=== PATIENT | female | born 1955 | race Caucasian/White ===

== ENCOUNTER 2017-08-14 15:01 | Inpatient (IN) | payer BC ==
[2017-08-14] MEDS ORDERED: ASPIRIN 81 MG PO STA (15:52)
--- NOTE | 2017-08-14 15:56 | ED ---
General Adult HPI - General Chief complaint: Recheck/Abnormal Lab/Rx Stated complaint: Hypertension Time Seen by Provider: 08/14/17 15:37 Source: patient Mode of arrival: ambulatory Limitations: no limitations - History of Present Illness Initial comments: Patient is a 62-year-old female presenting for abdominal chest discomfort. She states that she was in her yard earlier today and she felt like her heart was "flipping" and she was having "strong muscle contractions". She also admits to "chest discomfort" but no overt chest pain. She states that she has a history of hypertension, thyroid disease and has been taking her blood pressure and measured 166/90, 145/92 and also denies any nausea/vomiting/diarrhea or shortness of breath. Pt also denies any prolonged periods of immobility, CA, DVT /PE, estrogen use, or recent surgery. - Related Data Home Medications Medication Instructions Recorded Confirmed Gabapentin [Neurontin] 100 mg PO BID 08/14/17 08/14/17 Levothyroxine Sodium [Levoxyl] 75 mcg PO DAILY 08/14/17 08/14/17 Lisinopril-Hctz 20-25 mg 1 tab PO DAILY 08/14/17 08/14/17 [Zestoretic 20-25] amLODIPine [Norvasc] 5 mg PO DAILY 08/14/17 08/14/17 Previous Rx's Medication Instructions Recorded Hydrocodone/Acetaminophen [[place] 1 each PO Q6HR PRN #15 tab 08/02/13 5-325] Allergies Allergy/AdvReac Type Severity Reaction Status Date / Time Penicillins Allergy Itching Verified 08/14/17 15:14 Review of Systems ROS Statement: Those systems with pertinent positive or pertinent negative responses have been documented in the HPI. Constitutional: Negative for chills, fatigue and fever. HENT: Negative for congestion. Respiratory: Negative for chest tightness, shortness of breath and wheezing. Negative for cough Cardiovascular: Positive for chest pain and palpitations. Gastrointestinal: Negative for abdominal pain. Negative for abdominal distention , diarrhea, nausea and vomiting. Genitourinary: Negative for dysuria. Musculoskeletal: Negative for back pain, neck pain and neck stiffness. Skin: Negative for color change. Neurological: Negative for dizziness, speech difficulty, weakness and light- headedness. Psychiatric/Behavioral: Negative for agitation and confusion. The patient is not nervous/anxious. ROS Other: All systems not noted in ROS Statement are negative. Past Medical History Past Medical History: Hyperlipidemia, Hypertension History of Any Multi-Drug Resistant Organisms: None Reported Past Surgical History: No Surgical Hx Reported Past Psychological History: No Psychological Hx Reported Smoking Status: Never smoker Past Alcohol Use History: None Reported Past Drug Use History: None Reported General Exam - General Exam Comments Initial Comments: Constitutional: Pt is oriented to person, place, and time. Pt appears well- developed and well-nourished. No distress. HENT: Head: Normocephalic and atraumatic. Eyes: EOM are normal. Neck: Normal range of motion. Neck supple. Cardiovascular: Irregular rhythm, normal rate, S1 normal, S2 normal and normal heart sounds. Exam reveals no gallop and no friction rub. No murmur heard. Pulmonary/Chest: Effort normal and breath sounds normal. No tachypnea and no bradypnea. No respiratory distress. No wheezes or rales noted. Abdominal: Soft. Bowel sounds are normal. Pt exhibits no shifting dullness, no distension, no pulsatile liver, no fluid wave, no abdominal bruit and no ascites. There is no tenderness. There is no rigidity, no rebound, no guarding, no tenderness at McBurney's point and negative Bear's sign. Musculoskeletal: Normal range of motion. Neurological: Pt is alert and oriented to person, place, and time. No cranial nerve deficit. Skin: Skin is warm and dry. No rash noted. Pt is not diaphoretic. No erythema. No pallor. Psychiatric: Pt has a normal mood and affect. Pt behavior is normal. Thought content normal. Limitations: no limitations Course Vital Signs 08/14/17 08/14/17 15:12 16:25 Temperature 98.1 F Pulse Rate 60 78 Respiratory 20 20 Rate Blood Pressure 140/92 158/102 O2 Sat by Pulse 100 99 Oximetry EKG Findings - EKG Comments: EKG Findings:: EKG shows atrial fibrillation with significant artifact in leads 2 and 3. However there are no significant ST depressions or elevations. Rate is 78 bpm, QRS 98, QTC 446. Medical Decision Making - Medical Decision Making Laboratory studies showed that there is no leukocytosis and coagulations were within normal limits. Electrolytes are relatively normal and troponin was negative. BNP was also pending at the time of disposition. EKG did show atrial fibrillation which appears to be new onset and therefore the patient was started on low intensity heparin.Explained all labs and diagnostic test results and that we will admit patient to hospital. Pt is agreeable to plan and case has been discussed with Dr. Tierney and they agree to accept the pt. additionally , medications to cardiac for the patient were not given as it is unclear whether this is a 48 hour timeframe. - Lab Data Result diagrams: 08/14/17 16:20 08/14/17 16:20 Lab Results 08/14/17 08/14/17 08/14/17 Range/Units 16:20 16:20 16:20 WBC 6.7 (3.8-10.6) k/uL RBC 4.81 (3.80-5.40) m/uL Hgb 14.8 (11.4-16.0) gm/dL Hct 41.8 (34.0-46.0) % MCV 86.9 (80.0-100.0) fL MCH 30.8 (25.0-35.0) pg MCHC 35.5 (31.0-37.0) g/dL RDW 12.7 (11.5-15.5) % Plt Count 193 (150-450) k/uL Neutrophils % 60 % Lymphocytes % 32 % Monocytes % 5 % Eosinophils % 1 % Basophils % 1 % Neutrophils # 4.0 (1.3-7.7) k/uL Lymphocytes # 2.1 (1.0-4.8) k/uL Monocytes # 0.4 (0-1.0) k/uL Eosinophils # 0.1 (0-0.7) k/uL Basophils # 0.1 (0-0.2) k/uL PT 10.5 (9.0-12.0) sec INR 1.1 (<1.2) APTT 24.1 (22.0-30.0) sec Sodium 139 (137-145) mmol/L Potassium 3.3 L (3.5-5.1) mmol/L Chloride 98 (98-107) mmol/L Carbon Dioxide 26 (22-30) mmol/L Anion Gap 15 mmol/L BUN 16 (7-17) mg/dL Creatinine 0.58 (0.52-1.04) mg/dL Est GFR (CKD-EPI)AfAm >90 (>60 ml/min/1.73 sqM) Est GFR (CKD-EPI)NonAf >90 (>60 ml/min/1.73 sqM) Glucose 93 (74-99) mg/dL Calcium 9.6 (8.4-10.2) mg/dL Magnesium 1.8 (1.6-2.3) mg/dL Total Bilirubin 1.6 H (0.2-1.3) mg/dL AST 19 (14-36) U/L ALT 29 (9-52) U/L Alkaline Phosphatase 61 (38-126) U/L Troponin I (0.000-0.034) ng/mL Total Protein 7.2 (6.3-8.2) g/dL Albumin 4.2 (3.5-5.0) g/dL 08/14/17 Range/Units 16:20 WBC (3.8-10.6) k/uL RBC (3.80-5.40) m/uL Hgb (11.4-16.0) gm/dL Hct (34.0-46.0) % MCV (80.0-100.0) fL MCH (25.0-35.0) pg MCHC (31.0-37.0) g/dL RDW (11.5-15.5) % Plt Count (150-450) k/uL Neutrophils % % Lymphocytes % % Monocytes % % Eosinophils % % Basophils % % Neutrophils # (1.3-7.7) k/uL Lymphocytes # (1.0-4.8) k/uL Monocytes # (0-1.0) k/uL Eosinophils # (0-0.7) k/uL Basophils # (0-0.2) k/uL PT (9.0-12.0) sec INR (<1.2) APTT (22.0-30.0) sec Sodium (137-145) mmol/L Potassium (3.5-5.1) mmol/L Chloride (98-107) mmol/L Carbon Dioxide (22-30) mmol/L Anion Gap mmol/L BUN (7-17) mg/dL Creatinine (0.52-1.04) mg/dL Est GFR (CKD-EPI)AfAm (>60 ml/min/1.73 sqM) Est GFR (CKD-EPI)NonAf (>60 ml/min/1.73 sqM) Glucose (74-99) mg/dL Calcium (8.4-10.2) mg/dL Magnesium (1.6-2.3) mg/dL Total Bilirubin (0.2-1.3) mg/dL AST (14-36) U/L ALT (9-52) U/L Alkaline Phosphatase (38-126) U/L Troponin I <0.012 (0.000-0.034) ng/mL Total Protein (6.3-8.2) g/dL Albumin (3.5-5.0) g/dL Disposition Clinical Impression: Atrial fibrillation Disposition: ADMITTED IP TO THIS HOSP Condition: Good Referrals: Carol Curtis MD [Primary Care Provider] - 1-2 days Time of Disposition: 17:38 Decision to Admit Reason: Admit from EC Decision Date: 08/14/17 Decision Time: 17:38
[2017-08-14 16:42] LABS: Basophils # (A) 0.1 k/uL (0-0.2); Basophils % (A) 1 %; Eosinophils # (A) 0.1 k/uL (0-0.7); Eosinophils % (A) 1 %; HCT 41.8 % (34.0-46.0); HGB 14.8 gm/dL (11.4-16.0); Lymphocytes # (A) 2.1 k/uL (1.0-4.8); Lymphocytes % (A) 32 %; MCH 30.8 pg (25.0-35.0); MCHC 35.5 g/dL (31.0-37.0); MCV 86.9 fL (80.0-100.0); Mean Platelet Volume 8.2; Monocytes # (A) 0.4 k/uL (0-1.0); Monocytes % (A) 5 %; Neutrophils % (A) 60 %; Platelet Count 193 k/uL (150-450); RBC 4.81 m/uL (3.80-5.40); RDW 12.7 % (11.5-15.5); WBC 6.7 k/uL (3.8-10.6)
[2017-08-14 16:50] LABS: INR 1.1 (<1.2); Partial Thromboplastin Time 24.1 sec (22.0-30.0); Prothrombin Time 10.5 sec (9.0-12.0)
--- NOTE | 2017-08-14 16:50 | XR ---
EXAMINATION TYPE: XR chest 2V DATE OF EXAM: 08/14/2017 COMPARISON: Prior chest x-ray 05/24/2011 HISTORY: Chest pain and hypertension TECHNIQUE: Frontal and lateral views of the chest are obtained. FINDINGS: Is no interval change. Patient is rotated. There are overlying cardiac leads. IMPRESSION: Cardiomegaly.
[2017-08-14 16:56] LABS: ALT 29 U/L (9-52); AST 19 U/L (14-36); Albumin 4.2 g/dL (3.5-5.0); Alkaline Phosphatase 61 U/L (38-126); Anion Gap 15 mmol/L; Blood Urea Nitrogen 16 mg/dL (7-17); Calcium 9.6 mg/dL (8.4-10.2); Carbon Dioxide 26 mmol/L (22-30); Chloride 98 mmol/L (98-107); Glucose 93 mg/dL (74-99); Magnesium 1.8 mg/dL (1.6-2.3); Potassium 3.3 mmol/L (3.5-5.1); Sodium 139 mmol/L (137-145); Total Bilirubin 1.6 mg/dL (0.2-1.3); Total Protein 7.2 g/dL (6.3-8.2)
[2017-08-14] MEDS ORDERED: HEPARIN SODIUM,PORCINE 5,000 UNIT/ML 1 ML VIAL IV ONE (17:28)
[2017-08-14] MEDS ORDERED: HEPARIN SODIUM,PORCINE 5,000 UNIT/ML 1 ML VIAL IV PRN (17:28)
[2017-08-14] MEDS ORDERED: HEPARIN SOD,PORK IN 0.45% NACL 25,000 UNIT in 0.45% NACL 1 500ML.BAG IV SCH (17:30)
[2017-08-14] MEDS ORDERED: NALOXONE 0.4 MG/ML 1 ML VIAL IV PRN (17:39)
[2017-08-14] MEDS: HEPARIN SODIUM,PORCINE/D5W PMX 25,000 UNIT in DEXTROSE/WATER 1 500ML.BAG IV SCH (18:54)
[2017-08-14] MEDS ORDERED: GABAPENTIN 300 MG CAP PO STA (20:37)
[2017-08-14] MEDS ORDERED: HYDROcodone/APAP 5-325MG 1 EACH TAB PO PRN (21:12)
[2017-08-14 21:41] VITALS: BMI 26.9
[2017-08-14] MEDS ORDERED: Potassium Replacement Protocol 1 EACH MISC MISCELLANE PRN (22:48)
[2017-08-14] MEDS: POTASSIUM CHLORIDE ER 20 MEQ TAB.ER PO SCH (23:12)
[2017-08-15] MEDS: POTASSIUM CHLORIDE ER 20 MEQ TAB.ER PO SCH ×3 (00:27→12:18)
--- NOTE | 2017-08-15 00:47 | P.HPIM ---
History of Present Illness H&P Date: 08/14/17 Chief Complaint: Chest discomfort Patient is a 62-year-old female with a known history of hypertension, hyperlipidemia and hypothyroidism came to ER with complaints of chest pressure and palpitations. She states that she was in her yard earlier today and she felt like her heart was "flipping" and she was having "strong muscle contractions". She has been taking her blood pressure and measured 166/90, 145/ 92 and also denies any nausea/vomiting/diarrhea or shortness of breath. Pt also denies any prolonged periods of immobility, CA, DVT/PE, estrogen use, or recent surgery. Patient says that her mother had cancer and she has been stressful recently. Patient denied any recent illnesses. No fever no chills. No recent travel. Patient says is still having chest pressure. BNP 1020 TSH 2.5 Troponin 2 negative Chest x-ray showed cardiomegaly. EKG showed atrial fibrillation with ventricular rate of 78 Review of Systems Constitutional: Patient denies any fever or chills . No generalized weakness or weight loss. Abdomen: Patient denied nausea vomiting and diarrhea and abdominal pain. Cardiovascular: Patient does have chest pressure. Denied any chest pain. No shortness of breath. No leg swelling. Respiratory: patient denied any cough is from production. No shortness of breath Neurologic: Patient denied any numbness or tingling headache. Musculoskeletal: Patient denies any complaints of joint swelling or deformity. Skin: Negative Psychiatric: Negative Endocrine: No heat or cold intolerance. No recent weight gain. Genitourinary: No dysuria or hematuria. All other 14 point ROS negative except the above Past Medical History Past Medical History: Hyperlipidemia, Hypertension History of Any Multi-Drug Resistant Organisms: None Reported Past Surgical History: No Surgical Hx Reported Smoking Status: Never smoker - Past Family History Mother Family Medical History: Cancer Additional Family Medical History / Comment(s): colon ca, uterine ca Father Family Medical History: No Reported History Medications and Allergies Home Medications Medication Instructions Recorded Confirmed Type Hydrocodone/Acetaminophen [[place] 1 each PO Q6HR PRN #15 tab 08/02/13 08/14/17 Rx 5-325] Gabapentin [Neurontin] 100 mg PO BID 08/14/17 08/14/17 History Levothyroxine Sodium [Levoxyl] 75 mcg PO DAILY 08/14/17 08/14/17 History Lisinopril-Hctz 20-25 mg 1 tab PO DAILY 08/14/17 08/14/17 History [Zestoretic 20-25] amLODIPine [Norvasc] 5 mg PO DAILY 08/14/17 08/14/17 History Allergies Allergy/AdvReac Type Severity Reaction Status Date / Time Penicillins Allergy Itching Verified 08/14/17 15:14 Physical Exam Vitals: Vital Signs Temp Pulse Pulse Resp BP BP Pulse Ox 08/14/17 21:36 97.4 F L 90 16 144/97 94 L 08/14/17 20:40 98 20 160/80 95 08/14/17 18:59 63 10 L 163/95 96 08/14/17 18:00 71 20 163/109 99 08/14/17 17:00 78 20 158/89 96 08/14/17 16:25 78 20 158/102 99 08/14/17 15:12 98.1 F 60 20 140/92 100 Intake and Output 08/14/17 08/14/17 08/14/17 06:59 14:59 22:59 Other: # Voids 1 Weight 82.5 kg PHYSICAL EXAMINATION: Patient is lying in the bed comfortably, no acute distress, awake alert and oriented.. HEENT: Normocephalic. Neck is supple. Pupils reactive. Nostrils clear. Oral cavity is moist. Ears reveal no drainage. Neck reveals no JVD, carotid bruits, or thyromegaly. CHEST EXAMINATION: Trachea is central. Symmetrical expansion. Lung goldman clear to auscultation and percussion. CARDIAC: Normal S1, S2 with no gallops. Irregularly irregular rhythm. No murmurs ABDOMEN: Soft. Bowel sounds normal. No organomegaly. No abdominal bruits. Extremities: reveal no edema. No clubbing or cyanosis Neurologically awake, alert, oriented x3 with well-coordinated movements. No focal deficits noted Skin: No rash or skin lesions. Psychiatric: Coperative. Nonsuicidal. Anxious. Musculoskeletal: No joint swelling or deformity. Normal range of motion. Results CBC & Chem 7: 08/14/17 16:20 08/14/17 16:20 Labs: Abnormal Lab Results - Last 24 Hours (Table) 08/14/17 Range/Units 16:20 Potassium 3.3 L (3.5-5.1) mmol/L Total Bilirubin 1.6 H (0.2-1.3) mg/dL Assessment and Plan Assessment: New onset atrial fibrillation. No RVR Hypertension Hyperlipidemia Hypothyroidism Mild hypokalemia 3.3 Plan: Patient was started on heparin drip. Replace percussion. Current with home medications. Cardiology consultation. Continue the telemetry monitoring and serial troponins and EKG. Continue with home blood pressure medications . Norvasc, hydrochlorothiazide/ lisinopril. Further recommendations based on the clinical course. Time with Patient: Greater than 30
[2017-08-15] MEDS: LEVOTHYROXINE 75 MCG TAB PO SCH (06:30)
[2017-08-15 08:29] LABS: Anion Gap 13 mmol/L; Blood Urea Nitrogen 13 mg/dL (7-17); Calcium 8.9 mg/dL (8.4-10.2); Carbon Dioxide 26 mmol/L (22-30); Chloride 98 mmol/L (98-107); Glucose 97 mg/dL (74-99); Potassium 3.1 mmol/L (3.5-5.1); Sodium 137 mmol/L (137-145)
[2017-08-15] MEDS ORDERED: GABAPENTIN 100 MG CAP PO SCH (09:00)
[2017-08-15] MEDS: LISINOPRIL-HCTZ 20-25 MG 1 EACH TAB PO SCH (09:05)
[2017-08-15] MEDS: amLODIPine 5 MG TAB PO SCH (09:16)
[2017-08-15] MEDS ORDERED: Potassium Replacement Protocol 1 EACH MISC MISCELLANE PRN (09:55)
[2017-08-15] MEDS: CARVEDILOL 3.125 MG TAB PO SCH ×2 (11:29→16:57)
--- NOTE | 2017-08-15 14:26 | P.CRDCN ---
History of Present Illness History of present illness: Mr. Cervantes a pleasant 62 year female past medical history significant for hypertension, hypothyroidism and previous CVA. She denies history of coronary artery disease, atrial fibrillation, dyslipidemia or diabetes mellitus. She states she has never seen a lead refiner for any reason. We have see her in consultation for new onset atrial fibrillation. She states over the previous few days she's been feeling increasingly weak fatigued and with some palpitations in her chest. She presents to the hospital and EKG revealed atrial fibrillation with controlled ventricular response. She has been started on a heparin infusion. Her heart rate has remained controlled on telemetry with no evidence of rapid ventricular response. She complains of generalized chest discomfort described as a tight sensation with mild shortness of breath. She states when she gets up and mildly encroaches of her heart rate goes up to approximately 160s. Laboratory data reviewed, hemoglobin 14.8, platelets 193, sodium 137, potassium 3.1, magnesium 1.8, creatinine 0.6, TSH 2.58, proBNP 1020, cardiac enzymes negative 1. Current cardiac medications include Norvasc 5 mg daily, Zestoretic 20/25 mg daily. She states she suffered a CVA when she was 40 years old but she does not recall many details from that moment that she had some right-sided weakness that has since resolved. She is unclear if this was a hemorrhagic or ischemic stroke. Review of Systems At the time of my exam: CONSTITUTIONAL: Denies fever. Denies chills. EYES: Denies blurred vision. Denies vision changes. Denies eye pain. EARS, NOSE, MOUTH & THROAT: Denies headache. Denies sore throat. Denies ear pain. CARDIOVASCULAR: Complains of nonspecific chest discomfort. Denies shortness of breath. Denies orthopnea. Denies PND. Complains of palpitations with exertion. RESPIRATORY: Denies cough. GASTROINTESTINAL: Denies abdominal pain. Denies diarrhea. Denies constipation. Denies nausea. Denies vomiting. MUSCULOSKELETAL: Denies myalgias. INTEGUMENTARY: Denies pruitis. Denies rash. NEUROLOGIC: Denies numbness. Denies tingling. Denies weakness. PSYCHIATRIC: Denies anxiety. Denies depression. ENDOCRINE: Denies fatigue. Denies weight change. Denies polydipsia. Denies polyurina. GENITOURINARY: Denies burning, hematuria or urgency with micturation. HEMATOLOGIC: Denies history of anemia. Denies bleeding. Past Medical History Past Medical History: Hyperlipidemia, Hypertension History of Any Multi-Drug Resistant Organisms: None Reported Past Surgical History: No Surgical Hx Reported Past Anesthesia/Blood Transfusion Reactions: No Reported Reaction Smoking Status: Never smoker - Past Family History Mother Family Medical History: Cancer Additional Family Medical History / Comment(s): colon ca, uterine ca Father Family Medical History: No Reported History Medications and Allergies Home Medications Medication Instructions Recorded Confirmed Type Gabapentin [Neurontin] 100 mg PO DAILY@1200 08/14/17 08/15/17 History Levothyroxine Sodium [Levoxyl] 75 mcg PO DAILY 08/14/17 08/15/17 History Lisinopril-Hctz 20-25 mg 1 tab PO DAILY 08/14/17 08/15/17 History [Zestoretic 20-25] amLODIPine [Norvasc] 5 mg PO DAILY 08/14/17 08/15/17 History Gabapentin [Neurontin] 300 mg PO BID 08/15/17 08/15/17 History Allergies Allergy/AdvReac Type Severity Reaction Status Date / Time Penicillins Allergy Itching Verified 08/15/17 12:03 Physical Exam Vitals: Vital Signs Temp Pulse Pulse Resp BP BP Pulse Ox 08/15/17 12:00 98.3 F 71 18 119/87 95 08/15/17 07:42 98.3 F 76 18 127/82 92 L 08/15/17 03:40 76 16 117/84 93 L 08/14/17 23:10 97.7 F 70 16 131/84 94 L 08/14/17 21:36 97.4 F L 90 16 144/97 94 L 08/14/17 21:00 97.4 F L 90 16 144/97 94 L 08/14/17 20:40 98 20 160/80 95 08/14/17 18:59 63 10 L 163/95 96 08/14/17 18:00 71 20 163/109 99 08/14/17 17:00 78 20 158/89 96 08/14/17 16:25 78 20 158/102 99 08/14/17 15:12 98.1 F 60 20 140/92 100 Intake and Output 08/14/17 08/15/17 08/15/17 22:59 06:59 14:59 Intake Total 125.376 960 Balance 125.376 960 Intake: Intake, IV Titration 125.376 Amount Heparin Sodium,Porcine/ 125.376 D5w Pmx 25,000 unit In Dextrose/Water 1 500ml. bag @ 12 UNITS/KG/HR 19. 59 mls/hr IV .Q24H ANMOL Rx #:[id number] Oral 960 Other: # Voids 1 1 1 Weight 82.5 kg 82.3 kg Blood pressure 119/87 heart rate 71 afebrile maintaining oxygen saturation on room air GENERAL: This is a 62-year-old female in no apparent distress at the time of my examination. HEENT: Head is atraumatic, normocephalic. Pupils are equal, round. Sclerae anicteric. Conjunctivae are clear. Mucous membranes of the mouth are moist. Neck is supple. There is no jugular venous distention. No carotid bruit is heard. LUNGS: Clear to auscultation no wheezes, rales or rhonchi. No chest wall tenderness is noted on palpation or with deep breathing. HEART: Irregular rate and rhythm without murmurs, rubs or gallops. S1 and S2 heard. ABDOMEN: Soft, nontender. Bowel sounds are heard. No organomegaly noted. EXTREMITIES: No evidence of peripheral edema and no calf tenderness noted. VASCULAR: Radial and dorsalis pedis pulses palpated, no evidence of clubbing. NEUROLOGIC: Patient is awake, alert and oriented x3. Results 08/14/17 16:20 08/15/17 06:52 Cardiac Enzymes 08/14/17 08/14/17 Range/Units 16:20 16:20 AST 19 (14-36) U/L Troponin I <0.012 (0.000-0.034) ng/mL Coagulation 08/14/17 08/15/17 08/15/17 Range/Units 16:20 00:38 06:52 PT 10.5 (9.0-12.0) sec APTT 24.1 36.9 H 62.8 H (22.0-30.0) sec 08/15/17 Range/Units 13:17 PT (9.0-12.0) sec APTT 46.3 H (22.0-30.0) sec CBC 08/14/17 Range/Units 16:20 WBC 6.7 (3.8-10.6) k/uL RBC 4.81 (3.80-5.40) m/uL Hgb 14.8 (11.4-16.0) gm/dL Hct 41.8 (34.0-46.0) % Plt Count 193 (150-450) k/uL Comprehensive Metabolic Panel 08/14/17 08/15/17 Range/Units 16:20 06:52 Sodium 139 137 (137-145) mmol/L Potassium 3.3 L 3.1 L (3.5-5.1) mmol/L Chloride 98 98 (98-107) mmol/L Carbon Dioxide 26 26 (22-30) mmol/L BUN 16 13 (7-17) mg/dL Creatinine 0.58 0.60 (0.52-1.04) mg/dL Glucose 93 97 (74-99) mg/dL Calcium 9.6 8.9 (8.4-10.2) mg/dL AST 19 (14-36) U/L ALT 29 (9-52) U/L Alkaline Phosphatase 61 (38-126) U/L Total Protein 7.2 (6.3-8.2) g/dL Albumin 4.2 (3.5-5.0) g/dL Current Medications Generic Name Dose Route Start Last Admin Trade Name Alinq PRN Reason Stop Dose Admin Hydrocodone Bitart/Acetaminophen 1 each 08/14/17 21:12 [place] 5-325 PO Q6HR PRN Pain Amlodipine Besylate 5 mg 08/15/17 09:00 08/15/17 09:16 Norvasc PO 5 mg DAILY ANMOL Administration Carvedilol 3.125 mg 08/15/17 10:45 08/15/17 11:29 Coreg PO 3.125 mg BID-W/MEALS ANMOL Administration Gabapentin 100 mg 08/15/17 09:00 08/15/17 09:16 Neurontin PO 100 mg BID ANMOL Administration Lisinopril/HCTZ 1 each 08/15/17 09:00 08/15/17 09:05 Zestoretic 20-25 PO 1 each DAILY ANMLO Administration Heparin Sodium (Porcine) 0 unit 08/14/17 17:28 08/15/17 01:18 Heparin IV 4,000 unit PER PROTOCOL PRN Administration Low PTT Protocol Heparin Sodium/Dextrose 25,000 500 mls @ 19.59 mls/hr 08/14/17 17:30 01:18 unit/ IV Solution IV 15 units/kg/hr .Q24H ANMOL 24.49 mls/hr Protocol Titration 12 UNITS/KG/HR Levothyroxine Sodium 75 mcg 08/15/17 06:30 08/15/17 06:30 Synthroid PO 75 mcg 0630 ANMOL Administration Miscellaneous Information 1 each 08/15/17 09:55 Potassium Per Protocol MISCELLANE DAILY PRN Per Protocol Protocol Naloxone HCl 0.2 mg 08/14/17 17:39 Narcan IV Q2M PRN Opioid Reversal Intake and Output 08/14/17 08/15/17 08/15/17 22:59 06:59 14:59 Intake Total 125.376 960 Balance 125.376 960 Intake: Intake, IV Titration 125.376 Amount Heparin Sodium,Porcine/ 125.376 D5w Pmx 25,000 unit In Dextrose/Water 1 500ml. bag @ 12 UNITS/KG/HR 19. 59 mls/hr IV .Q24H ANMOL Rx #:[id number] Oral 960 Other: # Voids 1 1 1 Weight 82.5 kg 82.3 kg 08/14/17 16:20 08/15/17 06:52 Assessment and Plan Assessment: ASSESSMENT 1. New-onset atrial fibrillation with controlled ventricular response 2. Hypertension 3. History of CVA, unknown if ischemic or hemorrhagic 4. Hypokalemia PLAN Obtain 2-D echocardiogram and Doppler study to assess cardiac structure and function. Replace potassium per protocol. Repeat potassium level in the morning. Continue with heparin infusion, left patient evaluated for insurance coverage of NOAC. CHADSVASC score 5. Add small dose of coreg 3.125 BID. If blood pressure does not tolerate this we can eliminate amlopdipine. Further recommendations to follow. Thank you kindly for this consultation. Nurse Practitioner note has been reviewed, I agree with a documented findings and plan of care. Patient was seen and examined.
[2017-08-15] MEDS: HEPARIN SODIUM,PORCINE/D5W PMX 25,000 UNIT in DEXTROSE/WATER 1 500ML.BAG IV SCH (14:27)
[2017-08-15] MEDS: GABAPENTIN 300 MG CAP PO SCH (20:20)
--- NOTE | 2017-08-16 00:28 | P.PN ---
Subjective Progress Note Date: 08/15/17 Principal diagnosis: New onset atrial fibrillation Patient is a 62-year-old female with a known history of hypertension, hyperlipidemia and hypothyroidism came to ER with complaints of chest pressure and palpitations. She states that she was in her yard earlier today and she felt like her heart was "flipping" and she was having "strong muscle contractions". She has been taking her blood pressure and measured 166/90, 145/ 92 and also denies any nausea/vomiting/diarrhea or shortness of breath. Pt also denies any prolonged periods of immobility, CA, DVT/PE, estrogen use, or recent surgery. Patient says that her mother had cancer and she has been stressful recently. Patient denied any recent illnesses. No fever no chills. No recent travel. Patient says is still having chest pressure. BNP 1020 TSH 2.5 Troponin 2 negative Chest x-ray showed cardiomegaly. EKG showed atrial fibrillation with ventricular rate of 78 08/15/2017 Patient continues to be in atrial fibrillation. Rate is controlled. Coreg has been added at low-dose. Cardiology has seen the patient and patient is being continued on heparin drip and final recommendation cardiology. 2-D echo cardiac was ordered. Potassium is being replaced today. Currently patient is still having symptoms of chest discomfort. No shortness of breath. No nausea vomiting or abdominal pain. Patient wants to start back on her Neurontin 300 mg twice a day and 100 mg at lunchtime. All other review of systems negative except the above. Current medications reviewed. Objective - Vital Signs Vital signs: Vital Signs Temp 98.3 F 08/15/17 12:00 Pulse 71 08/15/17 12:00 Resp 18 08/15/17 12:00 BP 119/87 08/15/17 12:00 Pulse Ox 95 08/15/17 12:00 Intake & Output 08/14/17 08/15/17 08/15/17 18:59 06:59 18:59 Intake Total 213.149 8094.044 Balance 935.471 3793.044 Weight 81.647 kg 82.3 kg Intake: Intake, IV Titration 125.376 322.044 Amount Heparin Sodium,Porcine/ 125.376 322.044 D5w Pmx 25,000 unit In Dextrose/Water 1 500ml. bag @ 12 UNITS/KG/HR 19. 59 mls/hr IV .Q24H [facility] Rx #:[id number] Oral 960 Other: # Voids 1 1 - Exam PHYSICAL EXAMINATION: Patient is lying in the bed comfortably, no acute distress, awake alert and oriented.. HEENT: Normocephalic. Neck is supple. Pupils reactive. Nostrils clear. Oral cavity is moist. Ears reveal no drainage. Neck reveals no JVD, carotid bruits, or thyromegaly. CHEST EXAMINATION: Trachea is central. Symmetrical expansion. Lung goldman clear to auscultation and percussion. CARDIAC: Normal S1, S2 with no gallops. No murmurs . Irregularly irregular rhythm ABDOMEN: Soft. Bowel sounds normal. No organomegaly. No abdominal bruits. Extremities: reveal no edema. No clubbing or cyanosis Neurologically awake, alert, oriented x3 with well-coordinated movements. No focal deficits noted Skin: No rash or skin lesions. Psychiatric: Coperative. Nonsuicidal Musculoskeletal: No joint swelling or deformity. Normal range of motion. - Labs CBC & Chem 7: 08/14/17 16:20 08/15/17 06:52 Labs: Abnormal Lab Results - Last 24 Hours (Table) 08/14/17 08/15/17 08/15/17 Range/Units 16:20 00:38 06:52 APTT 36.9 H (22.0-30.0) sec Potassium 3.3 L 3.1 L (3.5-5.1) mmol/L Total Bilirubin 1.6 H (0.2-1.3) mg/dL 08/15/17 08/15/17 Range/Units 06:52 13:17 APTT 62.8 H 46.3 H (22.0-30.0) sec Potassium (3.5-5.1) mmol/L Total Bilirubin (0.2-1.3) mg/dL Assessment and Plan Assessment: New onset atrial fibrillation. No RVR Hypertension Hyperlipidemia Hypothyroidism hypokalemia History of CVA/TIA Plan: Patient will be continued on on heparin drip. Replace potassium. Coreg was added as per cardiology. We will discontinue Norvasc if patient becomes hypotensive. Current with home medications. Cardiology is following. Continue the telemetry monitoring . Continue with home blood pressure medications . Norvasc, hydrochlorothiazide/ lisinopril. Further recommendations based on the clinical course. Time with Patient: Greater than 30
[2017-08-16] MEDS: LEVOTHYROXINE 75 MCG TAB PO SCH (06:21)
[2017-08-16] MEDS: CARVEDILOL 3.125 MG TAB PO SCH ×2 (06:22→16:28)
[2017-08-16] MEDS ORDERED: POTASSIUM CHLORIDE ER 20 MEQ TAB.ER PO SCH (08:00)
[2017-08-16] MEDS: amLODIPine 5 MG TAB PO SCH (08:26)
[2017-08-16] MEDS: LISINOPRIL-HCTZ 20-25 MG 1 EACH TAB PO SCH (08:26)
[2017-08-16] MEDS: GABAPENTIN 300 MG CAP PO SCH ×2 (08:26→21:20)
[2017-08-16] MEDS ORDERED: POTASSIUM CHLORIDE ER 20 MEQ TAB.ER PO STA (09:55)
[2017-08-16] MEDS: HEPARIN SODIUM,PORCINE/D5W PMX 25,000 UNIT in DEXTROSE/WATER 1 500ML.BAG IV SCH (11:12)
--- NOTE | 2017-08-16 12:04 | P.PN ---
Subjective Progress Note Date: 08/16/17 Mr. Cervantes a pleasant 62 year female past medical history significant for hypertension, hypothyroidism and previous CVA. She denies history of coronary artery disease, atrial fibrillation, dyslipidemia or diabetes mellitus. She states she has never seen a health evaluator for any reason. We have see her in consultation for new onset atrial fibrillation. She states over the previous few days she's been feeling increasingly weak fatigued and with some palpitations in her chest. She presents to the hospital and EKG revealed atrial fibrillation with controlled ventricular response. She has been started on a heparin infusion. Her heart rate has remained controlled on telemetry with no evidence of rapid ventricular response. She complains of generalized chest discomfort described as a tight sensation with mild shortness of breath. She states when she gets up and mildly encroaches of her heart rate goes up to approximately 160s. Laboratory data reviewed, hemoglobin 14.8, platelets 193, sodium 137, potassium 3.1, magnesium 1.8, creatinine 0.6, TSH 2.58, proBNP 1020, cardiac enzymes negative 1. Current cardiac medications include Norvasc 5 mg daily, Zestoretic 20/25 mg daily. She states she suffered a CVA when she was 40 years old but she does not recall many details from that moment that she had some right-sided weakness that has since resolved. She is unclear if this was a hemorrhagic or ischemic stroke. 08/16/2017 Patient was seen and examined this morning, continues to be in atrial fibrillation, her heart rate is in the 70s this morning. Blood pressure 120/ 80. Echocardiogram with Doppler study is still pending. We will check to see if the patient has coverage for Eliquis if so, we'll discontinue the heparin and initiate Eliquis 5 mg one tablet by mouth twice a day. Objective - Vital Signs Vital signs: Vital Signs Temp 97.5 F L 08/16/17 08:00 Pulse 62 08/16/17 11:36 Resp 14 08/16/17 11:03 BP 126/80 08/16/17 11:03 Pulse Ox 95 08/16/17 11:03 Intake & Output 08/15/17 08/16/17 08/16/17 18:59 06:59 18:59 Intake Total 1282.044 840 500 Balance 1282.044 840 500 Weight 82 kg Intake: IV 480 .9 240 Heparin Sodium,Porcine/ 240 D5w Pmx 25,000 unit In Dextrose/Water 1 500ml. bag @ 12 UNITS/KG/HR 19. 59 mls/hr IV .Q24H [facility] Rx #:[id number] Intake, IV Titration 322.044 500 Amount Heparin Sodium,Porcine/ 322.044 500 D5w Pmx 25,000 unit In Dextrose/Water 1 500ml. bag @ 12 UNITS/KG/HR 19. 59 mls/hr IV .Q24H [facility] Rx #:[id number] Oral 960 360 Other: Voiding Method Toilet Toilet # Voids 1 2 - Exam GENERAL: This is a 62-year-old female in no apparent distress at the time of my examination. HEENT: Head is atraumatic, normocephalic. Pupils are equal, round. Sclerae anicteric. Conjunctivae are clear. Mucous membranes of the mouth are moist. Neck is supple. There is no jugular venous distention. No carotid bruit is heard. LUNGS: Clear to auscultation no wheezes, rales or rhonchi. No chest wall tenderness is noted on palpation or with deep breathing. HEART: Irregular rate and rhythm without murmurs, rubs or gallops. S1 and S2 heard. ABDOMEN: Soft, nontender. Bowel sounds are heard. No organomegaly noted. EXTREMITIES: No evidence of peripheral edema and no calf tenderness noted. VASCULAR: Radial and dorsalis pedis pulses palpated, no evidence of clubbing. NEUROLOGIC: Patient is awake, alert and oriented x3. - Labs CBC & Chem 7: 08/14/17 16:20 08/16/17 06:24 Labs: Abnormal Lab Results - Last 24 Hours (Table) 08/15/17 08/16/17 Range/Units 13:17 06:24 APTT 46.3 H 49.4 H (22.0-30.0) sec Assessment and Plan Plan: Assessment and plan #1 chronic persistent atrial fibrillation #2 hypertension #3 history of CVA #4 hypokalemia Plan We will review the echocardiogram with Doppler study. Disease the patient has coverage, and if so we will initiate TeleQuest 5 mg one tablet by mouth twice a day for anticoagulation. The patient's IV heparin. Replace potassium. DNP note has been reviewed, I agree with a documented findings and plan of care. Patient was seen and examined.
[2017-08-16] MEDS ORDERED: APIXABAN 5 MG TAB PO ONE (15:35)
[2017-08-16] MEDS: SODIUM CHLORIDE 0.9% 1,000 ML IV SCH (16:27)
--- NOTE | 2017-08-16 18:38 | ECHOF ---
Referral Reason:new afib MEASUREMENTS -------- HEIGHT: 175.3 cm WEIGHT: 81.7 kg BP: 131/78 RVIDd: 4.0 cm (< 3.3) IVSd: 1.5 cm (0.6 - 1.1) LVIDd: 4.0 cm (3.9 - 5.3) LVPWd: 1.8 cm (0.6 - 1.1) IVSs: 1.9 cm LVIDs: 3.6 cm LVPWs: 1.9 cm LA Diam: 4.8 cm (2.7 - 3.8) LAESV Index (A-L): 42.64 ml/m Ao Diam: 3.9 cm (2.0 - 3.7) AV Cusp: 2.7 cm (1.5 - 2.6) LA Diam: 4.8 cm (2.7 - 3.8) MV EXCURSION: 23.037 mm (> 18.000) MV EF SLOPE: 56 mm/s (70 - 150) EPSS: 0.7 cm MV E Ross: 0.65 m/s MV DecT: 183 ms MV A Ross: 0.03 m/s MV E/A Ratio: 23.36 AR PHT: 814 ms RAP: 5.00 mmHg RVSP: 30.96 mmHg FINDINGS -------- Sinus rhythm. This was a technically good study. The left ventricular size is normal. Overall left ventricular systolic function is mildly impaired with, an EF between 45 - 50 %. The right ventricle is mild to moderately enlarged. The left atrium is moderately dilated. LA is severely dilated >40 ml/m2 The right atrial size is normal. There is mild aortic regurgitation. Mild mitral annular calcification present. There is trace mitral regurgitation. Mild tricuspid regurgitation present. There is no evidence of pulmonary hypertension. The right v entricular systolic pressure, as measured by Doppler, is 30.96mmHg. Trace/mild (physiologic) pulmonic regurgitation. The aortic root is mildy dilated. Ascending Aortic Root is dilated and measures 4.1cm. There is no pericardial effusion. CONCLUSIONS -------- 1. The left ventricular size is normal. 2. Overall left ventricular systolic function is mildly impaired with, an EF between 45 - 50 %. 3. The right ventricle is mild to moderately enlarged. 4. The left atrium is moderately dilated. 5. LA is severely dilated >40 ml/m2 6. The right atrial size is normal. 7. There is mild aortic regurgitation. 8. Mild mitral annular calcification present. 9. There is trace mitral regurgitation. 10. Mild tricuspid regurgitation present. 11. There is no evidence of pulmonary hypertension. 12. The right ventricular systolic pressure, as measured by Doppler, is 30.96mmHg. 13. Trace/mild (physiologic) pulmonic regurgitation. 14. The aortic root is mildy dilated. 15. Ascending Aortic Root is dilated and measures 4.1cm. 16. There is no pericardial effusion. [employer] SCREW[employer]KER: Oksana Lazcano RDCS
[2017-08-16] MEDS: APIXABAN 5 MG TAB PO SCH (21:19)
--- NOTE | 2017-08-17 02:28 | P.PN ---
Subjective Progress Note Date: 08/16/17 Principal diagnosis: New onset atrial fibrillation Patient is a 62-year-old female with a known history of hypertension, hyperlipidemia and hypothyroidism came to ER with complaints of chest pressure and palpitations. She states that she was in her yard earlier today and she felt like her heart was "flipping" and she was having "strong muscle contractions". She has been taking her blood pressure and measured 166/90, 145/ 92 and also denies any nausea/vomiting/diarrhea or shortness of breath. Pt also denies any prolonged periods of immobility, CA, DVT/PE, estrogen use, or recent surgery. Patient says that her mother had cancer and she has been stressful recently. Patient denied any recent illnesses. No fever no chills. No recent travel. Patient says is still having chest pressure. BNP 1020 TSH 2.5 Troponin 2 negative Chest x-ray showed cardiomegaly. EKG showed atrial fibrillation with ventricular rate of 78 08/15/2017 Patient continues to be in atrial fibrillation. Rate is controlled. Coreg has been added at low-dose. Cardiology has seen the patient and patient is being continued on heparin drip and final recommendation cardiology. 2-D echo cardiac was ordered. Potassium is being replaced today. Currently patient is still having symptoms of chest discomfort. No shortness of breath. No nausea vomiting or abdominal pain. Patient wants to start back on her Neurontin 300 mg twice a day and 100 mg at lunchtime. 08/16/2017 Patient was started on oral anticoagulation. No complaints of chest pain or shortness of breath. Dizziness is improving slowly. Heart rate is controlled. Cardiology is following. No nausea vomiting or abdominal pain. All other review of systems negative except the above. Current medications reviewed. Objective - Vital Signs Vital signs: Vital Signs Temp 97.5 F L 08/16/17 08:00 Pulse 92 08/16/17 15:52 Resp 16 08/16/17 15:52 BP 144/97 08/16/17 15:17 Pulse Ox 94 L 08/16/17 15:17 Intake & Output 08/15/17 08/16/17 08/16/17 18:59 06:59 18:59 Intake Total 1282.044 840 980 Balance 1282.044 840 980 Weight 82 kg Intake: IV 480 .9 240 Heparin Sodium,Porcine/ 240 D5w Pmx 25,000 unit In Dextrose/Water 1 500ml. bag @ 12 UNITS/KG/HR 19. 59 mls/hr IV .Q24H [facility] Rx #:[id number] Intake, IV Titration 322.044 500 Amount Heparin Sodium,Porcine/ 322.044 500 D5w Pmx 25,000 unit In Dextrose/Water 1 500ml. bag @ 12 UNITS/KG/HR 19. 59 mls/hr IV .Q24H [facility] Rx #:[id number] Oral 960 360 480 Other: Voiding Method Toilet Toilet # Voids 1 2 1 # Bowel Movements 0 - Exam PHYSICAL EXAMINATION: Patient is lying in the bed comfortably, no acute distress, awake alert and oriented.. HEENT: Normocephalic. Neck is supple. Pupils reactive. Nostrils clear. Oral cavity is moist. Ears reveal no drainage. Neck reveals no JVD, carotid bruits, or thyromegaly. CHEST EXAMINATION: Trachea is central. Symmetrical expansion. Lung goldman clear to auscultation and percussion. CARDIAC: Normal S1, S2 with no gallops. No murmurs . Irregularly irregular rhythm ABDOMEN: Soft. Bowel sounds normal. No organomegaly. No abdominal bruits. Extremities: reveal no edema. No clubbing or cyanosis Neurologically awake, alert, oriented x3 with well-coordinated movements. No focal deficits noted Skin: No rash or skin lesions. Psychiatric: Coperative. Nonsuicidal Musculoskeletal: No joint swelling or deformity. Normal range of motion. - Labs CBC & Chem 7: 08/14/17 16:20 08/16/17 15:44 Labs: Abnormal Lab Results - Last 24 Hours (Table) 08/16/17 Range/Units 06:24 APTT 49.4 H (22.0-30.0) sec Assessment and Plan Assessment: New onset atrial fibrillation. No RVR Hypertension Hyperlipidemia Hypothyroidism hypokalemia History of CVA/TIA Plan: Patient was on on heparin drip. Changed to oral anticoagulation with Eliquis. Replace potassium. Coreg was added as per cardiology. Continue with Norvasc. Cardiology is following. Continue the telemetry monitoring . Continue with home blood pressure medications . Norvasc, hydrochlorothiazide/ lisinopril. Further recommendations based on the clinical course. Time with Patient: Greater than 30
[2017-08-17] MEDS: LEVOTHYROXINE 75 MCG TAB PO SCH (07:08)
[2017-08-17] MEDS: CARVEDILOL 3.125 MG TAB PO SCH (07:08)
[2017-08-17] MEDS: APIXABAN 5 MG TAB PO SCH ×2 (08:30→21:23)
[2017-08-17] MEDS: LISINOPRIL-HCTZ 20-25 MG 1 EACH TAB PO SCH (08:30)
[2017-08-17] MEDS: amLODIPine 5 MG TAB PO SCH (08:30)
[2017-08-17] MEDS: GABAPENTIN 300 MG CAP PO SCH ×2 (08:31→21:23)
[2017-08-17] MEDS: SODIUM CHLORIDE 0.9% 1,000 ML IV SCH (10:44)
[2017-08-17] MEDS ORDERED: LACTATED RINGERS 1,000 ML IV SCH (11:29)
[2017-08-17] MEDS ORDERED: fentaNYL (PF) 50 MCG/ML 2 ML AMP ONE (12:00)
[2017-08-17] MEDS ORDERED: PROPOFOL 10 MG/ML 20 ML VIAL IV ONE (12:00)
[2017-08-17] MEDS ORDERED: LIDOCAINE 1% INJ 10MG/ML (20 ML MDV) ONE (12:00)
[2017-08-17] MEDS ORDERED: IV FLUID CONTINUATION 1,000 ML IV ONE (12:02)
[2017-08-17] MEDS ORDERED: SODIUM CHLORIDE 0.9% 1,000 ML IV SCH (12:15)
--- NOTE | 2017-08-17 12:23 | P.TEE ---
Indications for Procedure(s): Atrial fibrillation, rule out atrial thrombus before cardioversion Date of Procedure: 08/17/17 Preoperative Diagnosis: Atrial fibrillation Postoperative Diagnosis: Same Description of Procedure(s): INDICATION: The patient is admitted with new-onset atrial fibrillation from which patient is symptomatic. Patient advised to be cardioversion preceded by SHAHEEN CONSENT: Verbal consent was obtained from the patient PROCEDURE: Patient was brought to the lab in a fasting state. She was prepped and draped in the usual fashion. She was given IV anesthesia by department of anesthesia. A lubricated Omni probe was introduced into the oropharynx and was advanced into the esophagus. Multiple views were obtained. Color and pulse wave Doppler was done. Saline contrast bubble injection was also performed. FINDINGS: The aortic valve is tricuspid with mild regurgitation. The aorta appears to be mildly dilated. The mitral valve appears to be normal with mild prolapse. Tricuspid valve could not be well-visualized. The interatrial septum showed evidence of PFO. There is crossing of bubbles with injection of the swelling bubbles to the left atrium. There is a significant smoking left atrium. There is also smoked suspicious clot in the left atrial appendage. Left and function appear to be fair IMPRESSION: #1. Dilated left atrium . #2. Smok in the left atrium and also left atrial appendage #3. Suspicious clot in left atrial appendage. #4. Presence of PFO. #5. Mildly dilated aortic root #6. Mild aortic regurgitation. #7. Impaired LV systolic function PLAN: Cardioversion was canceled because of suspicion of clot in the left atrial appendage. Patient will be adequately anticoagulated for 4 weeks before cardioversion.
[2017-08-17] MEDS: METOPROLOL TARTRATE 25 MG TAB PO SCH ×2 (13:00→21:24)
--- NOTE | 2017-08-17 15:36 | P.PN ---
Subjective 62-year-old female with a known history of hypertension, hyperlipidemia and hypothyroidism came to ER with complaints of chest pressure and palpitations. She states that she was in her yard earlier today and she felt like her heart was "flipping" and she was having "strong muscle contractions". She has been taking her blood pressure and measured 166/90, 145/92 and also denies any nausea /vomiting/diarrhea or shortness of breath. Pt also denies any prolonged periods of immobility, CA, DVT/PE, estrogen use, or recent surgery. Patient says that her mother had cancer and she has been stressful recently. Patient denied any recent illnesses. No fever no chills. No recent travel. Patient says is still having chest pressure. BNP 1020 TSH 2.5 Troponin 2 negative Chest x-ray showed cardiomegaly. EKG showed atrial fibrillation with ventricular rate of 78 08/15/2017 Patient continues to be in atrial fibrillation. Rate is controlled. Coreg has been added at low-dose. Cardiology has seen the patient and patient is being continued on heparin drip and final recommendation cardiology. 2-D echo cardiac was ordered. Potassium is being replaced today. Currently patient is still having symptoms of chest discomfort. No shortness of breath. No nausea vomiting or abdominal pain. Patient wants to start back on her Neurontin 300 mg twice a day and 100 mg at lunchtime. 08/16/2017 Patient was started on oral anticoagulation. No complaints of chest pain or shortness of breath. Dizziness is improving slowly. Heart rate is controlled. Cardiology is following. No nausea vomiting or abdominal pain. 08/17/2017 Patient underwent SHAHEEN which is suspicious for clot in the atrial appendage because of which patient did not undergo cardioversion patient is presently on anticoagulation which will be continued and cardiology is recommending monitoring. Constitutional: Denied any fatigue denied any fever. Cardio vascular: denied any chest pain, palpitations Gastrointestinal denied any nausea vomiting Pulmonary: Denied any shortness of breath cough Neurologic denied any new focal deficits Objective - Vital Signs Vital signs: Vital Signs Temp 97.1 F L 08/17/17 15:23 Pulse 57 L 08/17/17 15:23 Resp 16 08/17/17 15:23 BP 134/79 08/17/17 15:23 Pulse Ox 93 L 08/17/17 15:23 Intake & Output 08/16/17 08/17/17 08/17/17 18:59 06:59 18:59 Intake Total 980 200 Balance 980 200 Weight 82.5 kg Intake: IV 200 Intake, IV Titration 500 Amount Heparin Sodium,Porcine/ 500 D5w Pmx 25,000 unit In Dextrose/Water 1 500ml. bag @ 12 UNITS/KG/HR 19. 59 mls/hr IV .Q24H [facility] Rx #:[id number] Oral 480 Other: Voiding Method Toilet Toilet # Voids 1 1 1 # Bowel Movements 0 2 - Exam PHYSICAL EXAMINATION: GENERAL: The patient is alert and oriented x3, not in any acute distress. Well developed, well nourished. HEENT: Pupils are round and equally reacting to light. EOMI. No scleral icterus. No conjunctival pallor. Normocephalic, atraumatic. No pharyngeal erythema. No thyromegaly. CARDIOVASCULAR: S1 and S2 present. No murmurs, rubs, or gallops. Irregularly irregular rhythm PULMONARY: Chest is clear to auscultation, no wheezing or crackles. ABDOMEN: Soft, nontender, nondistended, normoactive bowel sounds. No palpable organomegaly. MUSCULOSKELETAL: No joint swelling or deformity. EXTREMITIES: No cyanosis, clubbing, or pedal edema. NEUROLOGICAL: Gross neurological examination did not reveal any focal deficits. SKIN: No rashes. - Labs CBC & Chem 7: 08/14/17 16:20 08/16/17 15:44 Assessment and Plan Plan: New onset atrial fibrillation. No RVR, patient is status post SHAHEEN but did not gone to undergo cardioversion because of possible clot in the atrial appendage Hypertension Hyperlipidemia Hypothyroidism hypokalemia History of CVA/TIA Plan: Patient was on on heparin drip. Changed to oral anticoagulation with Eliquis. Continue metoprolol Continue with Norvasc. Cardiology is following. Continue the telemetry monitoring . Continue with home blood pressure medications . Norvasc, hydrochlorothiazide/ lisinopril. Further recommendations based on the clinical course.
[2017-08-18] MEDS: LEVOTHYROXINE 75 MCG TAB PO SCH (06:45)
[2017-08-18 08:31] VITALS: RESP 16; TEMP 97.7
[2017-08-18] MEDS: APIXABAN 5 MG TAB PO SCH (08:34)
[2017-08-18] MEDS: LISINOPRIL-HCTZ 20-25 MG 1 EACH TAB PO SCH (08:34)
[2017-08-18] MEDS: METOPROLOL TARTRATE 25 MG TAB PO SCH (08:34)
[2017-08-18] MEDS: GABAPENTIN 300 MG CAP PO SCH (08:34)
[2017-08-18] MEDS ORDERED: amLODIPine 2.5 MG TAB PO SCH (09:00)
[2017-08-18 11:18] VITALS: BP 135/85; PULSE 76
[2017-08-18] MEDS: SODIUM CHLORIDE 0.9% 1,000 ML IV SCH (11:33)
--- NOTE | 2017-08-18 14:40 | P.PN ---
Subjective Progress Note Date: 08/18/17 Mr. Cervantes a pleasant 62 year female past medical history significant for hypertension, hypothyroidism and previous CVA. She denies history of coronary artery disease, atrial fibrillation, dyslipidemia or diabetes mellitus. She states she has never seen a locksmith helper for any reason. We have see her in consultation for new onset atrial fibrillation. She states over the previous few days she's been feeling increasingly weak fatigued and with some palpitations in her chest. She presents to the hospital and EKG revealed atrial fibrillation with controlled ventricular response. She has been started on a heparin infusion. Her heart rate has remained controlled on telemetry with no evidence of rapid ventricular response. She complains of generalized chest discomfort described as a tight sensation with mild shortness of breath. She states when she gets up and mildly encroaches of her heart rate goes up to approximately 160s. Laboratory data reviewed, hemoglobin 14.8, platelets 193, sodium 137, potassium 3.1, magnesium 1.8, creatinine 0.6, TSH 2.58, proBNP 1020, cardiac enzymes negative 1. Current cardiac medications include Norvasc 5 mg daily, Zestoretic 20/25 mg daily. She states she suffered a CVA when she was 40 years old but she does not recall many details from that moment that she had some right-sided weakness that has since resolved. She is unclear if this was a hemorrhagic or ischemic stroke. 08/16/2017 Patient was seen and examined this morning, continues to be in atrial fibrillation, her heart rate is in the 70s this morning. Blood pressure 120/ 80. Echocardiogram with Doppler study is still pending. We will check to see if the patient has coverage for Eliquis if so, we'll discontinue the heparin and initiate Eliquis 5 mg one tablet by mouth twice a day. 08/18/2017 Patient did undergo a SHAHEEN yesterday, there was evidence of smoke and suspicion of thrombus and for this reason the cardioversion was not performed. She remains in atrial fibrillation, her rate is under good control. Patient was seen and examined this morning, she feels well, denies any palpitations, no shortness of breath. Blood pressure 127/70 with a heart rate in 80s, 94% on room air. Potassium today is 3.7. Objective - Vital Signs Vital signs: Vital Signs Temp 97.7 F 08/18/17 08:00 Pulse 76 08/18/17 11:28 Resp 16 08/18/17 11:15 BP 135/85 08/18/17 11:15 Pulse Ox 93 L 08/18/17 11:15 Intake & Output 08/17/17 08/18/17 08/18/17 18:59 06:59 18:59 Intake Total 300 Balance 300 Weight 82.1 kg Intake: IV 200 Oral 100 Other: Voiding Method Toilet # Voids 1 1 - Exam GENERAL: This is a 62-year-old female in no apparent distress at the time of my examination. HEENT: Head is atraumatic, normocephalic. Pupils are equal, round. Sclerae anicteric. Conjunctivae are clear. Mucous membranes of the mouth are moist. Neck is supple. There is no jugular venous distention. No carotid bruit is heard. LUNGS: Clear to auscultation no wheezes, rales or rhonchi. No chest wall tenderness is noted on palpation or with deep breathing. HEART: Irregular rate and rhythm without murmurs, rubs or gallops. S1 and S2 heard. ABDOMEN: Soft, nontender. Bowel sounds are heard. No organomegaly noted. EXTREMITIES: No evidence of peripheral edema and no calf tenderness noted. VASCULAR: Radial and dorsalis pedis pulses palpated, no evidence of clubbing. NEUROLOGIC: Patient is awake, alert and oriented x3. - Labs CBC & Chem 7: 08/14/17 16:20 08/16/17 15:44 Assessment and Plan Plan: Assessment and plan #1 chronic persistent atrial fibrillation #2 hypertension #3 history of CVA #4 hypokalemia Plan Echocardiogram with Doppler study was performed revealed an ejection fraction of 45-50%. Patient did undergo a SHAHEEN yesterday which raise suspicion of possible thrombus and for this reason did not have a cardioversion performed. We will continue her on Eliquis 5 mg one tablet by mouth twice a day, follow-up appointment will be made with Dr. Aguilar in the office. DNP note has been reviewed, I agree with a documented findings and plan of care. Patient was seen and examined.
--- NOTE | 2017-08-18 15:13 | P.DS ---
Providers Date of admission: 08/14/17 17:39 Attending physician: Hakan Tierney Consults: 08/14/17 17:59 Consult Physician Routine Consulting Provider: Ginny Aguilar Consult Reason/Comments: Atrial fibrillation Do you want consulting provider notified?: Yes Primary care physician: Carol [facility] Course: 62-year-old female with a known history of hypertension, hyperlipidemia and hypothyroidism came to ER with complaints of chest pressure and palpitations. She states that she was in her yard earlier today and she felt like her heart was "flipping" and she was having "strong muscle contractions". She has been taking her blood pressure and measured 166/90, 145/92 and also denies any nausea /vomiting/diarrhea or shortness of breath. Pt also denies any prolonged periods of immobility, CA, DVT/PE, estrogen use, or recent surgery. Patient says that her mother had cancer and she has been stressful recently. Patient denied any recent illnesses. No fever no chills. No recent travel. Patient says is still having chest pressure. BNP 1020 TSH 2.5 Troponin 2 negative Chest x-ray showed cardiomegaly. EKG showed atrial fibrillation with ventricular rate of 78 08/15/2017 Patient continues to be in atrial fibrillation. Rate is controlled. Coreg has been added at low-dose. Cardiology has seen the patient and patient is being continued on heparin drip and final recommendation cardiology. 2-D echo cardiac was ordered. Potassium is being replaced today. Currently patient is still having symptoms of chest discomfort. No shortness of breath. No nausea vomiting or abdominal pain. Patient wants to start back on her Neurontin 300 mg twice a day and 100 mg at lunchtime. 08/16/2017 Patient was started on oral anticoagulation. No complaints of chest pain or shortness of breath. Dizziness is improving slowly. Heart rate is controlled. Cardiology is following. No nausea vomiting or abdominal pain. 08/17/2017 Patient underwent SHAHEEN which is suspicious for clot in the atrial appendage because of which patient did not undergo cardioversion patient is presently on anticoagulation which will be continued and cardiology is recommending monitoring. 08/18/2017 patient remains in rate controlled and patient is on anticoagulation patient is clinically stable and will be discharged today. PHYSICAL EXAMINATION: GENERAL: The patient is alert and oriented x3, not in any acute distress. Well developed, well nourished. HEENT: Pupils are round and equally reacting to light. EOMI. No scleral icterus. No conjunctival pallor. Normocephalic, atraumatic. No pharyngeal erythema. No thyromegaly. CARDIOVASCULAR: S1 and S2 present. No murmurs, rubs, or gallops. Irregularly irregular rhythm PULMONARY: Chest is clear to auscultation, no wheezing or crackles. ABDOMEN: Soft, nontender, nondistended, normoactive bowel sounds. No palpable organomegaly. MUSCULOSKELETAL: No joint swelling or deformity. EXTREMITIES: No cyanosis, clubbing, or pedal edema. NEUROLOGICAL: Gross neurological examination did not reveal any focal deficits. SKIN: No rashes. Assessment and Plan Plan: New onset atrial fibrillation. No RVR, patient is status post SHAHEEN but did not gone to undergo cardioversion because of possible clot in the atrial appendage. Patient is on oral anticoagulation Hypertension Hyperlipidemia Hypothyroidism hypokalemia History of CVA/TIA Patient Condition at Discharge: Good Plan - Discharge Summary Discharge Rx Participant: Yes New Discharge Prescriptions: New Apixaban [Eliquis] 5 mg PO BID #60 tab Metoprolol Tartrate [Lopressor] 25 mg PO BID #60 tab Continue Lisinopril-Hctz 20-25 mg [Zestoretic 20-25] 1 tab PO DAILY Levothyroxine Sodium [Levoxyl] 75 mcg PO DAILY Gabapentin [Neurontin] 100 mg PO DAILY@1200 Gabapentin [Neurontin] 300 mg PO BID Discontinued amLODIPine [Norvasc] 5 mg PO DAILY Discharge Medication List Gabapentin [Neurontin] 100 mg PO DAILY@1200 08/14/17 [History] Levothyroxine Sodium [Levoxyl] 75 mcg PO DAILY 08/14/17 [History] Lisinopril-Hctz 20-25 mg [Zestoretic 20-25] 1 tab PO DAILY 08/14/17 [History] Gabapentin [Neurontin] 300 mg PO BID 08/15/17 [History] Apixaban [Eliquis] 5 mg PO BID #60 tab 08/18/17 [Rx] Metoprolol Tartrate [Lopressor] 25 mg PO BID #60 tab 08/18/17 [Rx] Follow up Appointment(s)/Referral(s): Carol Curtis MD [Primary Care Provider] - 08/24/17 12:15 pm (Wednesday) Ginny Aguilar MD [STAFF PHYSICIAN] - 09/07/17 2:15 pm Patient Instructions/Handouts: A-fib (Atrial Fibrillation) (DC), Transesophageal Echocardiogram (DC) Activity/Diet/Wound Care/Special Instructions: Please pickle maker free first month of Altagracia at [facility] prior to discharge. Discharge Disposition: HOME SELF-CARE
== END 2017-08-18 14:48 | disposition home or self-care (01) | DRG 303 ==
LOC: EC 15:01 → 6SEL 17:39
PROVIDERS: ADMIT Internal Medicine; ATTEND Internal Medicine
PROC: B246ZZ4 Ultrasonography of Right and Left Heart, Transesophageal (ICD-10-PCS; principal; 2017-08-17 09:00)
DX: I51.3 Intracardiac thrombosis, not elsewhere classified (principal); I48.2 Chronic atrial fibrillation; I11.9 Hypertensive heart disease without heart failure; E87.6 Hypokalemia; E03.9 Hypothyroidism, unspecified; E78.5 Hyperlipidemia, unspecified; Z79.890 Hormone replacement therapy; Z79.899 Other long term (current) drug therapy; Z86.73 Personal history of transient ischemic attack (TIA), and cerebral infarction without residual deficits; Z88.0 Allergy status to penicillin; Z80.49 Family history of malignant neoplasm of other genital organs; Z80.0 Family history of malignant neoplasm of digestive organs
CPT/HCPCS: 36415; 71046; 80048; 80053; 83735; 83880; 84132; 84443; 84484; 85025; 85610; 85730; 93005; 93306; 93312; 93320; 93325; 96365; 96366; 96376; 99284

== ENCOUNTER 2017-09-20 12:19 | Inpatient (IN) | payer BC ==
--- NOTE | 2017-09-20 12:50 | ED ---
General Adult HPI - General Chief complaint: Arrhythmia/Palpitations Stated complaint: A-Fib Time Seen by Provider: 09/20/17 12:35 Source: patient, RN notes reviewed Mode of arrival: wheelchair Limitations: no limitations - History of Present Illness Initial comments: Patient is a pleasant [age]-year-old female presenting to the emergency Department after previously being seen at the primary care physician's office. Patient was transferred secondary to irregular heartbeat. Patient has a known history of atrial fibrillation and is on anticoagulation. Patient has seen cardiology for this and plan to have ablation done. Patient does have some discomfort on the left side of her chest. This has been present for several weeks however is worse today. Patient has continued palpitations described as skipping which has been persistent for the past month or so. Patient does have paresthesias mostly on both sides of her face and maybe in her arms. This is reported as new for her. - Related Data Home Medications Medication Instructions Recorded Confirmed Gabapentin [Neurontin] 100 mg PO DAILY@1200 08/14/17 09/20/17 Levothyroxine Sodium [Levoxyl] 75 mcg PO DAILY 08/14/17 09/20/17 Lisinopril-Hctz 20-25 mg 1 tab PO DAILY 08/14/17 09/20/17 [Zestoretic 20-25] Gabapentin [Neurontin] 300 mg PO BID 08/15/17 09/20/17 amLODIPine [Norvasc] 5 mg PO DAILY 09/16/17 09/20/17 Previous Rx's Medication Instructions Recorded Apixaban [Eliquis] 5 mg PO BID #60 tab 08/18/17 Metoprolol Tartrate [Lopressor] 25 mg PO BID #60 tab 08/18/17 Allergies Allergy/AdvReac Type Severity Reaction Status Date / Time Penicillins Allergy Itching Verified 09/20/17 12:29 Review of Systems ROS Statement: Those systems with pertinent positive or pertinent negative responses have been documented in the HPI. ROS Other: All systems not noted in ROS Statement are negative. Constitutional: Denies: fever Eyes: Denies: eye pain ENT: Denies: ear pain Respiratory: Denies: cough Cardiovascular: Reports: chest pain, palpitations Endocrine: Denies: fatigue Gastrointestinal: Denies: abdominal pain Genitourinary: Denies: dysuria Musculoskeletal: Denies: back pain Skin: Denies: rash Neurological: Reports: paresthesias. Denies: headache, weakness Past Medical History Past Medical History: Atrial Fibrillation, Hypertension, Osteoarthritis (OA) Additional Past Medical History / Comment(s): See Dr Aguilar's H&P History of Any Multi-Drug Resistant Organisms: None Reported Past Surgical History: No Surgical Hx Reported Additional Past Surgical History / Comment(s): laser eye surgery; colonoscopy; SHAHEEN Past Anesthesia/Blood Transfusion Reactions: No Reported Reaction Past Psychological History: No Psychological Hx Reported Smoking Status: Never smoker - Past Family History Mother Family Medical History: Cancer Additional Family Medical History / Comment(s): colon ca, uterine ca Father Family Medical History: No Reported History General Exam Limitations: no limitations General appearance: alert, in no apparent distress Head exam: Present: atraumatic Eye exam: Present: normal appearance, PERRL ENT exam: Present: normal oropharynx Neck exam: Present: normal inspection Respiratory exam: Present: normal lung sounds bilaterally Cardiovascular Exam: Present: irregular rhythm Expanded Peripheral pulses: 2+: Radial (R), Radial (L), Dorsalis Pedis (R), Dorsalis Pedis (L) GI/Abdominal exam: Present: soft. Absent: tenderness Extremities exam: Present: normal inspection. Absent: pedal edema, calf tenderness Neurological exam: Present: alert, oriented X3, CN II-XII intact. Absent: motor sensory deficit Psychiatric exam: Present: normal affect, normal mood Skin exam: Present: normal color Course Vital Signs 09/20/17 09/20/17 09/20/17 12:27 12:48 14:36 Temperature 98.5 F Pulse Rate 79 72 88 Respiratory 16 18 18 Rate Blood Pressure 150/102 171/113 157/104 O2 Sat by Pulse 96 96 98 Oximetry EKG Findings - EKG Comments: EKG Findings:: A. fib with rate of 83. QRS 98. QT 394. QTC or 62. Left axis. Incomplete right bundle-branch block. No acute ST change. Medical Decision Making - Medical Decision Making Patient reevaluated and resting comfortably in bed. Patient updated on results and plan. Only mild discomfort at this time. Case was discussed in detail with Dr. Tierney, who will admit for Dr. Curtis. Cardiology will be placed on consult. - Lab Data Result diagrams: 09/20/17 13:00 09/20/17 13:00 Lab Results 09/20/17 09/20/17 09/20/17 Range/Units 13:00 13:00 13:00 WBC 6.7 (3.8-10.6) k/uL RBC 4.82 (3.80-5.40) m/uL Hgb 15.0 (11.4-16.0) gm/dL Hct 42.9 (34.0-46.0) % MCV 89.0 (80.0-100.0) fL MCH 31.1 (25.0-35.0) pg MCHC 34.9 (31.0-37.0) g/dL RDW 13.0 (11.5-15.5) % Plt Count 214 (150-450) k/uL Neutrophils % 63 % Lymphocytes % 29 % Monocytes % 5 % Eosinophils % 1 % Basophils % 1 % Neutrophils # 4.2 (1.3-7.7) k/uL Lymphocytes # 2.0 (1.0-4.8) k/uL Monocytes # 0.3 (0-1.0) k/uL Eosinophils # 0.1 (0-0.7) k/uL Basophils # 0.1 (0-0.2) k/uL PT (9.0-12.0) sec INR (<1.2) APTT (22.0-30.0) sec Sodium 138 (137-145) mmol/L Potassium 3.4 L (3.5-5.1) mmol/L Chloride 98 (98-107) mmol/L Carbon Dioxide 28 (22-30) mmol/L Anion Gap 12 mmol/L BUN 11 (7-17) mg/dL Creatinine 0.60 (0.52-1.04) mg/dL Est GFR (CKD-EPI)AfAm >90 (>60 ml/min/1.73 sqM) Est GFR (CKD-EPI)NonAf >90 (>60 ml/min/1.73 sqM) Glucose 93 (74-99) mg/dL Calcium 9.6 (8.4-10.2) mg/dL Magnesium 1.9 (1.6-2.3) mg/dL Total Bilirubin 1.3 (0.2-1.3) mg/dL AST 17 (14-36) U/L ALT 23 (9-52) U/L Alkaline Phosphatase 68 (38-126) U/L Total Creatine Kinase 48 (30-135) U/L CK-MB (CK-2) 0.8 (0.0-2.4) ng/mL CK-MB (CK-2) Rel Index 1.7 Troponin I <0.012 (0.000-0.034) ng/mL NT-Pro-B Natriuret Pep pg/mL Total Protein 7.6 (6.3-8.2) g/dL Albumin 4.5 (3.5-5.0) g/dL TSH 2.570 (0.465-4.680) mIU/L Free T4 1.77 (0.78-2.19) ng/dL Free T3 pg/mL 3.0 (2.8-5.3) pg/ml 09/20/17 09/20/17 Range/Units 13:00 13:00 WBC (3.8-10.6) k/uL RBC (3.80-5.40) m/uL Hgb (11.4-16.0) gm/dL Hct (34.0-46.0) % MCV (80.0-100.0) fL MCH (25.0-35.0) pg MCHC (31.0-37.0) g/dL RDW (11.5-15.5) % Plt Count (150-450) k/uL Neutrophils % % Lymphocytes % % Monocytes % % Eosinophils % % Basophils % % Neutrophils # (1.3-7.7) k/uL Lymphocytes # (1.0-4.8) k/uL Monocytes # (0-1.0) k/uL Eosinophils # (0-0.7) k/uL Basophils # (0-0.2) k/uL PT 10.4 (9.0-12.0) sec INR 1.1 (<1.2) APTT 25.6 (22.0-30.0) sec Sodium (137-145) mmol/L Potassium (3.5-5.1) mmol/L Chloride (98-107) mmol/L Carbon Dioxide (22-30) mmol/L Anion Gap mmol/L BUN (7-17) mg/dL Creatinine (0.52-1.04) mg/dL Est GFR (CKD-EPI)AfAm (>60 ml/min/1.73 sqM) Est GFR (CKD-EPI)NonAf (>60 ml/min/1.73 sqM) Glucose (74-99) mg/dL Calcium (8.4-10.2) mg/dL Magnesium (1.6-2.3) mg/dL Total Bilirubin (0.2-1.3) mg/dL AST (14-36) U/L ALT (9-52) U/L Alkaline Phosphatase (38-126) U/L Total Creatine Kinase (30-135) U/L CK-MB (CK-2) (0.0-2.4) ng/mL CK-MB (CK-2) Rel Index Troponin I (0.000-0.034) ng/mL NT-Pro-B Natriuret Pep 1260 pg/mL Total Protein (6.3-8.2) g/dL Albumin (3.5-5.0) g/dL TSH (0.465-4.680) mIU/L Free T4 (0.78-2.19) ng/dL Free T3 pg/mL (2.8-5.3) pg/ml - Radiology Data Radiology results: image reviewed (Chest x-ray shows borderline cardiomegaly. Chronic changes. No acute process.) Disposition Clinical Impression: Atrial fibrillation, Chest pain Disposition: ADMITTED IP TO THIS HOSP Is patient prescribed a controlled substance at d/c from ED?: No Referrals: Carol Curtis MD [Primary Care Provider] - 1-2 days Decision Time: 15:43
[2017-09-20 13:15] LABS: Basophils # (A) 0.1 k/uL (0-0.2); Basophils % (A) 1 %; Eosinophils # (A) 0.1 k/uL (0-0.7); Eosinophils % (A) 1 %; HCT 42.9 % (34.0-46.0); Lymphocytes % (A) 29 %; MCH 31.1 pg (25.0-35.0); MCHC 34.9 g/dL (31.0-37.0); Mean Platelet Volume 7.9; Monocytes # (A) 0.3 k/uL (0-1.0); Monocytes % (A) 5 %; Neutrophils # (A) 4.2 k/uL (1.3-7.7); Neutrophils % (A) 63 %; Platelet Count 214 k/uL (150-450); RBC 4.82 m/uL (3.80-5.40); WBC 6.7 k/uL (3.8-10.6)
[2017-09-20 13:22] LABS: INR 1.1 (<1.2); Partial Thromboplastin Time 25.6 sec (22.0-30.0); Prothrombin Time 10.4 sec (9.0-12.0)
[2017-09-20 13:31] LABS: ALT 23 U/L (9-52); AST 17 U/L (14-36); Albumin 4.5 g/dL (3.5-5.0); Alkaline Phosphatase 68 U/L (38-126); Anion Gap 12 mmol/L; Blood Urea Nitrogen 11 mg/dL (7-17); Calcium 9.6 mg/dL (8.4-10.2); Carbon Dioxide 28 mmol/L (22-30); Chloride 98 mmol/L (98-107); Glucose 93 mg/dL (74-99); Magnesium 1.9 mg/dL (1.6-2.3); Potassium 3.4 mmol/L (3.5-5.1); Sodium 138 mmol/L (137-145); Total Bilirubin 1.3 mg/dL (0.2-1.3); Total Protein 7.6 g/dL (6.3-8.2)
[2017-09-20 13:33] LABS: Creatine Kinase 48 U/L (30-135)
[2017-09-20 13:46] LABS: Creatine Kinase MB 0.8 ng/mL (0.0-2.4); Troponin I <0.012 ng/mL (0.000-0.034)
[2017-09-20 13:48] LABS: T4, Free (Free Thyroxine) 1.77 ng/dL (0.78-2.19)
--- NOTE | 2017-09-20 13:48 | XR ---
EXAMINATION TYPE: XR chest 2V DATE OF EXAM: 09/20/2017 COMPARISON: 08/14/2017 HISTORY: 62-year-old female dysrhythmia TECHNIQUE: Frontal and lateral views FINDINGS: Heart upper limits of normal in size. Elongation/ectasia of the thoracic aorta. Mild diffuse intersti tial prominence as a chronic appearance. Some stringy atelectasis at the lower left lung. No consolid ation or pleural effusion. IMPRESSION: Borderline cardiomegaly. Chronic changes without acute process seen.
[2017-09-20] MEDS ORDERED: METOPROLOL TARTRATE 25 MG TAB PO STA (15:42)
[2017-09-20] MEDS ORDERED: ASPIRIN 81 MG PO STA (15:44)
[2017-09-20] MEDS ORDERED: NITROGLYCERIN SL TABS 0.4 MG TAB SUBLINGUAL PRN (15:44)
[2017-09-20] MEDS: NITROGLYCERIN OINT 1 INCH/GM PACKET TOPICAL SCH (18:14)
[2017-09-20 20:42] LABS: Creatine Kinase 41 U/L (30-135)
[2017-09-20 20:55] LABS: Creatine Kinase MB 0.6 ng/mL (0.0-2.4); Troponin I <0.012 ng/mL (0.000-0.034)
[2017-09-20] MEDS: APIXABAN 5 MG TAB PO SCH (21:50)
[2017-09-20] MEDS: GABAPENTIN 300 MG CAP PO SCH (21:51)
[2017-09-20] MEDS: METOPROLOL TARTRATE 25 MG TAB PO SCH (21:51)
--- NOTE | 2017-09-21 00:57 | P.HPIM ---
History of Present Illness H&P Date: 09/20/17 Chief Complaint: Irregular heartbeat Patient is a 62-year-old female with a known history of atrial fibrillation on anticoagulation, hypertension and osteoarthritis came to the hospital due to irregular heartbeat. Patient is supposed to follow with cardiology for ablation /cardioversion this following Wednesday. Patient developed palpitations and dizziness yesterday and patient went to see her primary care physician Dr. alfaro. Recommended to come to ER. Patient does have some discomfort on the left side of her chest. This has been present for several weeks however is worse today. Patient has continued palpitations described as skipping which has been persistent for the past month or so. Patient does have paresthesias mostly on both sides of her face. EKG showed atrial fibrillation Chest x-ray borderline cardiomegaly Review of Systems Constitutional: Patient denies any fever or chills . No generalized weakness or weight loss. Abdomen: Patient denied nausea vomiting and diarrhea and abdominal pain. Cardiovascular: Patient denies any chest pain or short of breath . Patient does have palpitations. Respiratory: patient denied any cough is from production. No shortness of breath Neurologic: Patient denied any numbness or tingling headache. Musculoskeletal: Patient denies any complaints of joint swelling or deformity. Skin: Negative Psychiatric: Negative Endocrine: No heat or cold intolerance. No recent weight gain. Genitourinary: No dysuria or hematuria. All other 14 point ROS negative except the above Past Medical History Past Medical History: Atrial Fibrillation, Hypertension, Osteoarthritis (OA) Additional Past Medical History / Comment(s): See Dr Aguilar's H&P, passed fx lt arm-cated only, age 23 had a misscarriage(recieved blood at that time) History of Any Multi-Drug Resistant Organisms: None Reported Past Surgical History: No Surgical Hx Reported Additional Past Surgical History / Comment(s): laser eye surgery-cataracts; colonoscopy; SHAHEEN Past Anesthesia/Blood Transfusion Reactions: No Reported Reaction Additional Past Anesthesia/Blood Transfusion Reaction / Comment(s): pt stated at age 23 had a misscarriage- received blood transfusion0 no reaction. Smoking Status: Never smoker - Past Family History Mother Family Medical History: Cancer, Diabetes Mellitus Additional Family Medical History / Comment(s): colon ca, uterine ca Father Family Medical History: No Reported History Sister(s) Family Medical History: Diabetes Mellitus Medications and Allergies Home Medications Medication Instructions Recorded Confirmed Type Gabapentin [Neurontin] 100 mg PO DAILY@1200 08/14/17 09/20/17 History Levothyroxine Sodium [Levoxyl] 75 mcg PO DAILY 08/14/17 09/20/17 History Lisinopril-Hctz 20-25 mg 1 tab PO DAILY 08/14/17 09/20/17 History [Zestoretic 20-25] Gabapentin [Neurontin] 300 mg PO BID 08/15/17 09/20/17 History Apixaban [Eliquis] 5 mg PO BID #60 tab 08/18/17 09/20/17 Rx Metoprolol Tartrate [Lopressor] 25 mg PO BID #60 tab 08/18/17 09/20/17 Rx amLODIPine [Norvasc] 5 mg PO DAILY 09/16/17 09/20/17 History Allergies Allergy/AdvReac Type Severity Reaction Status Date / Time Penicillins Allergy Itching Verified 09/20/17 20:32 Physical Exam Vitals: Vital Signs Temp Pulse Pulse Resp BP BP Pulse Ox 09/20/17 23:21 97.9 F 75 16 112/61 94 L 09/20/17 20:10 88 09/20/17 20:08 98.2 F 73 16 158/103 96 09/20/17 19:40 97.8 F 72 18 152/96 96 09/20/17 18:00 78 20 158/98 99 09/20/17 17:24 75 18 09/20/17 16:47 88 20 169/109 99 09/20/17 16:00 822 H 20 156/89 99 09/20/17 14:36 88 18 157/104 98 09/20/17 12:48 72 18 171/113 96 09/20/17 12:27 98.5 F 79 16 150/102 96 Intake and Output 09/20/17 09/20/17 09/21/17 14:59 22:59 06:59 Other: Weight 83.461 kg PHYSICAL EXAMINATION: Patient is lying in the bed comfortably, no acute distress, awake alert and oriented.. HEENT: Normocephalic. Neck is supple. Pupils reactive. Nostrils clear. Oral cavity is moist. Ears reveal no drainage. Neck reveals no JVD, carotid bruits, or thyromegaly. CHEST EXAMINATION: Trachea is central. Symmetrical expansion. Lung goldman clear to auscultation and percussion. CARDIAC: Normal S1, S2 with no gallops. No murmurs . Irregularly irregular rhythm ABDOMEN: Soft. Bowel sounds normal. No organomegaly. No abdominal bruits. Extremities: reveal no edema. No clubbing or cyanosis Neurologically awake, alert, oriented x3 with well-coordinated movements. No focal deficits noted Skin: No rash or skin lesions. Psychiatric: Coperative. Nonsuicidal Musculoskeletal: No joint swelling or deformity. Normal range of motion. Results CBC & Chem 7: 09/20/17 13:00 09/20/17 13:00 Labs: Abnormal Lab Results - Last 24 Hours (Table) 09/20/17 Range/Units 13:00 Potassium 3.4 L (3.5-5.1) mmol/L Thrombosis Risk Factor Assmnt - Choose All That Apply Each Factor Represents 1 point: Obesity (BMI >25) Other Risk Factors: Yes Each Risk Factor Represents 2 Points: Age 61-74 years Thrombosis Risk Factor Assessment Total Risk Factor Score: 3 Thrombosis Risk Factor Assessment Level: Moderate Risk Assessment and Plan Assessment: Persistent atrial fibrillation. Symptomatic. Hypertension Osteoarthritis Plan: Patient be continued on telemetry monitoring. Troponin 2 negative. TSH within normal limits. Cardiology was consulted. Further recommendations based on the clinical course. Time with Patient: Greater than 30
[2017-09-21] MEDS: NITROGLYCERIN OINT 1 INCH/GM PACKET TOPICAL SCH ×4 (01:02→18:45)
[2017-09-21 01:54] LABS: Creatine Kinase 37 U/L (30-135)
[2017-09-21 02:05] LABS: Creatine Kinase MB 0.6 ng/mL (0.0-2.4); Troponin I <0.012 ng/mL (0.000-0.034)
[2017-09-21 02:52] LABS: Cholesterol 174 mg/dL (<200); HDL Cholesterol 32 mg/dL (40-60); Triglycerides 436 mg/dL (<150)
[2017-09-21] MEDS: LEVOTHYROXINE 75 MCG TAB PO SCH (06:05)
[2017-09-21] MEDS: ACETAMINOPHEN TAB 325 MG TAB PO PRN ×2 (06:30→20:24)
[2017-09-21] MEDS: LISINOPRIL-HCTZ 20-25 MG 1 EACH TAB PO SCH (09:57)
[2017-09-21] MEDS: METOPROLOL TARTRATE 25 MG TAB PO SCH ×2 (09:57→20:25)
[2017-09-21] MEDS: amLODIPine 5 MG TAB PO SCH (09:58)
[2017-09-21] MEDS: ASPIRIN 325 MG TAB PO SCH (09:58)
[2017-09-21] MEDS: APIXABAN 5 MG TAB PO SCH ×2 (09:58→20:24)
[2017-09-21] MEDS: GABAPENTIN 300 MG CAP PO SCH ×2 (09:58→20:24)
--- NOTE | 2017-09-21 10:21 | CONS ---
CONSULTATION This is a 62-year-old lady who sees Dr. Aguilar in the office. She apparently was found to have a questionable thrombus in the left atrium and mostly some smoke and suspected clot in the left atrial appendage and was advised 4 weeks of anticoagulation on August 14. She was scheduled for a cardioversion tomorrow, but she came in from her primary care physician's office with complaints of having some discomfort in the left side of the chest very atypical and some palpitations. She is in atrial fibrillation, rate is well controlled. She has hypertension, hyperlipidemia, and also had a recent stress test, the results of which are not available. She is resting comfortably without symptoms. Her troponins are normal, pain seems atypical. Blood pressure is under good control and she remains in atrial fibrillation with a decent rate control on Eliquis 5 mg b.i.d. She is asymptomatic at the time of my evaluation. PAST MEDICAL HISTORY: 1. Hypertension. 2. Atrial fibrillation, recently discovered as a new onset on August 13 and a transesophageal echo revealed a questionable clot in the left atrium and systolic function was decreased in the 45% range. She has been adequately anticoagulated. 3. History of recent stress test, results of which are not available to me. 4. Echocardiogram from 08/16 revealed ejection fraction in the 45%-50% range without significant pulmonary hypertension. MEDICATIONS: At home include Eliquis 5 mg b.i.d., metoprolol tartrate 25 mg b.i.d., gabapentin, levothyroxine, lisinopril-hydrochlorothiazide, gabapentin, and amlodipine. ALLERGIES: PENICILLIN. REVIEW OF SYSTEMS: Unremarkable other than above-mentioned facts. PHYSICAL EXAMINATION: Blood pressure is 140/70, pulse rate is 70 per minute, irregular. HEENT: Unremarkable. Fundus was not examined by me. Neck is supple. There is no JVD. I do not hear a carotid bruit. Heart exam reveals S1, S2 with irregular rhythm, short systolic murmur. Lungs are clear. Abdomen is soft, nontender. Lower extremities reveal normal pulses. No edema. Central nervous system is normal. EKG revealed atrial fib, controlled rate, nonspecific ST-T changes. Laboratory data reveal normal troponins, thyroid functions are normal. No other significant abnormalities detected. IMPRESSION: 1. Atrial fibrillation with a controlled rate, adequately anticoagulated. 2. Hypertension. 3. Mild left ventricular dysfunction. 4. History of planned cardioversion tomorrow. RECOMMENDATIONS: I will speak to Dr. Aguilar to see if he can perform cardioversion today. Will keep the patient n.p.o. She understands the rationale, risks, benefits, and options for this approach. Thank you very much for the consult. JASON / OCTAVIANON: [id number] /
[2017-09-21] MEDS ORDERED: SODIUM CHLORIDE 0.9% 500 ML IV ONE (11:55)
[2017-09-21] MEDS ORDERED: LIDOCAINE 1% INJ 10MG/ML (20 ML MDV) ONE (11:59)
[2017-09-21] MEDS ORDERED: PROPOFOL 10 MG/ML 20 ML VIAL IV ONE (11:59)
[2017-09-21] MEDS ORDERED: MIDAZOLAM 2 MG/2 ML VIAL ONE (11:59)
[2017-09-21] MEDS ORDERED: BENZOCAINE SPRAY 1 CAN MUCOUS MEM ONE (12:12)
--- NOTE | 2017-09-21 12:30 | P.PCN ---
Date of Procedure: 09/21/17 Preoperative Diagnosis: Atrial fibrillation Postoperative Diagnosis: Successful cardioversion to sinus rhythm Procedure(s) Performed: SHAHEEN followed by cardioversion Description of Procedure: This patient was brought to the lab in a fasting state. She was given IV sedation by department of anesthesia. SHAHEEN was performed bedside. This did not reveal any different clot in the left appendage. Cardioversion was performed with 200 J of synchronized shock with anterior- posterior paddles. Patient converted to sinus rhythm. No immediate complications. Final impression: #1. Successful cardioversion. Plan: Patient will be continued on current medical therapy including anticoagulation. She'll also be started on flecainide 50 mg by mouth twice a day. Patient will be discharged home later today or tomorrow morning. Follow- up in the office in one to 2 weeks.
--- NOTE | 2017-09-21 12:33 | P.TEE ---
Indications for Procedure(s): Rule out presence of intracavitary clot before cardioversion. Date of Procedure: 09/21/17 Preoperative Diagnosis: Atrial fibrillation. Previous SHAHEEN showed a possible clot in the left atrial appendage Postoperative Diagnosis: Smoking the left atrium. No evidence of clot in the left atrial appendage Procedure(s) Performed: SHAHEEN followed by cardioversion Description of Procedure(s): CONSENT: Informed consent was obtained from the patient verbally PROCEDURE: Patient was given IV sedation by department of anesthesia. A lubricated Omni probe was introduced into the oropharynx, which was sprayed with Cetacaine. A lubricated Omni probe was introduced in the oropharynx and was advanced into the esophagus. Patient tolerated the procedure well. FINDINGS: This is a limited test to check and rule out clot in the left atrial appendage. There is smoke in the left atrial appendage and also left atrial but no definite clot was noted. IMPRESSION: No clot in the left atrial appendage. We will proceed with cardioversion PLAN: Cardioversion
[2017-09-21] MEDS ORDERED: IV FLUID CONTINUATION 500 ML IV ONE (12:37)
[2017-09-21] MEDS: SODIUM CHLORIDE 0.9% 1,000 ML IV SCH (14:10)
[2017-09-21] MEDS: FLECAINIDE 50 MG TAB PO SCH ×2 (14:12→20:25)
[2017-09-21] MEDS: GABAPENTIN 100 MG CAP PO SCH (14:12)
--- NOTE | 2017-09-21 19:04 | P.PN ---
Subjective Patient is a 62-year-old female with a known history of atrial fibrillation on anticoagulation, hypertension and osteoarthritis came to the hospital due to irregular heartbeat. Patient is supposed to follow with cardiology for ablation /cardioversion this following Wednesday. Patient developed palpitations and dizziness yesterday and patient went to see her primary care physician Dr. alfaro. Recommended to come to ER. Patient does have some discomfort on the left side of her chest. This has been present for several weeks however is worse today. Patient has continued palpitations described as skipping which has been persistent for the past month or so. Patient does have paresthesias mostly on both sides of her face. EKG showed atrial fibrillation Chest x-ray borderline cardiomegaly 09/21/2017 Patient underwent cardioversion successfully, she was started on flecainide cardiology team, and need monitorings 1 more day while she is on this antiarrhythmic drug after cardioversion Objective - Vital Signs Vital signs: Vital Signs Temp 98.3 F 09/21/17 16:07 Pulse 68 09/21/17 16:07 Resp 16 09/21/17 16:07 BP 128/83 09/21/17 16:07 Pulse Ox 93 L 09/21/17 16:07 Intake & Output 09/21/17 09/21/17 09/22/17 06:59 18:59 06:59 Intake Total 225 Balance 225 Intake: IV 225 Other: Voiding Method Toilet - Labs CBC & Chem 7: 09/20/17 13:00 09/20/17 13:00 Labs: Abnormal Lab Results - Last 24 Hours (Table) 09/20/17 Range/Units 13:00 Triglycerides 436 H (<150) mg/dL HDL Cholesterol 32 L (40-60) mg/dL Assessment and Plan Plan: Persistent atrial fibrillation. Symptomatic. Hypertension Osteoarthritis Plan: Patient status post successful cardioversion needs monitoring while she is started on flecainide
[2017-09-22] MEDS: ACETAMINOPHEN TAB 325 MG TAB PO PRN (02:51)
[2017-09-22 11:34] VITALS: RESP 18
[2017-09-22] MEDS: amLODIPine 5 MG TAB PO SCH (11:47)
[2017-09-22] MEDS: LEVOTHYROXINE 75 MCG TAB PO SCH (11:47)
[2017-09-22] MEDS: ASPIRIN 325 MG TAB PO SCH (11:47)
[2017-09-22] MEDS: APIXABAN 5 MG TAB PO SCH (11:47)
[2017-09-22] MEDS: LISINOPRIL-HCTZ 20-25 MG 1 EACH TAB PO SCH (11:48)
[2017-09-22] MEDS: METOPROLOL TARTRATE 25 MG TAB PO SCH (11:48)
[2017-09-22] MEDS: FLECAINIDE 50 MG TAB PO SCH (11:48)
[2017-09-22] MEDS: GABAPENTIN 300 MG CAP PO SCH (11:48)
[2017-09-22] MEDS: NITROGLYCERIN OINT 1 INCH/GM PACKET TOPICAL SCH (11:56)
[2017-09-22] MEDS: SODIUM CHLORIDE 0.9% 1,000 ML IV SCH (13:15)
[2017-09-22] MEDS: GABAPENTIN 100 MG CAP PO SCH (13:20)
[2017-09-22 13:28] LABS: Magnesium 1.8 mg/dL (1.6-2.3); Potassium 3.3 mmol/L (3.5-5.1)
[2017-09-22 15:52] VITALS: BP 137/77; PULSE 64; TEMP 98.6
[2017-09-22] MEDS ORDERED: POTASSIUM CHLORIDE ER 20 MEQ TAB.ER PO STA (17:27)
[2017-09-22] MEDS ORDERED: MAGNESIUM SULFATE-D5W PMX 1 GM in DEXTROSE/WATER 1 100ML.BAG IVPB ONE (18:00)
--- NOTE | 2017-09-22 18:58 | P.DS ---
Providers Date of admission: 09/22/17 15:46 Attending physician: Hakan Tierney Consults: 09/20/17 15:44 Consult Physician Urgent Consulting Provider: Ginny Aguilar Consult Reason/Comments: a mahesh, cp Do you want consulting provider notified?: Yes Primary care physician: [facility] Hospital Course: Patient is a 62-year-old female with a known history of atrial fibrillation on anticoagulation, hypertension and osteoarthritis came to the hospital due to irregular heartbeat. Patient is supposed to follow with cardiology for ablation /cardioversion this following Wednesday. Patient developed palpitations and dizziness yesterday and patient went to see her primary care physician Dr. alfaro. Recommended to come to ER. Patient does have some discomfort on the left side of her chest. This has been present for several weeks however is worse today. Patient has continued palpitations described as skipping which has been persistent for the past month or so. Patient does have paresthesias mostly on both sides of her face. EKG showed atrial fibrillation. Chest x-ray borderline cardiomegaly. Patient under went Cardiologic evaluation, and eventually she had a SHAHEEN on 09/21/2017 with shows no evidence of clot in the left atrial appendage. This is followed on 09/21/2017 with successful cardioversion. After that she was started on flecainide 50 mg by mouth twice a day by the pipe bowls paint trimmer. She was monitored overnight with no events. Cardiology cleared her for discharge with recommendation for follow-up in the office in 2 weeks. appointment was made for the pt and she agrees with its timing . pt is instructed to f/u with her pcp in one week and she agrees to call and make appointment with her pt was started on KCL 10 mEq daily as pt was noticed to be low to low-normal ( 3.3-3.7) from 08/14/2017, bed side nurse comfirmed to me that flecainide, prescription was sent to the pt pharmacy and pt informed. pt refused to take prescription for aspirin stating she is not supposed to take aspirin while on Eliquis as this increases her risk of bleeding. pt was instructed to f/u with her pcp and cardiology and she agrees. pt is found stable and can be discharged home however she needs f/u as outpt discharge exam general : AAOx3, no distress CVS: S1S2, no murmur Lung: B/L CTA, no wheezing Abd: soft, NT, ND, Positive bowel sounds Ext: no edema time spent more than 35 min Plan - Discharge Summary Discharge Rx Participant: No New Discharge Prescriptions: New Flecainide [Tambocor] 50 mg PO Q12HR #60 tab No Action Lisinopril-Hctz 20-25 mg [Zestoretic 20-25] 1 tab PO DAILY Levothyroxine Sodium [Levoxyl] 75 mcg PO DAILY Gabapentin [Neurontin] 100 mg PO DAILY@1200 Gabapentin [Neurontin] 300 mg PO BID Apixaban [Eliquis] 5 mg PO BID #60 tab Metoprolol Tartrate [Lopressor] 25 mg PO BID #60 tab amLODIPine [Norvasc] 5 mg PO DAILY Discharge Medication List Gabapentin [Neurontin] 100 mg PO DAILY@1200 08/14/17 [History] Levothyroxine Sodium [Levoxyl] 75 mcg PO DAILY 08/14/17 [History] Lisinopril-Hctz 20-25 mg [Zestoretic 20-25] 1 tab PO DAILY 08/14/17 [History] Gabapentin [Neurontin] 300 mg PO BID 08/15/17 [History] Apixaban [Eliquis] 5 mg PO BID #60 tab 08/18/17 [Rx] Metoprolol Tartrate [Lopressor] 25 mg PO BID #60 tab 08/18/17 [Rx] amLODIPine [Norvasc] 5 mg PO DAILY 09/16/17 [History] Flecainide [Tambocor] 50 mg PO Q12HR #60 tab 09/21/17 [Rx] Potassium Chloride ER [K-Dur 10] 10 meq PO DAILY #15 tab 09/22/17 [Rx] Follow up Appointment(s)/Referral(s): Carol Alfaro MD [STAFF PHYSICIAN] - 1-2 days Ginny Aguilar MD [STAFF PHYSICIAN] - 09/28/17 8:45 am (Please disregard the letter you will receive in the mail about rescheduling your appointment.) Patient Instructions/Handouts: Cardioversion (DC)
== END 2017-09-22 19:35 | disposition home or self-care (01) | DRG 310 ==
LOC: EC 12:19 → 3OBS 15:44 → OBSVTOIN 09-22 15:46
PROVIDERS: ADMIT Internal Medicine; ATTEND Internal Medicine
PROC: B245ZZ4 Ultrasonography of Left Heart, Transesophageal (ICD-10-PCS; principal; 2017-09-21 14:00)
PROC: 5A2204Z Restoration of Cardiac Rhythm, Single (ICD-10-PCS; principal; 2017-09-21 14:00)
DX: I48.1 Persistent atrial fibrillation (principal); E78.5 Hyperlipidemia, unspecified; I10 Essential (primary) hypertension; M19.90 Unspecified osteoarthritis, unspecified site; E07.9 Disorder of thyroid, unspecified; I69.998 Other sequelae following unspecified cerebrovascular disease; Z79.01 Long term (current) use of anticoagulants; Z79.899 Other long term (current) drug therapy; Z80.0 Family history of malignant neoplasm of digestive organs; Z80.49 Family history of malignant neoplasm of other genital organs; Z83.3 Family history of diabetes mellitus; Z88.0 Allergy status to penicillin
CPT/HCPCS: 36415; 71046; 80053; 80061; 82550; 82553; 83735; 83880; 84132; 84439; 84443; 84481; 84484; 85025; 85610; 85730; 92960; 93005; 93312; 93320; 93325; 99285

== ENCOUNTER → 2017-09-20 | Outpatient (CLI) | payer BC ==
--- NOTE | 2017-09-21 09:41 | MM ---
Reason for exam: screening (asymptomatic). Last mammogram was performed 4 years ago. History: Patient is postmenopausal. Physical Findings: A clinical breast exam by your physician is recommended on an annual basis and results should be correlated with mammographic findings. MG Screening Mammo w CAD Bilateral CC and MLO view(s) were taken. Prior study comparison: September 06, 2013, bilateral MG screening mammo w CAD. May 08, 2011, bilateral digital screening mammo w/CAD. There are scattered fibroglandular densities. Focal asymmetry inner right CC stable since 2009. No significant changes when compared with prior studies. ASSESSMENT: Benign, BI-RAD 2 RECOMMENDATION: Routine screening mammogram of both breasts in 1 year.
== END | disposition home or self-care (01) ==
LOC: RADMAMWWP 09:34
PROVIDERS: ATTEND Internal Medicine
DX: Z12.31 Encounter for screening mammogram for malignant neoplasm of breast (principal)
CPT/HCPCS: 77067

== ENCOUNTER → 2018-02-08 | Outpatient (CLI) | payer BC ==
[2018-02-08 17:40] LABS: Basophils # (A) 0.1 k/uL (0-0.2); Basophils % (A) 1 %; Eosinophils # (A) 0.1 k/uL (0-0.7); Eosinophils % (A) 1 %; HCT 43.3 % (34.0-46.0); HGB 14.4 gm/dL (11.4-16.0); Lymphocytes # (A) 2.9 k/uL (1.0-4.8); Lymphocytes % (A) 38 %; MCH 30.6 pg (25.0-35.0); MCHC 33.3 g/dL (31.0-37.0); MCV 91.8 fL (80.0-100.0); Mean Platelet Volume 8.6; Monocytes # (A) 0.3 k/uL (0-1.0); Monocytes % (A) 4 %; Neutrophils # (A) 4.1 k/uL (1.3-7.7); Neutrophils % (A) 55 %; Platelet Count 206 k/uL (150-450); RBC 4.72 m/uL (3.80-5.40); RDW 12.3 % (11.5-15.5); WBC 7.5 k/uL (3.8-10.6)
[2018-02-08 17:46] LABS: Anion Gap 8 mmol/L; Blood Urea Nitrogen 17 mg/dL (7-17); Carbon Dioxide 30 mmol/L (22-30); Chloride 102 mmol/L (98-107); Glucose 95 mg/dL (74-99); Potassium 3.5 mmol/L (3.5-5.1); Sodium 140 mmol/L (137-145)
== END | disposition home or self-care (01) ==
LOC: LABPAT 16:43
PROVIDERS: ATTEND Internal Medicine Cardiovascular Disease
DX: Z01.812 Encounter for preprocedural laboratory examination (principal); I48.1 Persistent atrial fibrillation; E78.00 Pure hypercholesterolemia, unspecified
CPT/HCPCS: 80051; 82565; 82947; 83735; 84520; 85025

== ENCOUNTER 2018-02-10 06:22 | Observation (INO) | payer BC ==
[2018-02-10] MEDS ORDERED: SODIUM CHLORIDE 0.9% 1,000 ML IV STA (06:50)
--- NOTE | 2018-02-10 06:53 | ED ---
SOB HPI - General Source: patient, RN notes reviewed, old records reviewed Mode of arrival: wheelchair Limitations: no limitations - History of Present Illness MD Complaint: shortness of breath, anxiety -: hour(s), days(s) Radiation: other (No chest pain) Severity scale (1-10): 3 Quality: other (No pain, mild shortness of breath) Consistency: constant Improves With: rest Worsens With: exertion Known History Of: other (A. fib with RVR) Associated Symptoms: denies other symptoms <Manolo Mccoy - Last Filed: 02/10/18 07:08> <Wei Fernandez - Last Filed: 02/10/18 08:56> - General Chief Complaint: Shortness of Breath Stated Complaint: Shortness of Breath, Palpitations Time Seen by Provider: 02/10/18 06:48 - History of Present Illness Initial Comments: This is a 62-year-old female the ER for evaluation. Patient resents today for evaluation regards to shortness of breath palpitations and inability to catch her breath especially with exertion. No sick contacts no recent travel history no fevers no cough no congestion. No recent change in medications. Patient recently was placed with Holter monitor or event monitor and was found to be in A. fib 100% of the time. Patient is scheduled for seconds cardiac ablation in the coming months. (Manolo Mccoy) - Related Data Home Medications Medication Instructions Recorded Confirmed Gabapentin [Neurontin] 100 mg PO DAILY@1200 08/14/17 02/10/18 Levothyroxine Sodium [Levoxyl] 75 mcg PO DAILY 08/14/17 02/10/18 Lisinopril-Hctz 20-25 mg 1 tab PO DAILY 08/14/17 02/10/18 [Zestoretic 20-25] Gabapentin [Neurontin] 300 mg PO BID 08/15/17 02/10/18 amLODIPine [Norvasc] 10 mg PO DAILY 02/10/18 02/10/18 Previous Rx's Medication Instructions Recorded Apixaban [Eliquis] 5 mg PO BID #60 tab 08/18/17 Metoprolol Tartrate [Lopressor] 25 mg PO BID #60 tab 08/18/17 Flecainide [Tambocor] 50 mg PO Q12HR #60 tab 09/21/17 Allergies Allergy/AdvReac Type Severity Reaction Status Date / Time Penicillins Allergy Rash/Hives Verified 02/10/18 07:10 Review of Systems ROS Other: All systems not noted in ROS Statement are negative. <Manolo Mccoy - Last Filed: 02/10/18 07:08> ROS Other: All systems not noted in ROS Statement are negative. <Wei Fernandez - Last Filed: 02/10/18 08:56> ROS Statement: Those systems with pertinent positive or pertinent negative responses have been documented in the HPI. Past Medical History Past Medical History: Atrial Fibrillation, Hypertension, Osteoarthritis (OA) Additional Past Medical History / Comment(s): See Dr Aguilar's H&P, passed fx lt arm-cated only, age 23 had a misscarriage(recieved blood at that time) History of Any Multi-Drug Resistant Organisms: None Reported Past Surgical History: No Surgical Hx Reported Additional Past Surgical History / Comment(s): laser eye surgery-cataracts; colonoscopy; SHAHEEN Past Anesthesia/Blood Transfusion Reactions: No Reported Reaction Additional Past Anesthesia/Blood Transfusion Reaction / Comment(s): pt stated at age 23 had a misscarriage- received blood transfusion0 no reaction. Past Psychological History: No Psychological Hx Reported Smoking Status: Never smoker Past Alcohol Use History: None Reported Past Drug Use History: None Reported - Past Family History Mother Family Medical History: Cancer, Diabetes Mellitus Additional Family Medical History / Comment(s): colon ca, uterine ca Father Family Medical History: No Reported History Sister(s) Family Medical History: Diabetes Mellitus <Manolo Mccoy - Last Filed: 02/10/18 07:08> General Exam Limitations: no limitations General appearance: alert, in no apparent distress Head exam: Present: atraumatic, normocephalic, normal inspection Eye exam: Present: normal appearance, PERRL, EOMI. Absent: scleral icterus, conjunctival injection, periorbital swelling ENT exam: Present: normal exam, mucous membranes moist Neck exam: Present: normal inspection. Absent: tenderness, meningismus, lymphadenopathy Respiratory exam: Present: normal lung sounds bilaterally. Absent: respiratory distress, wheezes, rales, rhonchi, stridor Cardiovascular Exam: Present: regular rate, irregular rhythm, normal heart sounds. Absent: systolic murmur, diastolic murmur, rubs, gallop, clicks GI/Abdominal exam: Present: soft, normal bowel sounds. Absent: distended, tenderness, guarding, rebound, rigid Extremities exam: Present: normal inspection, full ROM, normal capillary refill. Absent: tenderness, pedal edema, joint swelling, calf tenderness Back exam: Present: normal inspection Neurological exam: Present: alert, oriented X3, CN II-XII intact Psychiatric exam: Present: normal affect, normal mood Skin exam: Present: warm, dry, intact, normal color. Absent: rash <Manolo Mccoy - Last Filed: 02/10/18 07:08> Course <Manolo Mccoy - Last Filed: 02/10/18 07:08> <Wei Fernandez - Last Filed: 02/10/18 08:56> Vital Signs 02/10/18 06:23 Temperature 98.0 F Pulse Rate 64 Respiratory 16 Rate Blood Pressure 159/82 O2 Sat by Pulse 98 Oximetry - Reevaluation(s) Reevaluation #1: 02/10/18 07:10 Medical records reviewed (Manolo Mccoy) Medical Decision Making - Lab Data Result diagrams: 02/10/18 06:40 - EKG Data -: EKG Interpreted by Me (EKG shows A. fib rate of 74, QRS 90, QTc 441) <Manolo Mccoy - Last Filed: 02/10/18 07:08> - Lab Data Result diagrams: 02/10/18 06:40 02/10/18 06:40 - Radiology Data Radiology results: report reviewed, image reviewed <Wei Fernandez - Last Filed: 02/10/18 08:56> - Medical Decision Making The patient was endorsed me by Dr. Mccoy at our shift change pending lab work and x-rays. Patient still continues it demonstrated dyspnea. She has chronic atrial fibrillation. Elevated BNP. Will be admitted for evaluation by cardiology. (Wei Fernandez) - Lab Data Lab Results 02/10/18 02/10/18 02/10/18 Range/Units 06:40 06:40 06:40 WBC 6.7 (3.8-10.6) k/uL RBC 4.56 (3.80-5.40) m/uL Hgb 13.8 (11.4-16.0) gm/dL Hct 41.4 (34.0-46.0) % MCV 90.9 (80.0-100.0) fL MCH 30.3 (25.0-35.0) pg MCHC 33.4 (31.0-37.0) g/dL RDW 12.3 (11.5-15.5) % Plt Count 181 (150-450) k/uL Neutrophils % 60 % Lymphocytes % 31 % Monocytes % 5 % Eosinophils % 2 % Basophils % 1 % Neutrophils # 4.0 (1.3-7.7) k/uL Lymphocytes # 2.1 (1.0-4.8) k/uL Monocytes # 0.3 (0-1.0) k/uL Eosinophils # 0.1 (0-0.7) k/uL Basophils # 0.0 (0-0.2) k/uL PT (9.0-12.0) sec INR (<1.2) APTT (22.0-30.0) sec Sodium 139 (137-145) mmol/L Potassium 3.4 L (3.5-5.1) mmol/L Chloride 105 (98-107) mmol/L Carbon Dioxide 28 (22-30) mmol/L Anion Gap 6 mmol/L BUN 15 (7-17) mg/dL Creatinine 0.66 (0.52-1.04) mg/dL Est GFR (CKD-EPI)AfAm >90 (>60 ml/min/1.73 sqM) Est GFR (CKD-EPI)NonAf >90 (>60 ml/min/1.73 sqM) Glucose 99 (74-99) mg/dL Calcium 9.3 (8.4-10.2) mg/dL Magnesium 1.8 (1.6-2.3) mg/dL Total Bilirubin 1.2 (0.2-1.3) mg/dL AST 16 (14-36) U/L ALT 20 (9-52) U/L Alkaline Phosphatase 52 (38-126) U/L Total Creatine Kinase 34 (30-135) U/L CK-MB (CK-2) 0.3 (0.0-2.4) ng/mL CK-MB (CK-2) Rel Index 0.9 Troponin I <0.012 (0.000-0.034) ng/mL NT-Pro-B Natriuret Pep pg/mL Total Protein 7.2 (6.3-8.2) g/dL Albumin 3.9 (3.5-5.0) g/dL 02/10/18 02/10/18 Range/Units 06:40 06:40 WBC (3.8-10.6) k/uL RBC (3.80-5.40) m/uL Hgb (11.4-16.0) gm/dL Hct (34.0-46.0) % MCV (80.0-100.0) fL MCH (25.0-35.0) pg MCHC (31.0-37.0) g/dL RDW (11.5-15.5) % Plt Count (150-450) k/uL Neutrophils % % Lymphocytes % % Monocytes % % Eosinophils % % Basophils % % Neutrophils # (1.3-7.7) k/uL Lymphocytes # (1.0-4.8) k/uL Monocytes # (0-1.0) k/uL Eosinophils # (0-0.7) k/uL Basophils # (0-0.2) k/uL PT 10.7 (9.0-12.0) sec INR 1.1 (<1.2) APTT 24.9 (22.0-30.0) sec Sodium (137-145) mmol/L Potassium (3.5-5.1) mmol/L Chloride (98-107) mmol/L Carbon Dioxide (22-30) mmol/L Anion Gap mmol/L BUN (7-17) mg/dL Creatinine (0.52-1.04) mg/dL Est GFR (CKD-EPI)AfAm (>60 ml/min/1.73 sqM) Est GFR (CKD-EPI)NonAf (>60 ml/min/1.73 sqM) Glucose (74-99) mg/dL Calcium (8.4-10.2) mg/dL Magnesium (1.6-2.3) mg/dL Total Bilirubin (0.2-1.3) mg/dL AST (14-36) U/L ALT (9-52) U/L Alkaline Phosphatase (38-126) U/L Total Creatine Kinase (30-135) U/L CK-MB (CK-2) (0.0-2.4) ng/mL CK-MB (CK-2) Rel Index Troponin I (0.000-0.034) ng/mL NT-Pro-B Natriuret Pep 1030 pg/mL Total Protein (6.3-8.2) g/dL Albumin (3.5-5.0) g/dL Disposition <Manolo Mccoy - Last Filed: 02/10/18 07:08> <Wei Fernandez - Last Filed: 02/10/18 08:56> Clinical Impression: Congestive heart failure, Chronic atrial fibrillation Disposition: ADMITTED IP TO THIS HOSP Condition: Stable Referrals: Carol Curtis MD [Primary Care Provider] - 1-2 days
[2018-02-10 07:04] LABS: Basophils % (A) 1 %; Eosinophils # (A) 0.1 k/uL (0-0.7); Eosinophils % (A) 2 %; HCT 41.4 % (34.0-46.0); HGB 13.8 gm/dL (11.4-16.0); Lymphocytes # (A) 2.1 k/uL (1.0-4.8); Lymphocytes % (A) 31 %; MCH 30.3 pg (25.0-35.0); MCHC 33.4 g/dL (31.0-37.0); MCV 90.9 fL (80.0-100.0); Mean Platelet Volume 8.3; Monocytes # (A) 0.3 k/uL (0-1.0); Monocytes % (A) 5 %; Neutrophils % (A) 60 %; Platelet Count 181 k/uL (150-450); RBC 4.56 m/uL (3.80-5.40); RDW 12.3 % (11.5-15.5); WBC 6.7 k/uL (3.8-10.6)
[2018-02-10 07:13] LABS: INR 1.1 (<1.2); Partial Thromboplastin Time 24.9 sec (22.0-30.0); Prothrombin Time 10.7 sec (9.0-12.0)
[2018-02-10 07:16] LABS: ALT 20 U/L (9-52); AST 16 U/L (14-36); Albumin 3.9 g/dL (3.5-5.0); Alkaline Phosphatase 52 U/L (38-126); Anion Gap 6 mmol/L; Blood Urea Nitrogen 15 mg/dL (7-17); Calcium 9.3 mg/dL (8.4-10.2); Carbon Dioxide 28 mmol/L (22-30); Chloride 105 mmol/L (98-107); Glucose 99 mg/dL (74-99); Magnesium 1.8 mg/dL (1.6-2.3); Potassium 3.4 mmol/L (3.5-5.1); Sodium 139 mmol/L (137-145); Total Bilirubin 1.2 mg/dL (0.2-1.3); Total Protein 7.2 g/dL (6.3-8.2)
--- NOTE | 2018-02-10 07:23 | XR ---
EXAMINATION TYPE: XR chest 2V DATE OF EXAM: 02/10/2018 COMPARISON: 09/20/2014 with HISTORY: Shortness of breath TECHNIQUE: Frontal and lateral views of the chest are obtained. FINDINGS: Scattered senescent parenchymal changes noted. Hyperinflation compatible with COPD. No evidence for infiltrate. No evidence for atelectasis. Heart size is stable. Mediastinal structures are stable and grossly unremarkable. No evidence for hilar prominence. Degenerative changes dorsal spine. IMPRESSION: 1. No evidence for acute pulmonary disease.
[2018-02-10 07:43] LABS: Creatine Kinase 34 U/L (30-135)
[2018-02-10 07:56] LABS: Creatine Kinase MB 0.3 ng/mL (0.0-2.4); Troponin I <0.012 ng/mL (0.000-0.034)
[2018-02-10] MEDS ORDERED: amLODIPine 10 MG TAB PO STA (08:32)
[2018-02-10] MEDS ORDERED: LISINOPRIL-HCTZ 20-25 MG 1 EACH TAB PO SCH (09:00)
[2018-02-10] MEDS: APIXABAN 5 MG TAB PO SCH ×2 (09:16→20:26)
[2018-02-10] MEDS: LEVOTHYROXINE 75 MCG TAB PO SCH (09:17)
[2018-02-10] MEDS: GABAPENTIN 300 MG CAP PO SCH ×2 (09:17→20:26)
[2018-02-10] MEDS: FLECAINIDE 50 MG TAB PO SCH ×2 (09:17→20:26)
[2018-02-10] MEDS: METOPROLOL TARTRATE 25 MG TAB PO SCH ×2 (09:18→20:26)
[2018-02-10] MEDS: FUROSEMIDE 10 MG/ML 4 ML VIAL IV SCH ×2 (11:30→15:04)
[2018-02-10] MEDS: GABAPENTIN 100 MG CAP PO SCH (15:04)
--- NOTE | 2018-02-10 21:54 | P.HPIM ---
History of Present Illness H&P Date: 02/10/18 Chief Complaint: Shortness of breath and palpitations. Patient is a 62-year-old female with a known history of chronic atrial fibrillation with history of cardioversion and is scheduled for cardiac ablation on 02/28/2018 and hypothyroidism and hypertension came to ER with the complaints of shortness of breath and palpitations. Around 6 AM this morning patient had episode of shortness of breath and unable to catch her breath. Patient also felt heart racing of fast. Patient admits that she had physical exertion yesterday and was cleaning up her mom's house. Patient had cardioversion done in August and after follow-up with cardiology in 2 weeks she was again found to be in atrial fibrillation. Patient is supposed to get cardiac ablation next month. Denied any fever or chills. No complains of chest pain. No leg swelling. No orthopnea or PND. No cough or sputum production. No headache or dizziness or lightheadedness. EKG showed atrial fibrillation with rate controlld at 74. Chest x-ray showed no acute process BNP 1030 Review of Systems Constitutional: Patient denies any fever or chills . No generalized weakness or weight loss. Abdomen: Patient denied nausea vomiting and diarrhea and abdominal pain. Cardiovascular: Patient denies any chest pain or short of breath no palpitations. Respiratory: patient denied any cough is from production. No shortness of breath Neurologic: Patient denied any numbness or tingling headache. Musculoskeletal: Patient denies any complaints of joint swelling or deformity. Skin: Negative Psychiatric: Negative Endocrine: No heat or cold intolerance. No recent weight gain. Genitourinary: No dysuria or hematuria. All other 14 point ROS negative except the above Past Medical History Past Medical History: Atrial Fibrillation, Hypertension, Osteoarthritis (OA), Thyroid Disorder Additional Past Medical History / Comment(s): Afib with RVR-pt states she is scheduled with cardiac ablation with Dr. Magana on 02/28/18, arthritis especially in hips, hypothyroid, past L arm fracture/casted History of Any Multi-Drug Resistant Organisms: None Reported Past Surgical History: No Surgical Hx Reported Additional Past Surgical History / Comment(s): 08/2017 SHAHEEN/cardioversion, bilateral laser eye surgery for cataracts; colonoscopy-normal Past Anesthesia/Blood Transfusion Reactions: No Reported Reaction Additional Past Anesthesia/Blood Transfusion Reaction / Comment(s): pt stated at age 23 had a misscarriage- received blood transfusion0 no reaction. Smoking Status: Never smoker - Past Family History Mother Family Medical History: Cancer, Diabetes Mellitus Additional Family Medical History / Comment(s): colon ca, uterine ca Father Family Medical History: Liver Disease Sister(s) Family Medical History: Diabetes Mellitus Medications and Allergies Home Medications Medication Instructions Recorded Confirmed Type Gabapentin [Neurontin] 100 mg PO DAILY@1200 08/14/17 02/10/18 History Levothyroxine Sodium [Levoxyl] 75 mcg PO DAILY 08/14/17 02/10/18 History Lisinopril-Hctz 20-25 mg 1 tab PO DAILY 08/14/17 02/10/18 History [Zestoretic 20-25] Gabapentin [Neurontin] 300 mg PO BID 08/15/17 02/10/18 History Apixaban [Eliquis] 5 mg PO BID #60 tab 08/18/17 02/10/18 Rx Metoprolol Tartrate [Lopressor] 25 mg PO BID #60 tab 08/18/17 02/10/18 Rx Flecainide [Tambocor] 50 mg PO Q12HR #60 tab 09/21/17 02/10/18 Rx amLODIPine [Norvasc] 10 mg PO DAILY 02/10/18 02/10/18 History Allergies Allergy/AdvReac Type Severity Reaction Status Date / Time Penicillins Allergy Rash/Hives Verified 02/10/18 07:10 Physical Exam Vitals: Vital Signs Temp Pulse Resp BP Pulse Ox 02/10/18 08:30 70 18 137/87 98 02/10/18 06:23 98.0 F 64 16 159/82 98 Intake and Output 02/09/18 02/10/18 02/10/18 22:59 06:59 14:59 Other: Weight 82.554 kg PHYSICAL EXAMINATION: Patient is lying in the bed comfortably, no acute distress, awake alert and oriented.. HEENT: Normocephalic. Neck is supple. Pupils reactive. Nostrils clear. Oral cavity is moist. Ears reveal no drainage. Neck reveals no JVD, carotid bruits, or thyromegaly. CHEST EXAMINATION: Trachea is central. Symmetrical expansion. Lung goldman clear to auscultation and percussion. CARDIAC: Normal S1, S2 with no gallops. No murmurs . Irregularly irregular rhythm. ABDOMEN: Soft. Bowel sounds normal. No organomegaly. No abdominal bruits. Extremities: Trace edema. No clubbing or cyanosis Neurologically awake, alert, oriented x3 with well-coordinated movements. No focal deficits noted Skin: No rash or skin lesions. Psychiatric: Coperative. Nonsuicidal Musculoskeletal: No joint swelling or deformity. Normal range of motion. Results CBC & Chem 7: 02/10/18 06:40 02/10/18 06:40 Labs: Abnormal Lab Results - Last 24 Hours (Table) 02/10/18 Range/Units 06:40 Potassium 3.4 L (3.5-5.1) mmol/L Thrombosis Risk Factor Assmnt - Choose All That Apply Any of the Below Risk Factors Present?: Yes Each Factor Represents 1 point: Heart failure (<1month), Obesity (BMI >25) Other Risk Factors: Yes Each Risk Factor Represents 2 Points: Age 61-74 years Other congenital or acquired thrombophilia - If yes, enter type in comment: No Thrombosis Risk Factor Assessment Total Risk Factor Score: 4 Thrombosis Risk Factor Assessment Level: Moderate Risk Assessment and Plan Assessment: Chronic persistent atrial fibrillation. With history of SHAHEEN/cardioversion in August 2017. Scheduled for ablation on 02/28/2018. Shortness of breath and palpitations secondary to above. Unlikely CHF Hypertension controlled Osteoarthritis Hypothyroidism Plan: Patient will be continued on telemetry monitoring. Continue with home dose of metoprolol and flecainide. We will hold hydrochlorothiazide/lisinopril due to low blood pressure. Continue with anticoagulation. Will check TSH level. Continue the home medications and follow up closely. Cardiology was consulted. Further recommendations based on the clinical course. Time with Patient: Greater than 30
--- NOTE | 2018-02-11 00:32 | CONS ---
CONSULTATION Mrs. Cervantes is a 62-year-old female in the emergency room because she has been having a problem of shortness of breath. According to her, she did some heavy work a couple of days ago and she started feeling short of breath. This morning she woke up and she was having difficulty in breathing, palpitations, and so she came to the emergency room and the patient was admitted. This patient has a history of atrial fibrillation since July. In August patient underwent a cardioversion and she was put on flecainide. The patient was recently seen by Dr. Aguilar and 24 hour DCG revealed that the patient was in persistent atrial fibrillation. The patient flecainide was increased and she was scheduled for cardioversion in 1 week. The patient has a history of hypertension, hyperlipidemia. There is no history of prior myocardial infarction. REVIEW OF THE SYSTEM: Unremarkable. PAST HISTORY: History of any major surgeries. PHYSICAL EXAMINATION: At present reveals a 62-year-old female who is not in any respiratory distress. Heart rate is 70 to 80 per minute, blood pressure is 130/80 mmHg. HEENT examination is negative. Neck is supple. There is no increase in jugular venous pressure. Both the carotid pulses are felt. There is no bruit. Chest is symmetrical. Heart the PMI is not felt. First and second heart sounds are normal. There is no evidence of murmur. Heart rate is regular. LUNGS: Clear to auscultation and percussion. Abdomen is soft. Liver and spleen not enlarged. Bowel sounds are heard. EXTREMITIES: Peripheral pulsations are 2+. FINAL IMPRESSION: This patient is admitted with symptoms of shortness of breath and palpitations. Currently is in persistent atrial fibrillation. Her rate is controlled. There is no evidence of any overt congestive cardiac failure. I discussed the condition with the patient. We discussed with Dr. Aguilar and may consider to do cardioversion tomorrow in view that the patient is symptomatic. MMODL / IJN: [id number] /
[2018-02-11] MEDS: LEVOTHYROXINE 75 MCG TAB PO SCH (06:26)
[2018-02-11] MEDS ORDERED: POTASSIUM CHLORIDE ER 20 MEQ TAB.ER PO STA (07:07)
[2018-02-11] MEDS: APIXABAN 5 MG TAB PO SCH ×2 (07:09→20:18)
[2018-02-11] MEDS: GABAPENTIN 300 MG CAP PO SCH ×2 (07:09→20:18)
[2018-02-11] MEDS: FLECAINIDE 50 MG TAB PO SCH ×2 (07:09→20:18)
[2018-02-11] MEDS: METOPROLOL TARTRATE 25 MG TAB PO SCH (07:09)
[2018-02-11 07:40] LABS: Calcium 9.4 mg/dL (8.4-10.2); Potassium 3.2 mmol/L (3.5-5.1)
[2018-02-11] MEDS ORDERED: FLECAINIDE 50 MG TAB PO STA (08:14)
[2018-02-11] MEDS: amLODIPine 10 MG TAB PO SCH (08:31)
[2018-02-11] MEDS: POTASSIUM CHLORIDE ER 20 MEQ TAB.ER PO SCH ×3 (08:41→13:36)
[2018-02-11] MEDS ORDERED: LACTATED RINGERS 1,000 ML IV ONE ×2 (09:15)
[2018-02-11] MEDS ORDERED: PROPOFOL 10 MG/ML 20 ML VIAL IV ONE (10:04)
[2018-02-11] MEDS ORDERED: ePHEDrine SULFATE/0.9% NACL/PF 50 MG/5 ML SYRINGE IV ONE (10:04)
--- NOTE | 2018-02-11 10:34 | P.PCN ---
Date of Procedure: 02/11/18 Preoperative Diagnosis: Atrial fibrillation Postoperative Diagnosis: Conversion to sinus rhythm Procedure(s) Performed: Cardioversion, electrical Description of Procedure: This 62-year-old female is admitted to the hospital with complaints of chest pain, shortness of breath and persistent atrial fibrillation. Patient has history of persistent atrial fibrillation associated with this CHF and had a cardioversion previously. Patient was brought to the procedure after explaining the risks and benefits. Procedure: Patient was prepped and draped in the usual fashion. Anterior posterior paddles were applied. Department of anesthesia provided IV anesthesia with propofol. A 200 J sync shock was applied. Patient converted to sinus rhythm. Tolerated the procedure well. Slightly bradycardic. Impression: Successful cardioversion. Sinus bradycardia.
[2018-02-11] MEDS: SODIUM CHLORIDE 0.9% 1,000 ML IV SCH (11:13)
[2018-02-11] MEDS: GABAPENTIN 100 MG CAP PO SCH (11:13)
[2018-02-11] MEDS: ACETAMINOPHEN TAB 500 MG TAB PO PRN ×2 (13:36→21:45)
[2018-02-11 15:20] VITALS: BMI 25.6
--- NOTE | 2018-02-12 01:29 | P.PN ---
Subjective Progress Note Date: 02/11/18 Principal diagnosis: Chronic Atrial fibrillation Dizziness Patient is a 62-year-old female with a known history of chronic atrial fibrillation with history of cardioversion and is scheduled for cardiac ablation on 02/28/2018 and hypothyroidism and hypertension came to ER with the complaints of shortness of breath and palpitations. Around 6 AM this morning patient had episode of shortness of breath and unable to catch her breath. Patient also felt heart racing of fast. Patient admits that she had physical exertion yesterday and was cleaning up her mom's house. Patient had cardioversion done in August and after follow-up with cardiology in 2 weeks she was again found to be in atrial fibrillation. Patient is supposed to get cardiac ablation next month. Denied any fever or chills. No complains of chest pain. No leg swelling. No orthopnea or PND. No cough or sputum production. No headache or dizziness or lightheadedness. EKG showed atrial fibrillation with rate controlld at 74. Chest x-ray showed no acute process BNP 1030 02/11/2018 Patient denied any complaints of chest pain or shortness of breath. Patient underwent cardioversion today and is currently in sinus rhythm. Did improve symptomatically. No fever no chills. Cardiology is following. No other acute overnight issues. Current medications reviewed Objective - Vital Signs Vital signs: Vital Signs Temp 97.6 F 02/11/18 10:18 Pulse 53 L 02/11/18 11:05 Resp 18 02/11/18 11:05 BP 116/71 02/11/18 11:05 Pulse Ox 93 L 02/11/18 11:05 Intake & Output 02/10/18 02/11/18 02/11/18 18:59 06:59 18:59 Intake Total 240 240 750 Balance 240 240 750 Weight 78.7 kg Intake: IV 750 Oral 240 240 0 Other: # Voids 1 1 1 - Exam PHYSICAL EXAMINATION: Patient is lying in the bed comfortably, no acute distress, awake alert and oriented.. HEENT: Normocephalic. Neck is supple. Pupils reactive. Nostrils clear. Oral cavity is moist. Ears reveal no drainage. Neck reveals no JVD, carotid bruits, or thyromegaly. CHEST EXAMINATION: Trachea is central. Symmetrical expansion. Lung goldman clear to auscultation and percussion. CARDIAC: Normal S1, S2 with no gallops. No murmurs ABDOMEN: Soft. Bowel sounds normal. No organomegaly. No abdominal bruits. Extremities: reveal no edema. No clubbing or cyanosis Neurologically awake, alert, oriented x3 with well-coordinated movements. No focal deficits noted Skin: No rash or skin lesions. Psychiatric: Coperative. Nonsuicidal Musculoskeletal: No joint swelling or deformity. Normal range of motion. - Labs CBC & Chem 7: 02/10/18 06:40 02/11/18 06:25 Labs: Abnormal Lab Results - Last 24 Hours (Table) 02/11/18 Range/Units 06:25 Potassium 3.2 L (3.5-5.1) mmol/L Chloride 97 L (98-107) mmol/L Carbon Dioxide 32 H (22-30) mmol/L BUN 23 H (7-17) mg/dL Creatinine 1.10 H (0.52-1.04) mg/dL Assessment and Plan Assessment: Chronic persistent atrial fibrillation. With history of SHAHEEN/cardioversion in August 2017. Status post cardioversion on 02/11/2018 Shortness of breath and palpitations secondary to above. Unlikely CHF Hypertension controlled Osteoarthritis Hypothyroidism Plan: Patient will be continued on telemetry monitoring. Continue with home dose of metoprolol and flecainide. We will hold hydrochlorothiazide/lisinopril due to low blood pressure. Continue with anticoagulation. TSH level within normal limits. Replace potassium. Continue the home medications and follow up closely. Cardiology was consulted. Further recommendations based on the clinical course. Time with Patient: Greater than 30
[2018-02-12] MEDS: LEVOTHYROXINE 75 MCG TAB PO SCH (06:48)
[2018-02-12 08:40] VITALS: RESP 18
[2018-02-12] MEDS: amLODIPine 10 MG TAB PO SCH (08:40)
[2018-02-12] MEDS: APIXABAN 5 MG TAB PO SCH (08:41)
[2018-02-12] MEDS: FLECAINIDE 50 MG TAB PO SCH (08:41)
[2018-02-12] MEDS: GABAPENTIN 300 MG CAP PO SCH (08:45)
[2018-02-12] MEDS ORDERED: METOPROLOL TARTRATE 25 MG TAB PO SCH (09:00)
[2018-02-12] MEDS: SODIUM CHLORIDE 0.9% 1,000 ML IV SCH (11:26)
[2018-02-12] MEDS: GABAPENTIN 100 MG CAP PO SCH (12:14)
[2018-02-12] MEDS ORDERED: POTASSIUM CHLORIDE ER 20 MEQ TAB.ER PO STA (13:40)
[2018-02-12 15:07] VITALS: BP 132/77; PULSE 57; TEMP 98.1
--- NOTE | 2018-02-12 15:14 | P.PN ---
Subjective This is a pleasant 62-year-old female with past medical history significant for atrial fibrillation for which she underwent a cardioversion and was started on flecainide in August of this year. She recently saw Dr. Aguilar office and underwent 24-hour Holter monitoring which revealed persistent atrial fibrillation at which time her flecainide was increased and she was scheduled for repeat cardioversion.. She presented to the hospital symptoms of shortness of breath. She was successfully cardioverted yesterday. She denies symptoms of chest pain, shortness of breath, dizziness or palpitations. Blood pressure 132/77 heart rate 57 afebrile and taking oxygen saturation on room air. She continues to maintain sinus mechanism. Currently maintained on amlodipine 10 mg daily, Eliquis 5 mg twice a day, Fosamax 50 mg twice a day and Lopressor 25 mg daily. GENERAL: Well-appearing, well-nourished and in no acute distress. NECK: Supple without JVD or thyromegaly. LUNGS: Breath sounds clear to auscultation bilaterally. Respiration equal and unlabored. No wheezes, rales or rhonchi. HEART: Regular rate and rhythm without murmurs, rubs or gallops. S1 and S2 heard. EXTREMITIES: Normal range of motion, no edema. No clubbing or cyanosis. Peripheral pulses intact. ASSESSMENT Paroxysmal atrial fibrillation on long-term anticoagulation, recent Holter monitor revealed she was a persistent atrial fibrillation. She underwent successful cardioversion yesterday. PLAN Hemodynamically stable. We will increase her flecainide to 100 mg twice a day and decrease the Lopressor to 12.5 mg daily. Appropriate for discharge from a cardiac perspective, follow-up with Dr. Aguilar in one week. Nurse Practitioner note has been reviewed, I agree with a documented findings and plan of care. Patient was seen and examined. Objective - Vital Signs Vital signs: Vital Signs Temp 98.1 F 02/12/18 12:00 Pulse 57 L 02/12/18 12:00 Resp 18 02/12/18 12:00 BP 132/77 02/12/18 12:00 Pulse Ox 98 02/12/18 12:00 Intake & Output 02/11/18 02/12/18 02/12/18 18:59 06:59 18:59 Intake Total 640 360 Balance 640 360 Weight 78.7 kg 81.1 kg Intake: IV 400 Oral 240 360 Other: # Voids 1 1 1 - Labs CBC & Chem 7: 02/10/18 06:40 02/11/18 06:25
[2018-02-12] MEDS ORDERED: FLECAINIDE 50 MG TAB PO SCH (21:00)
[2018-02-13] MEDS ORDERED: METOPROLOL TARTRATE 12.5 MG TAB PO SCH (09:00)
== END 2018-02-12 16:30 | disposition home or self-care (01) ==
LOC: EC 06:22 → 3SCARD 09:01
PROVIDERS: ADMIT Internal Medicine; ATTEND Internal Medicine
DX: I48.1 Persistent atrial fibrillation (principal); I50.9 Heart failure, unspecified; I48.2 Chronic atrial fibrillation; E03.9 Hypothyroidism, unspecified; E78.5 Hyperlipidemia, unspecified; Z68.26 Body mass index [BMI] 26.0-26.9, adult; E66.9 Obesity, unspecified; F41.9 Anxiety disorder, unspecified; M16.0 Bilateral primary osteoarthritis of hip; I11.0 Hypertensive heart disease with heart failure; Z79.01 Long term (current) use of anticoagulants; Z79.890 Hormone replacement therapy; Z79.83 Long term (current) use of bisphosphonates; Z79.899 Other long term (current) drug therapy; Z80.0 Family history of malignant neoplasm of digestive organs; Z80.49 Family history of malignant neoplasm of other genital organs; Z83.3 Family history of diabetes mellitus; Z98.42 Cataract extraction status, left eye; Z98.41 Cataract extraction status, right eye
CPT/HCPCS: 96376; 96361; 96374; 99285; 36415; 93005; 92960; 83880; 80053; 80048; 84443; 82550; 82553; 83735; 84484; 85025; 85610; 85730; 71046; G0378 ×3; J1940; J2704

== ENCOUNTER 2018-03-03 07:06 | Observation (INO) | payer MEDICARE, BC ==
[2018-03-03] MEDS ORDERED: SODIUM CHLORIDE 0.9% 500 ML 500 ML IV STA (07:33)
--- NOTE | 2018-03-03 07:41 | ED ---
General Adult HPI - General Chief complaint: Arrhythmia/Palpitations Stated complaint: Weakness, A Fib Time Seen by Provider: 03/03/18 07:10 Source: patient, RN notes reviewed Mode of arrival: wheelchair Limitations: no limitations - History of Present Illness Initial comments: This is a 62-year-old female who presents to the emergency department complaining that she thinks her heart is back in A. fib. Patient states she's had 2 ablations but to 3 days ago she started feeling her heart racing again. Patient states she sat up with cardiology appointment but she continues to be very short of breath feels weaker so she decided come emergency department today. Patient denies any chest pain. Patient denies any short of breath while laying here. Patient denies any recent fever chills or cough. Patient states she did not take her morning medications yet. Patient denies any headache patient denies numbness weakness. Patient denies lightheadedness dizziness or near syncopal episode. Patient denies any abdominal pain patient denies nausea vomiting diarrhea - Related Data Home Medications Medication Instructions Recorded Confirmed Gabapentin [Neurontin] 100 mg PO DAILY@1200 08/14/17 03/03/18 Levothyroxine Sodium [Levoxyl] 75 mcg PO DAILY 08/14/17 03/03/18 Gabapentin [Neurontin] 300 mg PO BID 08/15/17 03/03/18 Flecainide Acetate [Tambocor] 100 mg PO Q12HR 03/03/18 03/03/18 Previous Rx's Medication Instructions Recorded Apixaban [Eliquis] 5 mg PO BID #60 tab 08/18/17 Lisinopril [Zestril] 10 mg PO DAILY #30 tab 02/12/18 Metoprolol Tartrate [Lopressor] 12.5 mg PO DAILY #30 tab 02/12/18 Allergies Allergy/AdvReac Type Severity Reaction Status Date / Time Penicillins Allergy Rash/Hives Verified 03/03/18 08:00 Review of Systems ROS Statement: Those systems with pertinent positive or pertinent negative responses have been documented in the HPI. ROS Other: All systems not noted in ROS Statement are negative. Past Medical History Past Medical History: Atrial Fibrillation, Hypertension, Osteoarthritis (OA), Thyroid Disorder Additional Past Medical History / Comment(s): Afib with RVR, arthritis especially in hips, hypothyroid, past L arm fracture/casted History of Any Multi-Drug Resistant Organisms: None Reported Past Surgical History: No Surgical Hx Reported Additional Past Surgical History / Comment(s): 08/2017 SHAHEEN/cardioversion, bilateral laser eye surgery for cataracts; colonoscopy-normal Past Anesthesia/Blood Transfusion Reactions: No Reported Reaction Additional Past Anesthesia/Blood Transfusion Reaction / Comment(s): pt stated at age 23 had a misscarriage- received blood transfusion0 no reaction. Past Psychological History: No Psychological Hx Reported Smoking Status: Never smoker Past Drug Use History: None Reported - Past Family History Mother Family Medical History: Cancer, Diabetes Mellitus Additional Family Medical History / Comment(s): colon ca, uterine ca Father Family Medical History: Liver Disease Sister(s) Family Medical History: Diabetes Mellitus General Exam - General Exam Comments Initial Comments: GENERAL: Patient is well-developed and well-nourished. Patient is nontoxic and well- hydrated and is in no acute distress. ENT: Neck is soft and supple. No significant lymphadenopathy is noted. Oropharynx is clear. Moist mucous membranes. Neck has full range of motion without eliciting any pain. EYES: The sclera were anicteric and conjunctiva were pink and moist. Extraocular movements were intact and pupils were equal round and reactive to light. Eyelids were unremarkable. PULMONARY: Unlabored respirations. Good breath sounds bilaterally. No audible rales rhonchi or wheezing was noted. CARDIOVASCULAR: Irregular heartbeat at about 100 beats a minute ABDOMEN: Soft and nontender with normal bowel sounds. No palpable organomegaly was noted. There is no palpable pulsatile mass. SKIN: Skin is clear with no lesions or rashes and otherwise unremarkable. NEUROLOGIC: Patient is alert and oriented x3. Cranial nerves II through XII are grossly intact. Motor and sensory are also intact. Normal speech, volume and content. Symmetrical smile. MUSCULOSKELETAL: Normal extremities with adequate strength and full range of motion. No lower extremity swelling or edema. No calf tenderness. LYMPHATICS: No significant lymphadenopathy is noted PSYCHIATRIC: Normal psychiatric evaluation. Limitations: no limitations Course Vital Signs 03/03/18 03/03/18 03/03/18 07:11 08:30 09:00 Temperature 98.1 F Pulse Rate 113 H 74 70 Respiratory 18 19 14 Rate Blood Pressure 161/117 169/116 166/118 O2 Sat by Pulse 95 98 98 Oximetry Medical Decision Making - Medical Decision Making EKG shows atrial fibrillation at 100 bpm QRS is 110 QT interval 366 QTC is 472. Patient's EKG shows no ST segment elevation or depression or T wave abnormalities are noted Chest x-ray shows no acute abnormality. Dr. Aguilar wanted the patient admitted so I admitted the patient and consult cardiology. - Lab Data Result diagrams: 03/03/18 07:29 03/03/18 07:29 Lab Results 03/03/18 03/03/18 03/03/18 Range/Units 07:29 07:29 07:29 WBC 5.4 (3.8-10.6) k/uL RBC 4.63 (3.80-5.40) m/uL Hgb 14.3 (11.4-16.0) gm/dL Hct 42.5 (34.0-46.0) % MCV 91.8 (80.0-100.0) fL MCH 31.0 (25.0-35.0) pg MCHC 33.7 (31.0-37.0) g/dL RDW 12.4 (11.5-15.5) % Plt Count 194 (150-450) k/uL Neutrophils % 64 % Lymphocytes % 29 % Monocytes % 5 % Eosinophils % 1 % Basophils % 1 % Neutrophils # 3.5 (1.3-7.7) k/uL Lymphocytes # 1.6 (1.0-4.8) k/uL Monocytes # 0.3 (0-1.0) k/uL Eosinophils # 0.1 (0-0.7) k/uL Basophils # 0.0 (0-0.2) k/uL PT (9.0-12.0) sec INR (<1.2) APTT (22.0-30.0) sec Sodium 143 (137-145) mmol/L Potassium 4.1 (3.5-5.1) mmol/L Chloride 108 H (98-107) mmol/L Carbon Dioxide 28 (22-30) mmol/L Anion Gap 7 mmol/L BUN 10 (7-17) mg/dL Creatinine 0.75 (0.52-1.04) mg/dL Est GFR (CKD-EPI)AfAm >90 (>60 ml/min/1.73 sqM) Est GFR (CKD-EPI)NonAf 85 (>60 ml/min/1.73 sqM) Glucose 105 H (74-99) mg/dL Calcium 9.1 (8.4-10.2) mg/dL Magnesium 2.1 (1.6-2.3) mg/dL Total Bilirubin 1.0 (0.2-1.3) mg/dL AST 16 (14-36) U/L ALT 24 (9-52) U/L Alkaline Phosphatase 59 (38-126) U/L Total Creatine Kinase 35 (30-135) U/L CK-MB (CK-2) 0.4 (0.0-2.4) ng/mL CK-MB (CK-2) Rel Index 1.1 Troponin I <0.012 (0.000-0.034) ng/mL Total Protein 7.2 (6.3-8.2) g/dL Albumin 3.8 (3.5-5.0) g/dL 03/03/18 Range/Units 07:29 WBC (3.8-10.6) k/uL RBC (3.80-5.40) m/uL Hgb (11.4-16.0) gm/dL Hct (34.0-46.0) % MCV (80.0-100.0) fL MCH (25.0-35.0) pg MCHC (31.0-37.0) g/dL RDW (11.5-15.5) % Plt Count (150-450) k/uL Neutrophils % % Lymphocytes % % Monocytes % % Eosinophils % % Basophils % % Neutrophils # (1.3-7.7) k/uL Lymphocytes # (1.0-4.8) k/uL Monocytes # (0-1.0) k/uL Eosinophils # (0-0.7) k/uL Basophils # (0-0.2) k/uL PT 10.2 (9.0-12.0) sec INR 0.9 (<1.2) APTT 25.1 (22.0-30.0) sec Sodium (137-145) mmol/L Potassium (3.5-5.1) mmol/L Chloride (98-107) mmol/L Carbon Dioxide (22-30) mmol/L Anion Gap mmol/L BUN (7-17) mg/dL Creatinine (0.52-1.04) mg/dL Est GFR (CKD-EPI)AfAm (>60 ml/min/1.73 sqM) Est GFR (CKD-EPI)NonAf (>60 ml/min/1.73 sqM) Glucose (74-99) mg/dL Calcium (8.4-10.2) mg/dL Magnesium (1.6-2.3) mg/dL Total Bilirubin (0.2-1.3) mg/dL AST (14-36) U/L ALT (9-52) U/L Alkaline Phosphatase (38-126) U/L Total Creatine Kinase (30-135) U/L CK-MB (CK-2) (0.0-2.4) ng/mL CK-MB (CK-2) Rel Index Troponin I (0.000-0.034) ng/mL Total Protein (6.3-8.2) g/dL Albumin (3.5-5.0) g/dL Disposition Clinical Impression: Atrial fibrillation, Dyspnea Disposition: ADMITTED IP TO THIS HOSP Referrals: Carol Curtis MD [Primary Care Provider] - 1-2 days Time of Disposition: 10:13
[2018-03-03 08:03] LABS: Basophils % (A) 1 %; Eosinophils # (A) 0.1 k/uL (0-0.7); Eosinophils % (A) 1 %; HCT 42.5 % (34.0-46.0); HGB 14.3 gm/dL (11.4-16.0); Lymphocytes # (A) 1.6 k/uL (1.0-4.8); Lymphocytes % (A) 29 %; MCHC 33.7 g/dL (31.0-37.0); MCV 91.8 fL (80.0-100.0); Mean Platelet Volume 8.4; Monocytes # (A) 0.3 k/uL (0-1.0); Monocytes % (A) 5 %; Neutrophils # (A) 3.5 k/uL (1.3-7.7); Neutrophils % (A) 64 %; Platelet Count 194 k/uL (150-450); RBC 4.63 m/uL (3.80-5.40); RDW 12.4 % (11.5-15.5); WBC 5.4 k/uL (3.8-10.6)
[2018-03-03 08:16] LABS: ALT 24 U/L (9-52); AST 16 U/L (14-36); Albumin 3.8 g/dL (3.5-5.0); Alkaline Phosphatase 59 U/L (38-126); Anion Gap 7 mmol/L; Blood Urea Nitrogen 10 mg/dL (7-17); Calcium 9.1 mg/dL (8.4-10.2); Carbon Dioxide 28 mmol/L (22-30); Chloride 108 mmol/L (98-107); Glucose 105 mg/dL (74-99); INR 0.9 (<1.2); Magnesium 2.1 mg/dL (1.6-2.3); Partial Thromboplastin Time 25.1 sec (22.0-30.0); Potassium 4.1 mmol/L (3.5-5.1); Prothrombin Time 10.2 sec (9.0-12.0); Sodium 143 mmol/L (137-145); Total Protein 7.2 g/dL (6.3-8.2)
--- NOTE | 2018-03-03 08:22 | XR ---
EXAMINATION TYPE: XR chest 2V DATE OF EXAM: 03/03/2018 COMPARISON: 02/10/2018 HISTORY: Chest pain TECHNIQUE: Frontal and lateral views of the chest are obtained. FINDINGS: Platelike left lower lung subsegmental atelectasis is chronic. There is no focal air space opacity, pleural effusion, or pneumothorax seen. The cardiac silhouette size is upper limits of norm al. The osseous structures are intact. Osseous structures appear mildly demineralized. IMPRESSION: No acute cardiopulmonary process.
[2018-03-03 08:42] LABS: Creatine Kinase 35 U/L (30-135)
[2018-03-03 08:55] LABS: Creatine Kinase MB 0.4 ng/mL (0.0-2.4); Troponin I <0.012 ng/mL (0.000-0.034)
[2018-03-03] MEDS ORDERED: NITROGLYCERIN SL TABS 0.4 MG TAB SUBLINGUAL PRN (10:14)
[2018-03-03] MEDS: METOPROLOL TARTRATE 12.5 MG TAB PO SCH ×2 (12:32→20:00)
[2018-03-03] MEDS: NITROGLYCERIN OINT 1 INCH/GM PACKET TOPICAL SCH ×3 (12:32→23:30)
--- NOTE | 2018-03-03 12:54 | P.HPIM ---
History of Present Illness 62-year-old female who presents to the emergency department complaining that she thinks her heart is back in A. fib. Patient states she's had 2 ablations but to 3 days ago she started feeling her heart racing again. Patient states she sat up with cardiology appointment but she continues to be very short of breath feels weaker so she decided come emergency department today. Patient denies any chest pain. Patient denies any short of breath while laying here. Patient denies any recent fever chills or cough. Patient states she did not take her morning medications yet. Patient denies any headache patient denies numbness weakness. Patient denies lightheadedness dizziness or near syncopal episode. Patient denies any abdominal pain patient denies nausea vomiting diarrhea. She denied any orthopnea proximal nocturnal dyspnea chest x-ray did not show any pneumonic process. Patient is being admitted for evaluation by journeyman electrician of believe patient is on anticoagulation with Apixiban. Review of Systems REVIEW OF SYSTEMS: CONSTITUTIONAL: No fever, no malaise, no fatigue. HEENT: No recent visual problems or hearing problems. Denied any sore throat. CARDIOVASCULAR: No chest pain, orthopnea, PND, no palpitations, no syncope. PULMONARY: no cough, no hemoptysis. GASTROINTESTINAL: No diarrhea, no nausea, no vomiting, no abdominal pain. Normoactive bowel sounds. NEUROLOGICAL: No headaches, no weakness, no numbness. HEMATOLOGICAL: Denies any bleeding or petechiae. GENITOURINARY: Denies any burning micturition, frequency, or urgency. MUSCULOSKELETAL/RHEUMATOLOGICAL: Denies any joint pain, swelling, or any muscle pain. ENDOCRINE: Denies any polyuria or polydipsia. The rest of the 14-point review of systems is negative. Past Medical History Past Medical History: Atrial Fibrillation, Hypertension, Osteoarthritis (OA), Thyroid Disorder Additional Past Medical History / Comment(s): Afib with RVR, arthritis especially in hips, hypothyroid, past L arm fracture/casted History of Any Multi-Drug Resistant Organisms: None Reported Past Surgical History: No Surgical Hx Reported Additional Past Surgical History / Comment(s): 08/2017 SHAHEEN/cardioversion, bilateral laser eye surgery for cataracts; colonoscopy-normal Past Anesthesia/Blood Transfusion Reactions: No Reported Reaction Additional Past Anesthesia/Blood Transfusion Reaction / Comment(s): pt stated at age 23 had a misscarriage- received blood transfusion0 no reaction. Past Psychological History: No Psychological Hx Reported Smoking Status: Never smoker Past Drug Use History: None Reported - Past Family History Mother Family Medical History: Cancer, Diabetes Mellitus Additional Family Medical History / Comment(s): colon ca, uterine ca Father Family Medical History: Liver Disease Sister(s) Family Medical History: Diabetes Mellitus Medications and Allergies Home Medications Medication Instructions Recorded Confirmed Type Gabapentin [Neurontin] 100 mg PO DAILY@1200 08/14/17 03/03/18 History Levothyroxine Sodium [Levoxyl] 75 mcg PO DAILY 08/14/17 03/03/18 History Gabapentin [Neurontin] 300 mg PO BID 08/15/17 03/03/18 History Apixaban [Eliquis] 5 mg PO BID #60 tab 08/18/17 03/03/18 Rx Lisinopril [Zestril] 10 mg PO DAILY #30 tab 02/12/18 03/03/18 Rx Metoprolol Tartrate [Lopressor] 12.5 mg PO DAILY #30 tab 02/12/18 03/03/18 Rx Flecainide Acetate [Tambocor] 100 mg PO Q12HR 03/03/18 03/03/18 History Allergies Allergy/AdvReac Type Severity Reaction Status Date / Time Penicillins Allergy Rash/Hives Verified 03/03/18 08:00 Physical Exam Vitals: Vital Signs Temp Pulse Resp BP Pulse Ox 03/03/18 10:52 98.3 F 73 18 142/103 97 03/03/18 09:00 70 14 166/118 98 03/03/18 08:30 74 19 169/116 98 03/03/18 07:11 98.1 F 113 H 18 161/117 95 Intake and Output 03/02/18 03/03/18 03/03/18 22:59 06:59 14:59 Other: Weight 81.647 kg PHYSICAL EXAMINATION: GENERAL: The patient is alert and oriented x3, not in any acute distress. Well developed, well nourished. HEENT: Pupils are round and equally reacting to light. EOMI. No scleral icterus. No conjunctival pallor. Normocephalic, atraumatic. No pharyngeal erythema. No thyromegaly. CARDIOVASCULAR: S1 and S2 present. No murmurs, rubs, or gallops. PULMONARY: Chest is clear to auscultation, no wheezing or crackles. ABDOMEN: Soft, nontender, nondistended, normoactive bowel sounds. No palpable organomegaly. MUSCULOSKELETAL: No joint swelling or deformity. EXTREMITIES: No cyanosis, clubbing, or pedal edema. NEUROLOGICAL: Gross neurological examination did not reveal any focal deficits. SKIN: No rashes. Results CBC & Chem 7: 03/03/18 07:29 03/03/18 07:29 Labs: Abnormal Lab Results - Last 24 Hours (Table) 03/03/18 Range/Units 07:29 Chloride 108 H (98-107) mmol/L Glucose 105 H (74-99) mg/dL Assessment and Plan Plan: -Shortness of breath: Most probably related to atrial fibrillation patient heart rate fluctuates quite a bit in spite of her heart rate being under control right now Atrial fibrillation: Presently rate controlled continue with anticoagulation patient will be resumed on eliquis,flecnaide and beta yessi -Hypothyroidism will obtain TSH and resume levothyroxine -Hypertension -Osteoarthritis
[2018-03-03 14:11] LABS: Creatine Kinase 32 U/L (30-135)
[2018-03-03 14:24] LABS: Creatine Kinase MB 0.3 ng/mL (0.0-2.4); Troponin I <0.012 ng/mL (0.000-0.034)
[2018-03-03 14:30] LABS: T4, Free (Free Thyroxine) 1.62 ng/dL (0.78-2.19)
[2018-03-03] MEDS ORDERED: DEXTROSE 5% IN WATER 100 ML with AMIODARONE 150 MG IV ONE (15:40)
[2018-03-03] MEDS: AMIODARONE 450 MG in DEXTROSE 5% IN WATER 250 ML IV SCH ×4 (17:38→23:30)
[2018-03-03] MEDS: SODIUM CHLORIDE 0.9% 1,000 ML IV SCH (17:38)
--- NOTE | 2018-03-03 18:28 | P.CRDCN ---
History of Present Illness Consult date: 03/03/18 History of present illness: This is a 62-year-old female with history of persistent atrial fibrillation and episodes of CHF was recently admitted to the hospital with a bout of atrial fibrillation. Patient had a cardioversion and was sent home on flecainide 100 mg by mouth twice a day. Patient is now came back to the emergency room with complaints of palpitation and shortness of breath. She was found to be [place] fibrillation again with moderately rapid ventricular response. Patient is being admitted to the hospital. She denied any chest pain. No dizziness or syncope. Patient is going to be started on IV amiodarone and will have cardioversion tomorrow. Subsequently we'll continue with amiodarone and see if he can maintain sinus rhythm. If not, patient will be constricted for ablation Review of Systems As per the chart Past Medical History Past Medical History: Atrial Fibrillation, Hypertension, Osteoarthritis (OA), Thyroid Disorder Additional Past Medical History / Comment(s): Afib with RVR, arthritis especially in hips, hypothyroid, past L arm fracture/casted History of Any Multi-Drug Resistant Organisms: None Reported Past Surgical History: No Surgical Hx Reported Additional Past Surgical History / Comment(s): 08/2017 SHAHEEN/cardioversion, bilateral laser eye surgery for cataracts; colonoscopy-normal Past Anesthesia/Blood Transfusion Reactions: No Reported Reaction Additional Past Anesthesia/Blood Transfusion Reaction / Comment(s): pt stated at age 23 had a misscarriage- received blood transfusion0 no reaction. Past Psychological History: No Psychological Hx Reported Smoking Status: Never smoker Past Drug Use History: None Reported - Past Family History Mother Family Medical History: Cancer, Diabetes Mellitus Additional Family Medical History / Comment(s): colon ca, uterine ca Father Family Medical History: Liver Disease Sister(s) Family Medical History: Diabetes Mellitus Medications and Allergies Home Medications Medication Instructions Recorded Confirmed Type Gabapentin [Neurontin] 100 mg PO DAILY@1200 08/14/17 03/03/18 History Levothyroxine Sodium [Levoxyl] 75 mcg PO DAILY 08/14/17 03/03/18 History Gabapentin [Neurontin] 300 mg PO BID 08/15/17 03/03/18 History Apixaban [Eliquis] 5 mg PO BID #60 tab 08/18/17 03/03/18 Rx Lisinopril [Zestril] 10 mg PO DAILY #30 tab 02/12/18 03/03/18 Rx Metoprolol Tartrate [Lopressor] 12.5 mg PO DAILY #30 tab 02/12/18 03/03/18 Rx Flecainide Acetate [Tambocor] 100 mg PO Q12HR 03/03/18 03/03/18 History Allergies Allergy/AdvReac Type Severity Reaction Status Date / Time Penicillins Allergy Rash/Hives Verified 03/03/18 08:00 Physical Exam Vitals: Vital Signs Temp Pulse Resp BP Pulse Ox 03/03/18 10:52 98.3 F 73 18 142/103 97 03/03/18 09:00 70 14 166/118 98 03/03/18 08:30 74 19 169/116 98 03/03/18 07:11 98.1 F 113 H 18 161/117 95 Intake and Output 03/03/18 03/03/18 03/03/18 06:59 14:59 22:59 Other: Weight 81.647 kg GENERAL EXAM: Patient is alert and oriented and doesn't appear to be in any acute distress HEENT: Normocephalic. Normal reaction of pupils, equal size, normal range of extraocular motion. No erythema or exudates in the throat. NECK: No masses, no nuchal rigidity. CHEST: No chest wall deformity. LUNGS: Equal air entry with no crackles or wheeze. HEART: S1 and S2 normal with no audible mumurs or gallops. Regular rhythm, femorals equal on both sides.. ABDOMEN: No hepatosplenomegaly, normal bowel sounds, no guarding or rigidity. SKIN: No rashes CENTRAL NERVOUS SYSTEM: No focal deficits. EXTREMITIES: No cyanosis, clubbing or edema. Results 03/03/18 07:29 03/03/18 07:29 Cardiac Enzymes 03/03/18 03/03/18 03/03/18 Range/Units 07:29 07:29 13:27 AST 16 (14-36) U/L CK-MB (CK-2) 0.4 0.3 (0.0-2.4) ng/mL Troponin I <0.012 <0.012 (0.000-0.034) ng/mL Coagulation 03/03/18 Range/Units 07:29 PT 10.2 (9.0-12.0) sec APTT 25.1 (22.0-30.0) sec CBC 03/03/18 Range/Units 07:29 WBC 5.4 (3.8-10.6) k/uL RBC 4.63 (3.80-5.40) m/uL Hgb 14.3 (11.4-16.0) gm/dL Hct 42.5 (34.0-46.0) % Plt Count 194 (150-450) k/uL Comprehensive Metabolic Panel 03/03/18 Range/Units 07:29 Sodium 143 (137-145) mmol/L Potassium 4.1 (3.5-5.1) mmol/L Chloride 108 H (98-107) mmol/L Carbon Dioxide 28 (22-30) mmol/L BUN 10 (7-17) mg/dL Creatinine 0.75 (0.52-1.04) mg/dL Glucose 105 H (74-99) mg/dL Calcium 9.1 (8.4-10.2) mg/dL AST 16 (14-36) U/L ALT 24 (9-52) U/L Alkaline Phosphatase 59 (38-126) U/L Total Protein 7.2 (6.3-8.2) g/dL Albumin 3.8 (3.5-5.0) g/dL Current Medications Generic Name Dose Route Start Last Admin Trade Name Freq PRN Reason Stop Dose Admin Apixaban 5 mg 03/03/18 21:00 Eliquis PO BID [facility] Aspirin 81 mg 03/04/18 09:00 Aspirin PO DAILY [facility] Gabapentin 100 mg 03/04/18 12:00 Neurontin PO DAILY@1200 [facility] Gabapentin 300 mg 03/03/18 21:00 Neurontin PO BID [facility] Amiodarone HCl 450 mg/ 259 mls @ 34.53 mls/hr 03/03/18 15:45 03/03/18 17:38 Dextrose/Water IV 03/04/18 15:40 1 mg/min .Q7H31M ANMOL 34.53 mls/hr Administration Protocol 1 MG/MIN Sodium Chloride 1,000 mls @ 20 mls/hr 03/03/18 15:45 03/03/18 17:38 Saline 0.9% IV 20 mls/hr .Q24H ANMOL Administration Levothyroxine Sodium 75 mcg 03/04/18 09:00 Synthroid PO DAILY@0630 [facility] Lisinopril 10 mg 03/04/18 09:00 Zestril PO DAILY [facility] Metoprolol Tartrate 12.5 mg 03/03/18 12:15 03/03/18 12:32 Lopressor PO Not Given BID [facility] Nitroglycerin 1 inch 03/03/18 12:00 03/03/18 17:38 Nitro-Bid Oint TOPICAL Not Given Q6HR [facility] Nitroglycerin 0.4 mg 03/03/18 10:14 Nitrostat SUBLINGUAL Q5M PRN Chest Pain Intake and Output 03/03/18 03/03/18 03/03/18 06:59 14:59 22:59 Other: Weight 81.647 kg Patient Weight 03/04/18 06:59 Weight 81.647 kg 03/03/18 07:29 03/03/18 07:29 EKG Interpretations (text) Atrial fibrillation with moderately rapid ventricular response Assessment and Plan (1) Atrial fibrillation Current Visit: Yes Status: Acute Code(s): I48.91 - UNSPECIFIED ATRIAL FIBRILLATION SNOMED Code(s): 11092796 (2) Dyspnea Current Visit: Yes Status: Acute Code(s): R06.00 - DYSPNEA, UNSPECIFIED SNOMED Code(s): 985402695 (3) Congestive heart failure Current Visit: No Status: Acute Code(s): I50.9 - HEART FAILURE, UNSPECIFIED SNOMED Code(s): 91418500 Plan: We will start her on IV amiodarone. We will discontinue flecainide. We'll proceed with cardioversion tomorrow
[2018-03-03] MEDS: GABAPENTIN 300 MG CAP PO SCH (20:00)
[2018-03-03] MEDS: APIXABAN 5 MG TAB PO SCH (20:00)
[2018-03-03 20:08] VITALS: BMI 26.6
[2018-03-03 20:45] LABS: Creatine Kinase 30 U/L (30-135)
[2018-03-03 20:58] LABS: Creatine Kinase MB 0.3 ng/mL (0.0-2.4); Troponin I <0.012 ng/mL (0.000-0.034)
[2018-03-03] MEDS ORDERED: FLECAINIDE 50 MG TAB PO SCH (21:00)
[2018-03-04 01:33] LABS: Cholesterol 208 mg/dL (<200); HDL Cholesterol 33 mg/dL (40-60); LDL Cholesterol,Calculated 113 mg/dL (0-99); Triglycerides 309 mg/dL (<150)
[2018-03-04] MEDS: NITROGLYCERIN OINT 1 INCH/GM PACKET TOPICAL SCH ×2 (05:25→13:31)
[2018-03-04] MEDS: GABAPENTIN 300 MG CAP PO SCH ×2 (08:15→20:34)
[2018-03-04] MEDS: METOPROLOL TARTRATE 12.5 MG TAB PO SCH ×2 (08:15→20:34)
[2018-03-04] MEDS ORDERED: ASPIRIN 325 MG TAB PO SCH (09:00)
[2018-03-04] MEDS ORDERED: PROPOFOL 10 MG/ML 20 ML VIAL IV ONE (10:49)
[2018-03-04] MEDS ORDERED: IV FLUID CONTINUATION 1,000 ML IV ONE (11:17)
--- NOTE | 2018-03-04 11:51 | P.PCN ---
Date of Procedure: 03/04/18 Preoperative Diagnosis: Atrial fibrillation Postoperative Diagnosis: Sinus rhythm Procedure(s) Performed: Cardioversion Description of Procedure: CARDIOVERSION: This patient was brought to the recovery room in a fasting state. She was evaluated by department of anesthesia. She was given IV propofol for sedation. Anterior posterior paddles were applied. He single shock of 200 J converted patient to sinus rhythm. Patient tolerated the procedure well. Subsequent EKG showed sinus bradycardia. FINAL IMPRESSION: Successful cardioversion. No complications. Patient will be discharged home on amiodarone
[2018-03-04] MEDS: APIXABAN 5 MG TAB PO SCH ×2 (13:33→20:34)
[2018-03-04] MEDS: ASPIRIN 81 MG PO SCH (13:33)
[2018-03-04] MEDS: LISINOPRIL 10 MG TAB PO SCH (13:33)
[2018-03-04] MEDS: GABAPENTIN 100 MG CAP PO SCH (13:33)
[2018-03-04] MEDS: LEVOTHYROXINE 75 MCG TAB PO SCH (13:34)
[2018-03-04] MEDS: ACETAMINOPHEN TAB 325 MG TAB PO PRN (14:32)
--- NOTE | 2018-03-04 15:19 | P.PN ---
Subjective Progress Note Date: 03/04/18 Progress note dictated for Dr. Durant. Interval history:62-year-old female who presents to the emergency department complaining that she thinks her heart is back in A. fib. Patient states she's had 2 ablations but to 3 days ago she started feeling her heart racing again. Patient states she sat up with cardiology appointment but she continues to be very short of breath feels weaker so she decided come emergency department today. Patient denies any chest pain. Patient denies any short of breath while laying here. Patient denies any recent fever chills or cough. Patient states she did not take her morning medications yet. Patient denies any headache patient denies numbness weakness. Patient denies lightheadedness dizziness or near syncopal episode. Patient denies any abdominal pain patient denies nausea vomiting diarrhea. She denied any orthopnea proximal nocturnal dyspnea chest x-ray did not show any pneumonic process. Patient is being admitted for evaluation by signal repairer of believe patient is on anticoagulation with Apixiban. 03/04/2018: Evaluated by cardiology, underwent successful cardioversion. Currently sinus bradycardia heart rates in the high 40s, asymptomatic. Tolerated procedure well. Denies chest pain, palpitations or increasing shortness of breath. Denies lightheadedness dizziness or focal deficits. Objective - Vital Signs Vital signs: Vital Signs Temp 97.7 F 03/04/18 08:00 Pulse 49 L 03/04/18 11:30 Resp 18 03/04/18 11:30 BP 143/86 03/04/18 11:30 Pulse Ox 92 L 03/04/18 11:30 Intake & Output 03/03/18 03/04/18 03/04/18 18:59 06:59 18:59 Intake Total 202.576 272 Output Total 600 Balance 202.576 -328 Weight 81.8 kg 81.6 kg Intake: IV 50 Intake, IV Titration 202.576 Amount Amiodarone 450 mg In 202.576 Dextrose 5% in Water 250 ml @ 1 MG/MIN 34.53 mls/ hr IV .Q7H31M [facility] Rx#: [id number] Oral 222 Output: Urine 600 Other: Voiding Method Toilet Toilet # Voids 1 - Exam GENERAL: The patient is alert and oriented x3, not in any acute distress. HEENT: Pupils are round and equally reacting to light. EOMI. No scleral icterus. No conjunctival pallor. Normocephalic, atraumatic. CARDIOVASCULAR: S1 and S2 present. Bradycardic. No murmurs, rubs, or gallops. PULMONARY: Chest is clear to auscultation, no wheezing or crackles. ABDOMEN: Soft, nontender, nondistended, normoactive bowel sounds. No palpable organomegaly. MUSCULOSKELETAL: No joint swelling or deformity. EXTREMITIES: No cyanosis, clubbing, or pedal edema. NEUROLOGICAL: Gross neurological examination did not reveal any focal deficits. SKIN: No rashes - Labs CBC & Chem 7: 03/03/18 07:29 03/03/18 07:29 Labs: Abnormal Lab Results - Last 24 Hours (Table) 03/03/18 Range/Units 07:29 Triglycerides 309 H (<150) mg/dL Cholesterol 208 H (<200) mg/dL LDL Cholesterol, Calc 113 H (0-99) mg/dL HDL Cholesterol 33 L (40-60) mg/dL Assessment and Plan Assessment: -atrial fibrillation, status post successful cardioversion. -Sinus bradycardia -Hypothyroidism -Hypertension -Osteoarthritis -Hyperlipidemia Plan: Continue on current medication regime ,monitoring and symptomatic treatment. Continue on amiodarone, beta yessi. Anticoagulated on Eliquis. Statin added to med regime. Discharge planning in progress for tomorrow. The impression and plan of care has been dictated as directed. : I performed a history and examination of this patient, discussed the same with the dictator. I agree with the dictator's note ,documented as a scribe. Any additional findings or plans will be noted.
[2018-03-04] MEDS: AMIODARONE 450 MG in DEXTROSE 5% IN WATER 250 ML IV SCH ×2 (20:29)
[2018-03-04] MEDS: SODIUM CHLORIDE 0.9% 1,000 ML IV SCH ×2 (20:30)
[2018-03-04] MEDS: AMIODARONE 200 MG TAB PO SCH (20:34)
[2018-03-04] MEDS ORDERED: ATORVASTATIN 40 MG TAB PO SCH (21:00)
[2018-03-05] MEDS: ACETAMINOPHEN TAB 325 MG TAB PO PRN (05:36)
[2018-03-05] MEDS: LEVOTHYROXINE 75 MCG TAB PO SCH (06:21)
[2018-03-05 06:37] LABS: Basophils % (A) 1 %; Eosinophils # (A) 0.1 k/uL (0-0.7); Eosinophils % (A) 2 %; HCT 36.7 % (34.0-46.0); HGB 12.1 gm/dL (11.4-16.0); Lymphocytes # (A) 1.6 k/uL (1.0-4.8); Lymphocytes % (A) 33 %; MCH 30.9 pg (25.0-35.0); MCV 93.7 fL (80.0-100.0); Mean Platelet Volume 8.4; Monocytes # (A) 0.3 k/uL (0-1.0); Monocytes % (A) 5 %; Neutrophils # (A) 2.8 k/uL (1.3-7.7); Neutrophils % (A) 58 %; Platelet Count 164 k/uL (150-450); RBC 3.92 m/uL (3.80-5.40); RDW 12.4 % (11.5-15.5); WBC 4.8 k/uL (3.8-10.6)
[2018-03-05 06:46] LABS: Anion Gap 6 mmol/L; Blood Urea Nitrogen 13 mg/dL (7-17); Carbon Dioxide 28 mmol/L (22-30); Chloride 104 mmol/L (98-107); Glucose 93 mg/dL (74-99); Sodium 138 mmol/L (137-145)
[2018-03-05 09:10] VITALS: RESP 16; TEMP 98
[2018-03-05] MEDS: METOPROLOL TARTRATE 12.5 MG TAB PO SCH (09:10)
[2018-03-05] MEDS: AMIODARONE 200 MG TAB PO SCH (09:10)
[2018-03-05] MEDS: LISINOPRIL 10 MG TAB PO SCH (09:10)
[2018-03-05] MEDS: ASPIRIN 81 MG PO SCH (09:10)
[2018-03-05] MEDS: GABAPENTIN 300 MG CAP PO SCH (09:10)
[2018-03-05] MEDS: APIXABAN 5 MG TAB PO SCH (09:11)
[2018-03-05] MEDS: GABAPENTIN 100 MG CAP PO SCH (11:44)
[2018-03-05] MEDS: SODIUM CHLORIDE 0.9% 1,000 ML IV SCH ×2 (11:44)
[2018-03-05 11:46] VITALS: BP 165/87; PULSE 52
--- NOTE | 2018-03-05 12:38 | P.DS ---
Providers Date of admission: 03/03/18 10:20 Attending physician: Talya Cox Consults: 03/03/18 10:14 Consult Physician Urgent Consulting Provider: [facility] Consult Reason/Comments: A. fib Do you want consulting provider notified?: Yes Primary care physician: Carol Curtis [facility] Course: 62-year-old female who presents to the emergency department complaining that she thinks her heart is back in A. fib. Patient states she's had 2 ablations but to 3 days ago she started feeling her heart racing again. Patient states she sat up with cardiology appointment but she continues to be very short of breath feels weaker so she decided come emergency department today. Patient denies any chest pain. Patient denies any short of breath while laying here. Patient denies any recent fever chills or cough. Patient states she did not take her morning medications yet. Patient denies any headache patient denies numbness weakness. Patient denies lightheadedness dizziness or near syncopal episode. Patient denies any abdominal pain patient denies nausea vomiting diarrhea. She denied any orthopnea proximal nocturnal dyspnea chest x-ray did not show any pneumonic process. Patient is being admitted for evaluation by control panel builder of believe patient is on anticoagulation with Apixiban. 03/04/2018: Evaluated by cardiology, underwent successful cardioversion. Currently sinus bradycardia heart rates in the high 40s, asymptomatic. Tolerated procedure well. Denies chest pain, palpitations or increasing shortness of breath. Denies lightheadedness dizziness or focal deficits. 03/05/2018 -Patient is cleared for discharge from cardiology perspective heart rate is well controlled PHYSICAL EXAMINATION: GENERAL: The patient is alert and oriented x3, not in any acute distress. Well developed, well nourished. HEENT: Pupils are round and equally reacting to light. EOMI. No scleral icterus. No conjunctival pallor. Normocephalic, atraumatic. No pharyngeal erythema. No thyromegaly. CARDIOVASCULAR: S1 and S2 present. No murmurs, rubs, or gallops. PULMONARY: Chest is clear to auscultation, no wheezing or crackles. ABDOMEN: Soft, nontender, nondistended, normoactive bowel sounds. No palpable organomegaly. MUSCULOSKELETAL: No joint swelling or deformity. EXTREMITIES: No cyanosis, clubbing, or pedal edema. NEUROLOGICAL: Gross neurological examination did not reveal any focal deficits. SKIN: No rashes. Assessment and Plan Assessment: -atrial fibrillation, status post successful cardioversion. -Sinus bradycardia -Hypothyroidism -Hypertension -Osteoarthritis -Hyperlipidemia Plan - Discharge Summary Discharge Rx Participant: No New Discharge Prescriptions: New Amiodarone [Cordarone] 200 mg PO BID #60 tab Continue Apixaban [Eliquis] 5 mg PO BID #60 tab Lisinopril [Zestril] 10 mg PO DAILY #30 tab Metoprolol Tartrate [Lopressor] 12.5 mg PO DAILY #30 tab Discontinued Flecainide Acetate [Tambocor] 100 mg PO Q12HR No Action Levothyroxine Sodium [Levoxyl] 75 mcg PO DAILY Gabapentin [Neurontin] 100 mg PO DAILY@1200 Gabapentin [Neurontin] 300 mg PO BID Discharge Medication List Gabapentin [Neurontin] 100 mg PO DAILY@1200 08/14/17 [History] Levothyroxine Sodium [Levoxyl] 75 mcg PO DAILY 08/14/17 [History] Gabapentin [Neurontin] 300 mg PO BID 08/15/17 [History] Apixaban [Eliquis] 5 mg PO BID #60 tab 08/18/17 [Rx] Lisinopril [Zestril] 10 mg PO DAILY #30 tab 02/12/18 [Rx] Metoprolol Tartrate [Lopressor] 12.5 mg PO DAILY #30 tab 02/12/18 [Rx] Amiodarone [Cordarone] 200 mg PO BID #60 tab 03/04/18 [Rx] Follow up Appointment(s)/Referral(s): Carol Curtis MD [Primary Care Provider] - 03/10/18 10:00 am (With Bita TORRES) Ginny Aguilar MD [STAFF PHYSICIAN] - 03/10/18 10:15 am Patient Instructions/Handouts: A-fib (Atrial Fibrillation) (DC), Transesophageal Echocardiogram (DC), Cardioversion (DC) Activity/Diet/Wound Care/Special Instructions: Repeat TSH and free T4 in 2-3 weeks. Discharge Disposition: HOME SELF-CARE
--- NOTE | 2018-03-05 16:07 | PN ---
PROGRESS NOTE This is a lady with a history of atrial fibrillation who underwent electrical cardioversion yesterday by Dr. Aguilar. She is in a sinus rhythm, doing well. She is on amiodarone that was given intravenously. She is on oral amiodarone, which has already been called in. She is maintaining sinus rhythm, resting comfortably. Vital signs are stable. There is no JVD or carotid bruit. S1, S2 heard normally. No significant murmurs. Lungs are clear. Abdomen is soft, nontender. Rest of physical examination is unchanged. Plan is to increase activity and possibly discharge this patient today. She will follow up with Dr. Aguilar in one week or less. Advised to continue current medical regimen. Patient is on apixaban 5 mg b.i.d., amiodarone and metoprolol. She will see Dr. Aguilar in one week. Physical exam did not reveal any significant new findings. Vitals are stable. Heart rate is about 60 per minute, sinus. There is no JVD or carotid bruit. S1, S2 heard normally. Lungs reveal decent air entry. Abdomen is soft, nontender. Lower extremities reveal diminished pulses. Central nervous system is grossly within normal limits. There are no focal neurological deficits. IMPRESSION: 1. Paroxysmal atrial fibrillation, status post electrical cardioversion. Will continue on amiodarone for now. 2. Hypertension. 3. Diastolic dysfunction, which has improved. Patient can be discharged today. MMODL / IJN: [id number] /
== END 2018-03-05 14:17 | disposition home or self-care (01) ==
LOC: EC 07:06 → 3SCARD 10:20
PROVIDERS: ADMIT Hospitalist; ATTEND Hospitalist
DX: I48.0 Paroxysmal atrial fibrillation (principal); I48.1 Persistent atrial fibrillation; E03.9 Hypothyroidism, unspecified; I11.0 Hypertensive heart disease with heart failure; I50.30 Unspecified diastolic (congestive) heart failure; R00.1 Bradycardia, unspecified; M19.90 Unspecified osteoarthritis, unspecified site; E78.5 Hyperlipidemia, unspecified; Z79.899 Other long term (current) drug therapy; Z79.890 Hormone replacement therapy; Z79.01 Long term (current) use of anticoagulants; Z88.0 Allergy status to penicillin; Z80.49 Family history of malignant neoplasm of other genital organs; Z80.0 Family history of malignant neoplasm of digestive organs; Z83.3 Family history of diabetes mellitus; Z83.79 Family history of other diseases of the digestive system
CPT/HCPCS: 99285; 36415; 94760; 93005; 92960; 84439; 80061; 80053; 80048; 84443; 82550; 82553; 83735; 84484; 85025 ×2; 85610; 85730; 71046; G0378 ×3; J0282 ×2; J2704

== ENCOUNTER 2018-05-22 07:42 | Emergency (ER) | payer BC, MEDICARE ==
[2018-05-22 07:47] VITALS: RESP 18
--- NOTE | 2018-05-22 07:59 | ED ---
General Adult HPI - General Chief complaint: Extremity Injury, Lower Stated complaint: Fall Time Seen by Provider: 05/22/18 07:45 Source: patient, RN notes reviewed Mode of arrival: ambulatory Limitations: no limitations - History of Present Illness Initial comments: This is a 63-year-old female who presents to the emergency department complaining of swelling is to her right leg. Patient states she fell a week ago and hurt her legs when she fell and since then his been a lot of bruising but the bruising and swelling haven't gone away and she is concerned that there may be a problem. Patient states she has full range of motion of her knee foot and ankle. Patient states the area is slightly tender but she was more concerned about the bruising not having gone away. Patient also states at that time she did strike her head and she is on eliquis. Patient states she has had a 2 out of 3 headache some of the days and she does have one today. Patient denies any numbness or weakness per patient denies any neck pain. Patient denies any other problems at this time. - Related Data Home Medications Medication Instructions Recorded Confirmed Gabapentin [Neurontin] 100 mg PO DAILY@1200 08/14/17 03/03/18 Levothyroxine Sodium [Levoxyl] 75 mcg PO DAILY 08/14/17 03/03/18 Gabapentin [Neurontin] 300 mg PO BID 08/15/17 03/03/18 Previous Rx's Medication Instructions Recorded Apixaban [Eliquis] 5 mg PO BID #60 tab 08/18/17 Lisinopril [Zestril] 10 mg PO DAILY #30 tab 02/12/18 Metoprolol Tartrate [Lopressor] 12.5 mg PO DAILY #30 tab 02/12/18 Amiodarone [Cordarone] 200 mg PO BID #60 tab 03/04/18 Allergies Allergy/AdvReac Type Severity Reaction Status Date / Time Penicillins Allergy Rash/Hives Verified 03/03/18 08:00 Review of Systems ROS Statement: Those systems with pertinent positive or pertinent negative responses have been documented in the HPI. ROS Other: All systems not noted in ROS Statement are negative. Past Medical History Past Medical History: Atrial Fibrillation, Hypertension, Osteoarthritis (OA), Thyroid Disorder Additional Past Medical History / Comment(s): Afib with RVR, arthritis especially in hips, hypothyroid, past L arm fracture/casted History of Any Multi-Drug Resistant Organisms: None Reported Past Surgical History: No Surgical Hx Reported Additional Past Surgical History / Comment(s): 08/2017 SHAHEEN/cardioversion, bilateral laser eye surgery for cataracts; colonoscopy-normal Past Anesthesia/Blood Transfusion Reactions: No Reported Reaction Additional Past Anesthesia/Blood Transfusion Reaction / Comment(s): pt stated at age 23 had a misscarriage- received blood transfusion0 no reaction. Past Psychological History: No Psychological Hx Reported Smoking Status: Never smoker Past Drug Use History: None Reported - Past Family History Mother Family Medical History: Cancer, Diabetes Mellitus Additional Family Medical History / Comment(s): colon ca, uterine ca Father Family Medical History: Liver Disease Sister(s) Family Medical History: Diabetes Mellitus General Exam - General Exam Comments Initial Comments: GENERAL: Patient is well-developed and well-nourished. Patient is nontoxic and well- hydrated and is in mild distress. There is no obvious injury to the scalp. ENT: Neck is soft and supple. No significant lymphadenopathy is noted. Oropharynx is clear. Moist mucous membranes. Neck has full range of motion without eliciting any pain. EYES: The sclera were anicteric and conjunctiva were pink and moist. Extraocular movements were intact and pupils were equal round and reactive to light. Eyelids were unremarkable. PULMONARY: Unlabored respirations. Good breath sounds bilaterally. No audible rales rhonchi or wheezing was noted. CARDIOVASCULAR: There is a regular rate and rhythm without any murmurs gallops or rubs. ABDOMEN: Soft and nontender with normal bowel sounds. No palpable organomegaly was noted. There is no palpable pulsatile mass. SKIN: Skin is clear with no lesions or rashes and otherwise unremarkable. NEUROLOGIC: Patient is alert and oriented x3. Cranial nerves II through XII are grossly intact. Motor and sensory are also intact. Normal speech, volume and content. Symmetrical smile. MUSCULOSKELETAL: Patient has significant anterior bruising to both legs but the bruises look like they're resolving in the area is only minimally tender on the right leg and there is no tenderness in the left leg. Patient also has a bruise to the lateral aspect of the left upper arm but there is no limitation of range of motion of the shoulder or elbow. LYMPHATICS: No significant lymphadenopathy is noted PSYCHIATRIC: Normal psychiatric evaluation. Limitations: no limitations Course Vital Signs 05/22/18 07:43 Temperature 97.9 F Pulse Rate 66 Respiratory 18 Rate Blood Pressure 198/103 O2 Sat by Pulse 99 Oximetry Medical Decision Making - Medical Decision Making X-rays of the tib-fib are negative. Computed tomography scan of the brain is negative. Disposition Clinical Impression: Head injury, Cephalgia, Multiple leg contusions Disposition: HOME SELF-CARE Condition: Good Instructions (If sedation given, give patient instructions): Contusion in Adults (ED), Head Injury (ED) Is patient prescribed a controlled substance at d/c from ED?: No Referrals: Carol Curtis MD [Primary Care Provider] - 1-2 days Time of Disposition: 08:53
--- NOTE | 2018-05-22 08:27 | CT ---
EXAMINATION TYPE: CT brain wo con DATE OF EXAM: 05/22/2018 COMPARISON: 08/02/2013 INDICATION: Fall DLP: 1079.4 mGycm, Automated exposure control for dose reduction was used. CONTRAST: None CT of the brain is performed utilizing 3 mm thick sections through the posterior fossa and 3 mm thick sections through the remaining calvarium. Study is performed within 24 hours of arrival to the hosp [facility]. No abnormal hyperdensity is present to suggest an acute intracranial hemorrhage. No mass lesion is evident. No acute infarcts are evident. Subtle hypodensity within the right basal ganglion could be an old lac unar infarct. There is suggestion this was present on the comparison. Ventricles and sulci are appropriate for the patient age. Paranasal sinuses and mastoid air cells within the ecqed-yq-pney are clear. IMPRESSIONS: 1. No acute intracranial process.
--- NOTE | 2018-05-22 08:36 | XR ---
EXAMINATION TYPE: XR tibia fibula RT DATE OF EXAM: 05/22/2018 COMPARISON: NONE HISTORY: Pain TECHNIQUE: 2 view right tibia and fibula FINDINGS: No acute fractures are evident. Ankle mortise is intact. Soft tissues are unremarkable. IMPRESSION: 1. No acute osseous abnormality right tibia and fibula
[2018-05-22 09:15] VITALS: BP 179/89; PULSE 50; TEMP 98.1
== END 2018-05-22 09:10 | disposition home or self-care (01) ==
LOC: EC 07:42
DX: S80.12XA Contusion of left lower leg, initial encounter (principal); S80.11XA Contusion of right lower leg, initial encounter; S00.90XA Unspecified superficial injury of unspecified part of head, initial encounter; S40.022A Contusion of left upper arm, initial encounter; E03.9 Hypothyroidism, unspecified; I48.91 Unspecified atrial fibrillation; Z98.890 Other specified postprocedural states; Z79.890 Hormone replacement therapy; Z79.899 Other long term (current) drug therapy; Z88.0 Allergy status to penicillin; W10.9XXA Fall (on) (from) unspecified stairs and steps, initial encounter
CPT/HCPCS: 70450; 99284

== ENCOUNTER → 2018-08-04 | Outpatient (CLI) | payer MEDICARE ==
[2018-08-04 18:46] LABS: Albumin 4.1 g/dL (3.80-4.90); Albumin/Globulin Ratio 1.78 (1.60-3.17); Bilirubin, Conjugated 0.2 mg/dL (0.20-0.40); Bilirubin,Unconjugated 0.7 mg/dL; Globulin 2.3 g/dL (1.6-3.3); Total Bilirubin 0.9 mg/dL (0.3-1.2); Total Protein 6.4 g/dL (6.2-8.2)
[2018-08-04 18:54] LABS: T4, Free (Free Thyroxine) 1.2 ng/dL (0.80-1.80)
== END | disposition home or self-care (01) ==
LOC: LABWHC1 10:23
PROVIDERS: ATTEND Internal Medicine Cardiovascular Disease
DX: I48.91 Unspecified atrial fibrillation (principal); Z79.01 Long term (current) use of anticoagulants
CPT/HCPCS: 36415; 80076; 84439; 84443

== ENCOUNTER → 2018-12-06 | Outpatient (CLI) | payer MEDICARE ==
[2018-12-06 18:24] LABS: Albumin/Globulin Ratio 1.67 (1.60-3.17); Bilirubin, Conjugated 0.2 mg/dL (0.20-0.40); Bilirubin,Unconjugated 0.9 mg/dL; Globulin 2.4 g/dL (1.6-3.3); Total Bilirubin 1.1 mg/dL (0.3-1.2); Total Protein 6.4 g/dL (6.2-8.2)
[2018-12-06 18:34] LABS: T4, Free (Free Thyroxine) 1.2 ng/dL (0.80-1.80)
== END | disposition home or self-care (01) ==
LOC: LABWHC1 13:26
PROVIDERS: ATTEND Internal Medicine Cardiovascular Disease
DX: Z51.81 Encounter for therapeutic drug level monitoring (principal); Z79.899 Other long term (current) drug therapy
CPT/HCPCS: 36415; 80076; 84439; 84443

== ENCOUNTER → 2018-12-22 | Outpatient (CLI) | payer MEDICARE ==
[2018-12-22 20:52] LABS: T4, Free (Free Thyroxine) 1.5 ng/dL (0.80-1.80)
== END | disposition home or self-care (01) ==
LOC: LABWHC1 12:35
PROVIDERS: ATTEND Nurse Practitioner Family
DX: E03.9 Hypothyroidism, unspecified (principal); E05.90 Thyrotoxicosis, unspecified without thyrotoxic crisis or storm; R41.3 Other amnesia
CPT/HCPCS: 36415; 82607; 84439; 84443; 84481

== ENCOUNTER → 2019-01-18 | Outpatient (CLI) | payer MEDICARE ==
--- NOTE | 2019-01-19 11:13 | MM ---
Reason for exam: screening (asymptomatic). Last mammogram was performed 1 year and 4 months ago. History: Patient is postmenopausal. Physical Findings: A clinical breast exam by your physician is recommended on an annual basis and results should be correlated with mammographic findings. MG 3D Screening Mammo W/Cad Bilateral CC and MLO view(s) were taken. Prior study comparison: September 20, 2017, bilateral MG screening mammo w CAD. September 06, 2013, bilateral MG screening mammo w CAD. There are scattered fibroglandular densities. There is no discrete abnormality. No significant changes when compared with prior studies. ASSESSMENT: Negative, BI-RAD 1 RECOMMENDATION: Routine screening mammogram of both breasts in 1 year.
== END | disposition home or self-care (01) ==
LOC: RADMAMWWP 08:03
PROVIDERS: ATTEND Obstetrics & Gynecology
DX: Z12.31 Encounter for screening mammogram for malignant neoplasm of breast (principal)
CPT/HCPCS: 77063; 77067

== ENCOUNTER → 2019-01-23 | Outpatient (CLI) | payer MEDICARE ==
--- NOTE | 2019-02-01 13:18 | MR ---
MR right lower extremity HISTORY: Popliteal aneurysm Multiplanar multisequence and postcontrast images obtained through the region of the right knee follo wing 8.5 cc Gadavist IV. Three-dimensional reconstructions performed on an alternate workstation. There are no comparisons. The popliteal artery shows aneurysmal dilation measuring approximately 11 mm on postcontrast images a t the level posterior to the distal femur. There is irregularity of the wall of the popliteal artery on the right which may be due to atheromatous change. No evident dissection. There are eccentric lami radha signal abnormalities seen on precontrast images possibly representing plaque or may be related to laminar flow differences. Artifact is present. Trifurcation vasculature is patent. Left popliteal ar jonathan, trifurcation thought to be patent. 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 Consider vascular surgery consult.
== END | disposition home or self-care (01) ==
LOC: RADMRIMAIN 12:39
PROVIDERS: ATTEND Psychiatry & Neurology Neurology
DX: I72.4 Aneurysm of artery of lower extremity (principal); R93.89 Abnormal findings on diagnostic imaging of other specified body structures
CPT/HCPCS: C8914; A9585

== ENCOUNTER 2019-02-01 17:01 | Emergency (ER) | payer MEDICARE ==
[2019-02-01 17:10] VITALS: TEMP 97.8
[2019-02-01] MEDS ORDERED: hydrALAZINE HCL 20 MG/ML 1 ML VIAL IVP STA (17:25)
--- NOTE | 2019-02-01 17:27 | ED ---
General Adult HPI - General Chief complaint: Recheck/Abnormal Lab/Rx Stated complaint: elevated BP Time Seen by Provider: 02/01/19 17:10 Source: patient, RN notes reviewed, old records reviewed Mode of arrival: ambulatory Limitations: no limitations - History of Present Illness Initial comments: This a 63-year-old female who presents emergency department today with a complaint of elevated blood pressure. 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 They told to take an extra lisinopril which she did but the blood pressure elevated eat more and at that point time she decided come to the emergency department. Patient states she has no headache she has no numbness or weakness. Patient denies any blurred vision. Patient denies any slurred speech. Patient denies any chest pain palpitations difficulty breathing or shortness of breath per patient denies any recent fever chills or cough. Patient denies any leg swelling or calf tenderness. - Related Data Home Medications Medication Instructions Recorded Confirmed Gabapentin [Neurontin] 100 mg PO DAILY@1200 08/14/17 02/01/19 Gabapentin [Neurontin] 300 mg PO BID@0800,2000 08/15/17 02/01/19 Amiodarone [Cordarone] 100 mg PO DAILY 02/01/19 02/01/19 Levothyroxine Sodium [Synthroid] 125 mcg PO DAILY 02/01/19 02/01/19 Metoprolol Tartrate [Lopressor] 25 mg PO DAILY 02/01/19 02/01/19 Previous Rx's Medication Instructions Recorded Apixaban [Eliquis] 5 mg PO BID #60 tab 08/18/17 Lisinopril [Zestril] 10 mg PO DAILY #30 tab 02/12/18 Allergies Allergy/AdvReac Type Severity Reaction Status Date / Time Penicillins Allergy Rash/Hives Verified 02/01/19 18:34 Wyngcit-Tkk-Lyh Reductase AdvReac RIGHT SIDE Verified 02/01/19 18:38 Inhibitor NUMBNESS Review of Systems ROS Statement: Those systems with pertinent positive or pertinent negative responses have been documented in the HPI. ROS Other: All systems not noted in ROS Statement are negative. Past Medical History Past Medical History: Atrial Fibrillation, Hypertension, Osteoarthritis (OA), Thyroid Disorder Additional Past Medical History / Comment(s): Afib with RVR, arthritis especially in hips, hypothyroid, past L arm fracture/casted History of Any Multi-Drug Resistant Organisms: None Reported Past Surgical History: No Surgical Hx Reported Additional Past Surgical History / Comment(s): 08/2017 SHAHEEN/cardioversion, bilateral laser eye surgery for cataracts; colonoscopy-normal Past Anesthesia/Blood Transfusion Reactions: No Reported Reaction Additional Past Anesthesia/Blood Transfusion Reaction / Comment(s): pt stated at age 23 had a misscarriage- received blood transfusion0 no reaction. Past Psychological History: No Psychological Hx Reported Smoking Status: Never smoker Past Drug Use History: None Reported - Past Family History Mother Family Medical History: Cancer, Diabetes Mellitus Additional Family Medical History / Comment(s): colon ca, uterine ca Father Family Medical History: Liver Disease Sister(s) Family Medical History: Diabetes Mellitus General Exam - General Exam Comments Initial Comments: GENERAL: Patient is well-developed and well-nourished. Patient is nontoxic and well- hydrated and is in no acute distress. ENT: Neck is soft and supple. No significant lymphadenopathy is noted. Oropharynx is clear. Moist mucous membranes. Neck has full range of motion without eliciting any pain. EYES: The sclera were anicteric and conjunctiva were pink and moist. Extraocular movements were intact and pupils were equal round and reactive to light. Eyelids were unremarkable. PULMONARY: Unlabored respirations. Good breath sounds bilaterally. No audible rales rhonchi or wheezing was noted. CARDIOVASCULAR: There is a regular rate and rhythm without any murmurs gallops or rubs. ABDOMEN: Soft and nontender with normal bowel sounds. SKIN: Skin is clear with no lesions or rashes and otherwise unremarkable. NEUROLOGIC: Patient is alert and oriented x3. Cranial nerves II through XII are grossly intact. Motor and sensory are also intact. Normal speech, volume and content. Symmetrical smile. MUSCULOSKELETAL: Normal extremities with adequate strength and full range of motion. LYMPHATICS: No significant lymphadenopathy is noted PSYCHIATRIC: Normal psychiatric evaluation. Limitations: no limitations Course Vital Signs 02/01/19 02/01/19 02/01/19 17:09 18:03 18:30 Temperature 97.8 F Pulse Rate 56 L 57 L 55 L Respiratory 20 19 17 Rate Blood Pressure 218/110 203/107 O2 Sat by Pulse 97 96 95 Oximetry 02/01/19 02/01/1902/01/19 19:00 19:10 19:20 Temperature Pulse Rate 56 L 58 L 61 Respiratory 19 13 17 Rate Blood Pressure 207/100 157/84 153/81 O2 Sat by Pulse 96 95 96 Oximetry Medical Decision Making - Medical Decision Making EKG shows sinus bradycardia 56 bpm RI interval 224 QRS is 1 week QT interval 462 QTC is 445. Patient's EKG shows no ST segment elevation or depression or T wave abnormalities are noted. I gave the patient hydralazine 20 mg and the blood pressure came down nicely. Patient will go home and take blood pressures 4 times a day and follow-up with primary medical care doctor. - Lab Data Result diagrams: 02/01/19 17:53 02/01/19 17:53 Lab Results 02/01/19 02/01/19 02/01/19 Range/Units 17:53 17:53 17:53 WBC 5.9 (3.8-10.6) k/uL RBC 4.51 (3.80-5.40) m/uL Hgb 14.1 (11.4-16.0) gm/dL Hct 41.1 (34.0-46.0) % MCV 91.2 (80.0-100.0) fL MCH 31.3 (25.0-35.0) pg MCHC 34.3 (31.0-37.0) g/dL RDW 12.7 (11.5-15.5) % Plt Count 175 (150-450) k/uL Neutrophils % 57 % Lymphocytes % 34 % Monocytes % 5 % Eosinophils % 1 % Basophils % 1 % Neutrophils # 3.4 (1.3-7.7) k/uL Lymphocytes # 2.0 (1.0-4.8) k/uL Monocytes # 0.3 (0-1.0) k/uL Eosinophils # 0.1 (0-0.7) k/uL Basophils # 0.1 (0-0.2) k/uL PT 10.3 (9.0-12.0) sec INR 1.0 (<1.2) APTT 26.4 (22.0-30.0) sec Sodium 139 (137-145) mmol/L Potassium 3.7 (3.5-5.1) mmol/L Chloride 104 (98-107) mmol/L Carbon Dioxide 26 (22-30) mmol/L Anion Gap 9 mmol/L BUN 14 (7-17) mg/dL Creatinine 0.77 (0.52-1.04) mg/dL Est GFR (CKD-EPI)AfAm >90 (>60 ml/min/1.73 sqM) Est GFR (CKD-EPI)NonAf 81 (>60 ml/min/1.73 sqM) Glucose 101 H (74-99) mg/dL Calcium 9.3 (8.4-10.2) mg/dL Magnesium 2.1 (1.6-2.3) mg/dL Total Bilirubin 1.2 (0.2-1.3) mg/dL AST 20 (14-36) U/L ALT 20 (9-52) U/L Alkaline Phosphatase 69 (38-126) U/L Troponin I (0.000-0.034) ng/mL Total Protein 7.7 (6.3-8.2) g/dL Albumin 4.3 (3.5-5.0) g/dL 02/01/19 Range/Units 17:53 WBC (3.8-10.6) k/uL RBC (3.80-5.40) m/uL Hgb (11.4-16.0) gm/dL Hct (34.0-46.0) % MCV (80.0-100.0) fL MCH (25.0-35.0) pg MCHC (31.0-37.0) g/dL RDW (11.5-15.5) % Plt Count (150-450) k/uL Neutrophils % % Lymphocytes % % Monocytes % % Eosinophils % % Basophils % % Neutrophils # (1.3-7.7) k/uL Lymphocytes # (1.0-4.8) k/uL Monocytes # (0-1.0) k/uL Eosinophils # (0-0.7) k/uL Basophils # (0-0.2) k/uL PT (9.0-12.0) sec INR (<1.2) APTT (22.0-30.0) sec Sodium (137-145) mmol/L Potassium (3.5-5.1) mmol/L Chloride (98-107) mmol/L Carbon Dioxide (22-30) mmol/L Anion Gap mmol/L BUN (7-17) mg/dL Creatinine (0.52-1.04) mg/dL Est GFR (CKD-EPI)AfAm (>60 ml/min/1.73 sqM) Est GFR (CKD-EPI)NonAf (>60 ml/min/1.73 sqM) Glucose (74-99) mg/dL Calcium (8.4-10.2) mg/dL Magnesium (1.6-2.3) mg/dL Total Bilirubin (0.2-1.3) mg/dL AST (14-36) U/L ALT (9-52) U/L Alkaline Phosphatase (38-126) U/L Troponin I <0.012 (0.000-0.034) ng/mL Total Protein (6.3-8.2) g/dL Albumin (3.5-5.0) g/dL Disposition Clinical Impression: Hypertensive urgency Disposition: HOME SELF-CARE Condition: Good Instructions (If sedation given, give patient instructions): Hypertension (ED) Additional Instructions: Patient should take metoprolol twice a day. Is patient prescribed a controlled substance at d/c from ED?: No Referrals: Carol Curtis MD [Primary Care Provider] - 1-2 days Time of Disposition: 19:31
[2019-02-01 18:12] LABS: Basophils # (A) 0.1 k/uL (0-0.2); Basophils % (A) 1 %; Eosinophils # (A) 0.1 k/uL (0-0.7); Eosinophils % (A) 1 %; HCT 41.1 % (34.0-46.0); HGB 14.1 gm/dL (11.4-16.0); Lymphocytes % (A) 34 %; MCH 31.3 pg (25.0-35.0); MCHC 34.3 g/dL (31.0-37.0); MCV 91.2 fL (80.0-100.0); Mean Platelet Volume 8.5; Monocytes # (A) 0.3 k/uL (0-1.0); Monocytes % (A) 5 %; Neutrophils # (A) 3.4 k/uL (1.3-7.7); Neutrophils % (A) 57 %; Platelet Count 175 k/uL (150-450); RBC 4.51 m/uL (3.80-5.40); RDW 12.7 % (11.5-15.5); WBC 5.9 k/uL (3.8-10.6)
[2019-02-01 18:23] LABS: Partial Thromboplastin Time 26.4 sec (22.0-30.0); Prothrombin Time 10.3 sec (9.0-12.0)
[2019-02-01 18:37] LABS: ALT 20 U/L (9-52); AST 20 U/L (14-36); African American GFR (CKD) >90 (>60 ml/min/1.73 sqM); Albumin 4.3 g/dL (3.5-5.0); Alkaline Phosphatase 69 U/L (38-126); Anion Gap 9 mmol/L; Blood Urea Nitrogen 14 mg/dL (7-17); Calcium 9.3 mg/dL (8.4-10.2); Carbon Dioxide 26 mmol/L (22-30); Chloride 104 mmol/L (98-107); Glucose 101 mg/dL (74-99); Magnesium 2.1 mg/dL (1.6-2.3); Potassium 3.7 mmol/L (3.5-5.1); Sodium 139 mmol/L (137-145); Total Bilirubin 1.2 mg/dL (0.2-1.3); Total Protein 7.7 g/dL (6.3-8.2)
[2019-02-01] MEDS ORDERED: KETOROLAC 60 MG/2 ML VIAL IVP STA ×2 (19:34→19:37)
[2019-02-01 20:20] VITALS: BP 164/86; PULSE 64; RESP 20
== END 2019-02-01 20:10 | disposition home or self-care (01) ==
LOC: EC 17:01
DX: I16.0 Hypertensive urgency (principal); I10 Essential (primary) hypertension; I48.91 Unspecified atrial fibrillation; E07.9 Disorder of thyroid, unspecified; Z98.890 Other specified postprocedural states; Z79.890 Hormone replacement therapy; Z79.899 Other long term (current) drug therapy; Z88.0 Allergy status to penicillin; Z88.8 Allergy status to other drugs, medicaments and biological substances; Z53.8 Procedure and treatment not carried out for other reasons
CPT/HCPCS: 36415; 93005; 80053; 83735; 84484; 85025; 85610; 85730; 99284; 96374; 96375; J0360; J1885

== ENCOUNTER 2020-07-22 07:44 | Observation (INO) | payer MEDICARE ==
[2020-07-22] MEDS ORDERED: NITROGLYCERIN SL TABS 0.4 MG TAB SUBLINGUAL STA (08:04)
[2020-07-22] MEDS ORDERED: SODIUM CHLORIDE 0.9% 1,000 ML IV STA (08:04)
--- NOTE | 2020-07-22 08:08 | ED ---
Arrhythmia/Palpitations HPI - General Chief Complaint: Arrhythmia/Palpitations Stated Complaint: AFib Time Seen by Provider: 07/22/20 07:55 Source: patient, RN notes reviewed Mode of arrival: ambulatory Limitations: no limitations - History of Present Illness Initial Comments: This is a 65-year-old female history of A. fib who presents today with compla ints of worsening symptoms of palpitations sharp achy back pain 4/10 severity to left upper quadrant pain. 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 No fevers chills nausea vomiting sweats cough or other symptoms. She is on blood thinners at this time. MD Complaint: rapid heart beat, palpitations - Related Data Home Medications Medication Instructions Recorded Confirmed Gabapentin [Neurontin] 100 mg PO DAILY@1200 08/14/17 02/01/19 Gabapentin [Neurontin] 300 mg PO BID@0800,2000 08/15/17 02/01/19 Amiodarone [Cordarone] 100 mg PO DAILY 02/01/19 02/01/19 Levothyroxine Sodium [Synthroid] 125 mcg PO DAILY 02/01/19 02/01/19 Metoprolol Tartrate [Lopressor] 25 mg PO DAILY 02/01/19 02/01/19 Previous Rx's Medication Instructions Recorded Apixaban [Eliquis] 5 mg PO BID #60 tab 08/18/17 Lisinopril [Zestril] 10 mg PO DAILY #30 tab 02/12/18 Allergies Allergy/AdvReac Type Severity Reaction Status Date / Time Penicillins Allergy Rash/Hives Verified 07/22/20 09:32 Okvjpkz-Ztg-Mwt Reductase AdvReac Right Side Verified 07/22/20 09:32 Inhibitor Numbness & Muscle Pain Review of Systems ROS Statement: Those systems with pertinent positive or pertinent negative responses have been documented in the HPI. ROS Other: All systems not noted in ROS Statement are negative. Past Medical History Past Medical History: Atrial Fibrillation, Hypertension, Osteoarthritis (OA), Thyroid Disorder Additional Past Medical History / Comment(s): Afib with RVR, arthritis especially in hips, hypothyroid, past L arm fracture/casted, en;arged heart History of Any Multi-Drug Resistant Organisms: None Reported Past Surgical History: No Surgical Hx Reported Additional Past Surgical History / Comment(s): 08/2017 SHAHEEN/cardioversion, bilateral laser eye surgery for cataracts; colonoscopy-normal Past Anesthesia/Blood Transfusion Reactions: No Reported Reaction Additional Past Anesthesia/Blood Transfusion Reaction / Comment(s): pt stated at age 23 had a misscarriage- received blood transfusion0 no reaction. Past Psychological History: No Psychological Hx Reported Smoking Status: Never smoker Past Alcohol Use History: None Reported Past Drug Use History: None Reported - Past Family History Mother Family Medical History: Cancer, Diabetes Mellitus Additional Family Medical History / Comment(s): colon ca, uterine ca Father Family Medical History: Liver Disease Sister(s) Family Medical History: Diabetes Mellitus General Exam - General Exam Comments Initial Comments: This is a well-developed well-nourished awake alert oriented 3 female Limitations: no limitations General appearance: alert, anxious Head exam: Present: atraumatic, normocephalic, normal inspection Eye exam: Present: normal appearance, PERRL, EOMI. Absent: scleral icterus, conjunctival injection, periorbital swelling ENT exam: Present: normal exam, mucous membranes moist Neck exam: Present: normal inspection. Absent: tenderness, meningismus, lymphadenopathy Respiratory exam: Present: normal lung sounds bilaterally. Absent: respiratory distress, wheezes, rales, rhonchi, stridor Cardiovascular Exam: Present: irregular rhythm. Absent: systolic murmur, diastolic murmur, rubs, gallop, clicks GI/Abdominal exam: Present: soft, normal bowel sounds. Absent: distended, tenderness, guarding, rebound, rigid Extremities exam: Present: normal inspection, full ROM, normal capillary refill. Absent: tenderness, pedal edema, joint swelling, calf tenderness Back exam: Present: normal inspection Neurological exam: Present: alert, oriented X3, CN II-XII intact Psychiatric exam: Present: normal affect, normal mood Skin exam: Present: warm, dry, intact, normal color. Absent: rash Course Vital Signs 07/22/20 07/22/20 07/22/20 07:47 08:18 08:45 Temperature 97.6 F Pulse Rate 65 74 68 Respiratory 18 18 18 Rate Blood Pressure 200/118 172/97 149/94 O2 Sat by Pulse 99 97 97 Oximetry EKG Findings - EKG Results: EKG: interpreted by SARAH (History of fibrillation rate of 83 QRS 110 daily since QTC 414/[address] configuration) Medical Decision Making - Medical Decision Making I did discuss findings with the patient she is feeling improved at this time patient's pain is improved she will be admitted with consultation by Dr. Aguilar. Case discussed with Dr. Cox - Lab Data Result diagrams: 07/22/20 08:02 07/22/20 08:02 Lab Results 07/22/20 07/22/20 07/22/20 Range/Units 08:02 08:02 08:02 WBC 5.4 (3.8-10.6) k/uL RBC 4.52 (3.80-5.40) m/uL Hgb 14.2 (11.4-16.0) gm/dL Hct 41.1 (34.0-46.0) % MCV 91.0 (80.0-100.0) fL MCH 31.3 (25.0-35.0) pg MCHC 34.4 (31.0-37.0) g/dL RDW 12.3 (11.5-15.5) % Plt Count 185 (150-450) k/uL MPV 8.5 Neutrophils % 59 % Lymphocytes % 30 % Monocytes % 7 % Eosinophils % 2 % Basophils % 1 % Neutrophils # 3.2 (1.3-7.7) k/uL Lymphocytes # 1.6 (1.0-4.8) k/uL Monocytes # 0.4 (0-1.0) k/uL Eosinophils # 0.1 (0-0.7) k/uL Basophils # 0.1 (0-0.2) k/uL PT 10.4 (9.0-12.0) sec INR 1.0 (<1.2) APTT 25.0 (22.0-30.0) sec Sodium 130 L (137-145) mmol/L Potassium 3.4 L (3.5-5.1) mmol/L Chloride 97 L (98-107) mmol/L Carbon Dioxide 29 (22-30) mmol/L Anion Gap 4 mmol/L BUN 12 (7-17) mg/dL Creatinine 0.72 (0.52-1.04) mg/dL Est GFR (CKD-EPI)AfAm >90 (>60 ml/min/1.73 sqM) Est GFR (CKD-EPI)NonAf 88 (>60 ml/min/1.73 sqM) Glucose 98 (74-99) mg/dL Calcium 8.8 (8.4-10.2) mg/dL Magnesium 1.8 (1.6-2.3) mg/dL Total Bilirubin 1.6 H (0.2-1.3) mg/dL AST 21 (14-36) U/L ALT 13 (4-34) U/L Alkaline Phosphatase 55 (38-126) U/L Creatine Kinase 47 (30-135) U/L Troponin I (0.000-0.034) ng/mL Total Protein 7.4 (6.3-8.2) g/dL Albumin 4.2 (3.5-5.0) g/dL Lipase 105 (23-300) U/L TSH 2.530 (0.465-4.680) mIU/L 07/22/20 Range/Units 08:02 WBC (3.8-10.6) k/uL RBC (3.80-5.40) m/uL Hgb (11.4-16.0) gm/dL Hct (34.0-46.0) % MCV (80.0-100.0) fL MCH (25.0-35.0) pg MCHC (31.0-37.0) g/dL RDW (11.5-15.5) % Plt Count (150-450) k/uL MPV Neutrophils % % Lymphocytes % % Monocytes % % Eosinophils % % Basophils % % Neutrophils # (1.3-7.7) k/uL Lymphocytes # (1.0-4.8) k/uL Monocytes # (0-1.0) k/uL Eosinophils # (0-0.7) k/uL Basophils # (0-0.2) k/uL PT (9.0-12.0) sec INR (<1.2) APTT (22.0-30.0) sec Sodium (137-145) mmol/L Potassium (3.5-5.1) mmol/L Chloride (98-107) mmol/L Carbon Dioxide (22-30) mmol/L Anion Gap mmol/L BUN (7-17) mg/dL Creatinine (0.52-1.04) mg/dL Est GFR (CKD-EPI)AfAm (>60 ml/min/1.73 sqM) Est GFR (CKD-EPI)NonAf (>60 ml/min/1.73 sqM) Glucose (74-99) mg/dL Calcium (8.4-10.2) mg/dL Magnesium (1.6-2.3) mg/dL Total Bilirubin (0.2-1.3) mg/dL AST (14-36) U/L ALT (4-34) U/L Alkaline Phosphatase (38-126) U/L Creatine Kinase (30-135) U/L Troponin I <0.012 (0.000-0.034) ng/mL Total Protein (6.3-8.2) g/dL Albumin (3.5-5.0) g/dL Lipase (23-300) U/L TSH (0.465-4.680) mIU/L - Radiology Data Radiology results: report reviewed (Imaging reviewed no acute findings.), image reviewed Disposition Clinical Impression: Atrial fibrillation, Chest pain Disposition: ADMITTED IP TO THIS [facility] Condition: Fair Referrals: Carol Curtis MD [Primary Care Provider] - 1-2 days
[2020-07-22 08:29] LABS: Basophils # (A) 0.1 k/uL (0-0.2); Basophils % (A) 1 %; Eosinophils # (A) 0.1 k/uL (0-0.7); Eosinophils % (A) 2 %; HCT 41.1 % (34.0-46.0); HGB 14.2 gm/dL (11.4-16.0); Lymphocytes # (A) 1.6 k/uL (1.0-4.8); Lymphocytes % (A) 30 %; MCH 31.3 pg (25.0-35.0); MCHC 34.4 g/dL (31.0-37.0); Mean Platelet Volume 8.5; Monocytes # (A) 0.4 k/uL (0-1.0); Monocytes % (A) 7 %; Neutrophils # (A) 3.2 k/uL (1.3-7.7); Neutrophils % (A) 59 %; Platelet Count 185 k/uL (150-450); RBC 4.52 m/uL (3.80-5.40); RDW 12.3 % (11.5-15.5); WBC 5.4 k/uL (3.8-10.6)
[2020-07-22 08:43] LABS: Prothrombin Time 10.4 sec (9.0-12.0)
--- NOTE | 2020-07-22 08:44 | XR ---
EXAMINATION TYPE: XR chest 2V DATE OF EXAM: 07/22/2020 COMPARISON: Chest x-ray March 03, 2018. HISTORY: Atrial fibrillation. TECHNIQUE: Frontal and lateral views of the chest are obtained. FINDINGS: There is chronic parenchymal change bilaterally without suspicious new focal air space opa city, pleural effusion, or pneumothorax seen. The cardiac silhouette size remains enlarged with athe rosclerotic and ectatic thoracic aorta. The osseous structures remain intact. IMPRESSION: Chronic changes and cardiomegaly without acute pulmonary process. No significant change from prior.
[2020-07-22 08:55] LABS: ALT 13 U/L (4-34); AST 21 U/L (14-36); African American GFR (CKD) >90 (>60 ml/min/1.73 sqM); Albumin 4.2 g/dL (3.5-5.0); Alkaline Phosphatase 55 U/L (38-126); Anion Gap 4 mmol/L; Blood Urea Nitrogen 12 mg/dL (7-17); Calcium 8.8 mg/dL (8.4-10.2); Carbon Dioxide 29 mmol/L (22-30); Chloride 97 mmol/L (98-107); Creatine Kinase 47 U/L (30-135); Glucose 98 mg/dL (74-99); Lipase 105 U/L (23-300); Magnesium 1.8 mg/dL (1.6-2.3); Non-African American GFR(CKD) 88 (>60 ml/min/1.73 sqM); Potassium 3.4 mmol/L (3.5-5.1); Sodium 130 mmol/L (137-145); Total Bilirubin 1.6 mg/dL (0.2-1.3); Total Protein 7.4 g/dL (6.3-8.2)
[2020-07-22] MEDS ORDERED: POTASSIUM CHLORIDE ER 20 MEQ TAB.ER PO STA (09:34)
[2020-07-22] MEDS ORDERED: POTASSIUM CHLORIDE 20 MEQ in WATER FOR INJECTION 1 100ML.BAG IVPB STA (09:34)
[2020-07-22] MEDS ORDERED: NITROGLYCERIN SL TABS 0.4 MG TAB SUBLINGUAL PRN (09:42)
[2020-07-22] MEDS ORDERED: AMIODARONE 100 MG TAB PO SCH (09:45)
[2020-07-22] MEDS: SODIUM CHLORIDE 0.9% 1,000 ML IV SCH ×2 (09:55→22:27)
[2020-07-22] MEDS ORDERED: TRIAMTERENE-HCTZ 37.5-25MG 1 EACH CAP PO ONE (12:00)
[2020-07-22] MEDS ORDERED: lisinopriL 20 MG TAB PO ONE (12:00)
[2020-07-22] MEDS ORDERED: METOPROLOL TARTRATE 25 MG TAB PO ONE (12:00)
--- NOTE | 2020-07-22 12:57 | CONS ---
CONSULTATION Mrs. Cervantes is a 65-year-old female with a prior history of atrial fibrillation status post cardioversion in 2018. She has been followed by Dr. Aguilar on a regular basis and for the last 6-8 weeks has not been feeling well and felt palpitations. She was seen by Dr. Aguilar on July 17. Because of the way she felt at that time, a transthoracic echocardiogram was performed that revealed an ejection fraction of 50% to 55% with moderate aortic and mild mitral and tricuspid regurgitation. The patient was being scheduled to undergo elective cardioversion as an outpatient. She was feeling worse at her home, was fatigued and had palpitation. She did not have any significant chest pain or significant change in her breathing. In view of that, she came into the emergency room and was subsequently admitted. The patient denies any PND, orthopnea, or peripheral edema. She has no syncope. She has no documented history of obstructive coronary artery disease. Her coronary risk factors are remarkable for hypertension. She is nondiabetic, nonsmoker. MEDICATION: Include amiodarone 100 mg twice a day, Eliquis 5 mg twice a day, Neurontin, Synthroid, Lopressor 25 mg twice a day, Dyazide, apresoline 25 mg twice a day, lisinopril 20 mg twice a day. REVIEW OF SYSTEMS: RESPIRATORY SYSTEM: She has no recent wheezing or cough. No history of documented obstructive lung disease. GI SYSTEM: No recent GI bleeding. No peptic ulcer disease. SYSTEM: No dysuria or hematuria. NERVOUS SYSTEM: No stroke or seizure. PHYSICAL EXAMINATION: Blood pressure 160/110 with a heart rate in the 80s. HEAD: Normocephalic. Eyes sclerae anicteric. NECK: Good carotid upstroke, no bruit, no jugular venous distention. LUNGS: Clear to auscultation. HEART: Irregularly irregular, S1, S2. No S3 with systolic murmur at the base. No diastolic murmur. No rub. ABDOMEN: Soft and nontender. Positive bowel sounds. No organomegaly. EXTREMITIES: No edema. Intact pulses. LAB DATA: Lab data revealed a troponin less than 0.012. BUN and creatinine of 12 and 0.7, hemoglobin 14.2. EKG revealed atrial fibrillation. IMPRESSION: 1. Atrial fibrillation, recurrent, symptomatic. 2. History of hypertension. RECOMMENDATION: Patient will undergo elective cardioversion tomorrow. In the meantime, I will increase the dose of hydralazine and amiodarone and depending on her progress, further recommendation will be made. Thank you for this consult. We will follow with you. MMLOWELLL / IJN: [id number] /
--- NOTE | 2020-07-22 15:40 | HP ---
HISTORY AND PHYSICAL DATE OF SERVICE: 07/22/2120 CHIEF COMPLAINTS: Atrial fibrillation and chest pain. HISTORY OF PRESENT ILLNESS: This 65-year-old woman with a past medical history of atrial fibrillation, hypertension, history of DJD, history of hypothyroidism, being followed by Dr. Curtis in the outpatient setting, was complaining of atrial fibrillation throughout night, but subsequently patient had palpitations and also pain in the left side of the chest radiating to the back, 4/10 in severity. The pain was also upper quadrant. Patient came to [facility] and was admitted for further evaluation and treatment. The patient had a 2D echo and was thought to have a leaky valve during the most recent 2D echo. Previously the patient had a SHAHEEN also. There There is no history of any fever, rigor or chills. No history of headache, loss of consciousness, seizures at this time PAST MEDICAL HISTORY: Atrial fibrillation, hypertension, DJD, history of hypothyroidism. HOME MEDICATIONS: Lisinopril, hydralazine, Dyazide, Lopressor, Synthroid, Neurontin, Eliquis, Cordarone. ALLERGIES: PENICILLIN and STATINS. FAMILY HISTORY: History of cancer, diabetes mellitus, colon cancer, uterine cancer. SOCIAL HISTORY: No history of smoking. No history of alcohol intake. REVIEW OF SYSTEMS: ENT: Diminished hearing. Diminished vision. CARDIOVASCULAR SYSTEM: As mentioned earlier. RESPIRATORY SYSTEM: As mentioned earlier. GI: As mentioned earlier. : No dysuria or retention. NERVOUS SYSTEM: No numbness, weakness. ALLERGY/IMMUNOLOGY: No asthma, hayfever. MUSCULOSKELETAL: As mentioned earlier. HEMATOLOGY/ONCOLOGY: No history of anemia. ENDOCRINE: As mentioned earlier. CONSTITUTIONAL: As mentioned earlier. DERMATOLOGY: Negative. RHEUMATOLOGY: Negative. PSYCHIATRY: As mentioned earlier. PHYSICAL EXAMINATION: Patient alert and oriented x3. Pulse 59, blood pressure 137/75, respiration 18, temperature 98.1, pulse ox 94% on room air. HEENT: Conjunctivae normal. Oral mucosa moist. NECK: No jugular venous distention. No carotid bruit. No lymph node enlargement. CARDIOVASCULAR SYSTEM: S1, S2 muffled. RESPIRATORY SYSTEM: Breath sounds diminished at the bases. Scattered rhonchi. ABDOMEN: Soft. Minimal diffuse tenderness. LEGS: No edema. No swelling. NERVOUS SYSTEM: No focal deficit. LABS: EKG shows ST changes, atrial fibrillation. CBC within normal limits. Sodium , potassium 3.5. ASSESSMENT: 1. Left-sided chest pain, possible unstable angina. 2. Atrial fibrillation. 3. Hyponatremia. 4. Hypokalemia. 5. Elevated total bilirubin. 6. History of hypertension. 7. History of degenerative joint disease. 8. History of hypothyroidism. 9. History of enlarged heart. 10.History of transesophageal echocardiogram and cardioversion previously. RECOMMENDATIONS AND DISCUSSION: In this 65-year-old woman who presented with multiple complex medical issues, we will monitor the patient closely, continue the current medications, continue with symptomatic treatment. Otherwise, cardiology consultation. Atrial fibrillation rate is controlled at this time. Elective cardioversion is being planned by Cardiology. The doses of hydralazine and amiodarone have been adjusted by Cardiology. Prognosis guarded because of multiple complex medical issues. Further recommendations to follow. Discussed with the patient. Also recommend close followup with Dr. Curtis after discharge. A copy of this dictation is being forwarded to Dr. Curtis, who is the primary physician. MMODL / IJN: [id number] / NATALIIA
[2020-07-22] MEDS: hydrALAZINE HCL 25 MG TAB PO SCH (20:24)
[2020-07-22] MEDS: AMIODARONE 200 MG TAB PO SCH (20:24)
[2020-07-22] MEDS: GABAPENTIN 300 MG CAP PO SCH (20:24)
[2020-07-22] MEDS: lisinopriL 20 MG TAB PO SCH (20:25)
[2020-07-22] MEDS: METOPROLOL TARTRATE 25 MG TAB PO SCH (20:25)
[2020-07-22] MEDS: APIXABAN 5 MG TAB PO SCH (20:25)
[2020-07-23 06:47] LABS: African American GFR (CKD) >90 (>60 ml/min/1.73 sqM); Anion Gap 5 mmol/L; Blood Urea Nitrogen 10 mg/dL (7-17); Calcium 8.9 mg/dL (8.4-10.2); Carbon Dioxide 31 mmol/L (22-30); Chloride 100 mmol/L (98-107); Cholesterol 176 mg/dL (<200); Glucose 88 mg/dL (74-99); HDL Cholesterol 34 mg/dL (40-60); LDL Cholesterol,Calculated 105 mg/dL (0-99); Non-African American GFR(CKD) 90 (>60 ml/min/1.73 sqM); Potassium 4.3 mmol/L (3.5-5.1); Sodium 136 mmol/L (137-145); Triglycerides 183 mg/dL (<150)
[2020-07-23] MEDS: AMIODARONE 200 MG TAB PO SCH ×2 (08:14→20:07)
[2020-07-23] MEDS: hydrALAZINE HCL 25 MG TAB PO SCH ×2 (08:14→20:07)
[2020-07-23] MEDS: APIXABAN 5 MG TAB PO SCH ×2 (08:14→20:07)
[2020-07-23] MEDS: METOPROLOL TARTRATE 25 MG TAB PO SCH (08:14)
[2020-07-23] MEDS: GABAPENTIN 300 MG CAP PO SCH ×2 (08:15→20:07)
[2020-07-23] MEDS: TRIAMTERENE-HCTZ 37.5-25MG 1 EACH CAP PO SCH (08:15)
[2020-07-23] MEDS: lisinopriL 20 MG TAB PO SCH ×2 (08:15→20:07)
[2020-07-23] MEDS: SODIUM CHLORIDE 0.9% 1,000 ML IV SCH ×3 (08:16→22:23)
[2020-07-23 10:22] LABS: Basophils # (A) 0.04 X 10*3/uL (0.00-0.10); Basophils % (A) 0.8 %; Eosinophils # (A) 0.11 X 10*3/uL (0.04-0.35); Eosinophils % (A) 2.3 %; HCT 38.2 % (37.2-46.3); HGB 12.8 g/dL (12.0-15.0); Lymphocytes # (A) 1.81 X 10*3/uL (0.90-5.00); Lymphocytes % (A) 37.6 %; MCH 31.1 pg (27.0-32.0); MCHC 33.5 g/dL (32.0-37.0); MCV 92.9 fL (80.0-97.0); Mean Platelet Volume 11.9 fL (9.5-12.2); Monocytes # (A) 0.42 X 10*3/uL (0.20-1.00); Monocytes % (A) 8.7 %; Neutrophils # (A) 2.42 X 10*3/uL (1.80-7.70); Neutrophils % (A) 50.4 %; Platelet Count 193 X 10*3/uL (140-440); RBC 4.11 X 10*6/uL (4.10-5.20); RDW 12.9 % (11.5-14.5); WBC 4.81 X 10*3/uL (4.50-10.00)
[2020-07-23] MEDS ORDERED: PROPOFOL 10 MG/ML 20 ML VIAL IV ONE (10:49)
[2020-07-23] MEDS ORDERED: MIDAZOLAM 2 MG/2 ML VIAL ONE (10:49)
[2020-07-23] MEDS ORDERED: fentaNYL (PF) 50 MCG/ML 2 ML AMP ONE (10:49)
[2020-07-23] MEDS ORDERED: IV FLUID CONTINUATION 1,000 ML IV ONE (10:56)
--- NOTE | 2020-07-23 11:36 | P.TEE ---
Date of Procedure: 07/23/20 Preoperative Diagnosis: Atrial fibrillation Postoperative Diagnosis: Successful conversion to sinus rhythm. No clot in left atrial appendage Procedure(s) Performed: SHAHEEN followed by cardioversion Description of Procedure(s): INDICATION: This is a 65-year-old female with history of atrial fibrillation was been maintaining sinus rhythm for a long time, developed of recurrence of atrial fibrillation recently associated with symptoms of fatigue and shortness of breath. Patient is advised to have SHAHEEN cardioversion CONSENT: Verbal consent was obtained from patient PROCEDURE: Patient was brought to the lab in a fasting state. Patient was given anesthesia by department of anesthesia. The throat was sprayed with Hurricaine. A lubricated Omni probe was introduced into the oropharynx and advanced into the esophagus. Multiple views were obtained both from the esophagus and stomach. Patient tolerated the procedure well. Patient was not found to have any clot in the left atrial appendage. She went on to have cardioversion afterwards FINDINGS: The aortic valve is tricuspid. The aortic root and and ascending aorta were dilated, measuring about 4.1 cm. There is mild aortic regurgitation. The mitral valve showed mild regurgitation. The left atrial appendage appeared to be free of any clot. The interatrial septum showed presence of PFO with spontaneous a [id number] shunt. Injection of the contrast bubble showed crossing of the bubbles confirming presence of PFO. Left ventricle function appeared to be fair. There is mild tricuspid regurgitation. The aortic valve did not show any significant plaque IMPRESSION: #1. No clot in left atrial appendage. #2. PFO #3. Dilated aortic root and also ascending aorta measuring about 3.8-4.1 cm #4. Preserved LV function. #5. Mild aortic and mitral regurgitation PLAN: Proceed with cardioversion.
--- NOTE | 2020-07-23 11:38 | P.PCN ---
Date of Procedure: 07/23/20 Preoperative Diagnosis: Atrial fibrillation Postoperative Diagnosis: Successful conversion to sinus rhythm Procedure(s) Performed: SHAHEEN followed by cardioversion Description of Procedure: Patient had a SHAHEEN and was not found to have a clot in the left atrial appendage. Anterior-posterior paddles were applied. Patient was given anesthesia by department of anesthesia. She, shock of 200 J, followed by 300 J was applied. Patient converted back to sinus rhythm. Slightly bradycardic. No immediate complications. Final impression: #1. Successful cardioversion #2. Mild bradycardia. Plan: Hold metoprolol. Continue rest of the medication. Transferred to medical floor for further observation
[2020-07-23] MEDS: LEVOTHYROXINE 88 MCG TAB PO SCH (12:27)
--- NOTE | 2020-07-23 17:28 | PN ---
PROGRESS NOTE DATE OF SERVICE: 07/23/2020 This 65-year-old woman who was admitted with left-sided chest pain also had atrial fibrillation. The patient was cardioverted today. The patient also underwent a SHAHEEN which showed no clot in the atrial appendage. Dilated aortic root was noted. Mild aortic and mitral regurgitation was also noted. No chest pain. Mild palpitations. No fever. PHYSICAL EXAMINATION: Alert and oriented x3. Pulse 49, blood pressure 147/79, respiration 18, temperature normal, pulse ox 93% on room air. HEENT: Conjunctivae normal. NECK: No jugular venous distention. CARDIOVASCULAR SYSTEM: S1, S2 bradycardic. RESPIRATORY SYSTEM: Breath sounds diminished at the bases. No rhonchi. No crackles. ABDOMEN: Soft. NERVOUS SYSTEM: No focal deficit. LABS: Sodium 136. Triglycerides 193, LDL is 105. ASSESSMENT: 1. Left-sided chest pain, possible unstable angina. 2. Atrial fibrillation, status post transesophageal echocardiogram and cardioversion. 3. Sinus bradycardia. 4. Dilated aortic root; also ascending aorta measuring about 3.8 to 4.1 cm on transesophageal echocardiogram. 5. Hyponatremia. 6. Hypokalemia. 7. Elevated total bilirubin. 8. History of hypertension. 9. History of degenerative joint disease. 10.Hypothyroidism. 11.History of enlarged heart. 12.History of transesophageal echocardiogram and cardioversion previously. RECOMMENDATIONS AND DISCUSSION: I recommend to continue current medications, continue with the monitoring, symptomatic treatment. Closely follow with Cardiology. The patient currently has sinus bradycardia. Otherwise, TSH is normal. Further recommendations to follow. MMODL / IJN: [id number] /
[2020-07-24 03:37] VITALS: RESP 18
[2020-07-24] MEDS: LEVOTHYROXINE 88 MCG TAB PO SCH (05:39)
[2020-07-24] MEDS: GABAPENTIN 300 MG CAP PO SCH (07:59)
[2020-07-24] MEDS: hydrALAZINE HCL 25 MG TAB PO SCH (07:59)
[2020-07-24] MEDS: lisinopriL 20 MG TAB PO SCH (08:00)
[2020-07-24] MEDS: AMIODARONE 200 MG TAB PO SCH (08:00)
[2020-07-24] MEDS: APIXABAN 5 MG TAB PO SCH (08:00)
[2020-07-24] MEDS: TRIAMTERENE-HCTZ 37.5-25MG 1 EACH CAP PO SCH (08:00)
[2020-07-24 08:11] VITALS: PULSE 54; TEMP 98.1
[2020-07-24] MEDS ORDERED: hydrALAZINE HCL 25 MG TAB PO SCH (09:00)
--- NOTE | 2020-07-24 09:45 | P.PN ---
Subjective This is a pleasant 65-year-old female past medical history significant for paroxysmal atrial fibrillation, hypertension and hypothyroidism. She follows in the office with Dr. Dr. Aguilar. She is status post cardioversion yesterday. Since that time she has been maintaining sinus mechanism on the monitor. She is seen and examined sitting up in bed eating breakfast. She states overnight she felt particularly restless and felt as though her heart was "rolling". Telemetry tracings reviewed and reveal she was in sinus mechanism at that time. She has some redness on her anterior chest where the defibrillator patches were placed. Her blood pressure remains elevated 184/97 with a heart rate of 54. Currently maintained on amiodarone 200 mg twice a day, Eliquis 5 mg twice a day, hydralazine 25 mg twice a day, lisinopril 20 mg twice a day and diazide 37.5/25 mg daily. GENERAL: Well-appearing, well-nourished and in no acute distress. NECK: Supple without JVD or thyromegaly. LUNGS: Breath sounds clear to auscultation bilaterally. Respiration equal and unlabored. No wheezes, rales or rhonchi. HEART: Regular rate and rhythm with systolic ejection murmur at the base, no rubs or gallops. S1 and S2 heard. EXTREMITIES: Normal range of motion, no edema. No clubbing or cyanosis. Peripheral pulses intact. ASSESSMENT Paroxysmal atrial fibrillation status post cardioversion maintaining sinus mechanism Hypertension PLAN Increase hydralazine to 50 mg twice a day. Increase activity and ambulation in the halls. Apply Silvadene cream to the anterior chest wall. Continue eliquis without interruption. She can be discharged this afternoon if she continues to maintain sinus rhythm. Further outpatient blood pressure management with Dr. Dr. Aguilar. Follow-up in the office in 1-week. Nurse Practitioner note has been reviewed, I agree with a documented findings and plan of care. Patient was seen and examined. Objective - Vital Signs Vital signs: Vital Signs Temp 98.1 F 07/24/20 08:10 Pulse 54 L 07/24/20 08:10 Resp 18 07/24/20 08:10 BP 184/97 07/24/20 08:10 Pulse Ox 96 07/24/20 08:10 Intake & Output 07/23/20 07/24/20 07/24/20 18:59 06:59 18:59 Intake Total 1100 160 Balance 1100 160 Intake: IV 600 Intake, IV Titration 160 Amount Sodium Chloride 0.9% 1, 160 000 ml @ 20 mls/hr IV . Q24H [facility] Rx#:[id number] Oral 500 Other: Voiding Method Toilet Toilet # Voids 3 2 - Labs CBC & Chem 7: 07/23/20 05:54 07/23/20 05:54
[2020-07-24] MEDS: SODIUM CHLORIDE 0.9% 1,000 ML IV SCH ×2 (10:18)
[2020-07-24 12:30] VITALS: BP 169/85
--- NOTE | 2020-07-24 12:44 | P.DS ---
Providers Date of admission: 07/22/20 09:51 Expected date of discharge: 07/24/20 Attending physician: Talya Cox Consults: 07/22/20 09:42 Consult Physician Urgent Consulting Provider: Ginny Aguilar Consult Reason/Comments: Chest pain, atrial fibrillation Do you want consulting provider notified?: Yes Primary care physician: Carol Curtis Hospital Course: Final diagnosis Left-sided chest pain, possible unstable angina Atrial fibrillation, status post transesophageal echocardiogram and cardioversion Sinus bradycardia Dilated aortic root also ascending aorta measuring about 3.8-4.1 cm on SHAHEEN Hyponatremia Hypokalemia Elevated total bilirubin History of hypertension History of degenerative joint disease hypothyroidism History of enlarged heart previous history of SHAHEEN and cardioversion Discharge disposition Patient is being discharged in stable condition with guarded prognosis to home. Patient will follow-up with Dr. Curtis in the outpatient setting upon discharge. Patient also instructed to follow-up with cardiology Dr. Aguilar as discussed and scheduled. otolaryngology teacher taken is greater than 35 minutes. Hospital course This is a 65-year-old female who was recently admitted with left-sided chest pain also atrial fibrillation and was being closely monitored. Cardiology following and patient underwent SHAHEEN with cardioversion yesterday. SHAHEEN was n egative for clots in the atrial appendage and cardioversion was successful. Patient does follow with cardiology in the outpatient setting and will continue to follow Dr. Aguilar in the office as scheduled. Patient continue to have elevated blood pressure which medications were adjusted and instructed to follow-up with primary care provider along with cardiology upon discharge. Patient also instructed to continue to monitor blood pressure and keep a diary for follow-up appointments. 07/24/2020 Patient is seen and evaluated in follow-up this morning with no acute overnight issues. Blood pressure slightly elevated and adjustments to her blood pressure medications have been made and maintaining sinus rhythm currently status post SHAHEEN with cardioversion. Patient instructed to follow-up with cardiology in the outpatient setting. Currently no reports of chest pain, shortness of breath, or palpitations. Patient is afebrile. No reports of nausea or vomiting and patient is tolerating diet. Patient will be discharged to home today. On exam vital signs are stable. Cardio S1, S2 are muffled. Respiratory shows diminished breath sounds at the bases with no wheezing or rhonchi noted. Abdomen is soft and nontender. Nervous system shows no focal deficits. Please refer to medication reconciliation sheet for a list of medications Patient Condition at Discharge: Fair Plan - Discharge Summary Discharge Rx Participant: No New Discharge Prescriptions: New hydrALAZINE HCL [Apresoline] 50 mg PO BID 30 Days #120 tab Amiodarone [Cordarone] 200 mg PO BID 30 Days #60 tab Continue Gabapentin [Neurontin] 300 mg PO BID Apixaban [Eliquis] 5 mg PO BID #60 tab Triamterene-Hctz 37.5-25Mg [Dyazide 37.5-25 Capsule] 1 cap PO DAILY lisinopriL 20 mg PO BID Levothyroxine Sodium [Synthroid] 175 mcg PO DAILY Discontinued Metoprolol Tartrate [Lopressor] 25 mg PO BID hydrALAZINE HCL [Apresoline] 25 mg PO BID Amiodarone [Cordarone] 100 mg PO BID Discharge Medication List Gabapentin [Neurontin] 300 mg PO BID 08/15/17 [History] Apixaban [Eliquis] 5 mg PO BID #60 tab 08/18/17 [Rx] Levothyroxine Sodium [Synthroid] 175 mcg PO DAILY 07/22/20 [History] Triamterene-Hctz 37.5-25Mg [Dyazide 37.5-25 Capsule] 1 cap PO DAILY 07/22/20 [History] lisinopriL 20 mg PO BID 07/22/20 [History] Amiodarone [Cordarone] 200 mg PO BID 30 Days #60 tab 07/24/20 [Rx] hydrALAZINE HCL [Apresoline] 50 mg PO BID 30 Days #120 tab 07/24/20 [Rx] Follow up Appointment(s)/Referral(s): Carol Curtis MD [Primary Care Provider] - 1-2 days Ginny Aguilar MD [Family Provider] - 08/14/20 3:15 pm (Appointment made at the [facility] ) Patient Instructions/Handouts: Amiodarone (By mouth), Hydralazine (By mouth), A-fib (Atrial Fibrillation) (DC) Activity/Diet/Wound Care/Special Instructions: Discharge once cleared by cardiology Activity Limited until follow-up Follow-up with primary care provider upon discharge Continue with current medications Follow-up with cardiology in one week Discharge Disposition: HOME SELF-CARE
== END 2020-07-24 14:10 | disposition home or self-care (01) ==
LOC: EC 07:44 → 6NMEDSUR 09:51
PROVIDERS: ADMIT Hospitalist; ATTEND Hospitalist
DX: I48.0 Paroxysmal atrial fibrillation (principal); R07.89 Other chest pain; I11.9 Hypertensive heart disease without heart failure; E87.1 Hypo-osmolality and hyponatremia; E87.6 Hypokalemia; E80.7 Disorder of bilirubin metabolism, unspecified; R00.1 Bradycardia, unspecified; I77.810 Thoracic aortic ectasia; M16.0 Bilateral primary osteoarthritis of hip; I08.3 Combined rheumatic disorders of mitral, aortic and tricuspid valves; E03.9 Hypothyroidism, unspecified; Z20.822 Contact with and (suspected) exposure to COVID-19; Z79.890 Hormone replacement therapy; Z79.899 Other long term (current) drug therapy; Z88.0 Allergy status to penicillin; Z88.8 Allergy status to other drugs, medicaments and biological substances; Z98.42 Cataract extraction status, left eye; Z98.41 Cataract extraction status, right eye; Z87.81 Personal history of (healed) traumatic fracture; Z80.0 Family history of malignant neoplasm of digestive organs; Z80.49 Family history of malignant neoplasm of other genital organs; Z83.3 Family history of diabetes mellitus; Z83.79 Family history of other diseases of the digestive system
CPT/HCPCS: 96361 ×2; 96365 ×2; 96366 ×2; 99285 ×2; 93005 ×4; 36415; 93312; 93320; 93325; 92960; 80061; 80053; 80048; 82550; 83690; 83735; 84443; 84484; 85025 ×2; 85610; 85730; 87636; 71046; G0378 ×3; J2250; J3480; J3010; J2704

== ENCOUNTER → 2020-12-04 | Outpatient (CLI) | payer MEDICARE ==
--- NOTE | 2020-12-06 14:36 | MM ---
Reason for exam: screening (asymptomatic). Last mammogram was performed 1 year and 11 months ago. History: Patient is postmenopausal and has history of other cancer at age 65. Physical Findings: A clinical breast exam by your physician is recommended on an annual basis and results should be correlated with mammographic findings. MG 3D Screening Mammo W/Cad Bilateral CC and MLO view(s) were taken. Prior study comparison: January 18, 2019, bilateral MG 3d screening mammo w/cad. September 20, 2017, bilateral MG screening mammo w CAD. September 06, 2013, bilateral MG screening mammo w CAD. There are scattered fibroglandular densities. There is chronic nodularity in the right breast medially and laterally. No significant changes when compared with prior studies. ASSESSMENT: Benign, BI-RAD 2 RECOMMENDATION: Routine screening mammogram of both breasts in 1 year.
== END | disposition home or self-care (01) ==
LOC: RADMAMWWP 13:58
PROVIDERS: ATTEND Internal Medicine
DX: Z12.31 Encounter for screening mammogram for malignant neoplasm of breast (principal); Z78.0 Asymptomatic menopausal state; Z85.9 Personal history of malignant neoplasm, unspecified
CPT/HCPCS: 77063; 77067

== ENCOUNTER 2021-02-04 21:38 | Observation (INO) | payer MEDICARE ==
[2021-02-04 22:33] LABS: Basophils # (A) 0.1 k/uL (0-0.2); Basophils % (A) 1 %; Eosinophils % (A) 1 %; HCT 37.7 % (34.0-46.0); HGB 13.2 gm/dL (11.4-16.0); Lymphocytes # (A) 1.8 k/uL (1.0-4.8); Lymphocytes % (A) 29 %; MCH 31.9 pg (25.0-35.0); MCHC 35.1 g/dL (31.0-37.0); MCV 90.9 fL (80.0-100.0); Mean Platelet Volume 8.4; Monocytes # (A) 0.4 k/uL (0-1.0); Monocytes % (A) 7 %; Neutrophils # (A) 3.8 k/uL (1.3-7.7); Neutrophils % (A) 62 %; Platelet Count 199 k/uL (150-450); RBC 4.15 m/uL (3.80-5.40); RDW 11.8 % (11.5-15.5); WBC 6.2 k/uL (3.8-10.6)
[2021-02-04 22:38] LABS: INR 1.1 (<1.2); Prothrombin Time 11.2 sec (9.0-12.0)
[2021-02-04 22:43] LABS: ALT 18 U/L (4-34); AST 20 U/L (14-36); African American GFR (CKD) >90 (>60 ml/min/1.73 sqM); Albumin 4.1 g/dL (3.5-5.0); Alkaline Phosphatase 72 U/L (38-126); Anion Gap 10 mmol/L; Blood Urea Nitrogen 14 mg/dL (7-17); Calcium 9.4 mg/dL (8.4-10.2); Carbon Dioxide 24 mmol/L (22-30); Chloride 95 mmol/L (98-107); Glucose 98 mg/dL (74-99); Non-African American GFR(CKD) >90 (>60 ml/min/1.73 sqM); Potassium 3.5 mmol/L (3.5-5.1); Sodium 129 mmol/L (137-145); Total Bilirubin 0.7 mg/dL (0.2-1.3); Total Protein 7.1 g/dL (6.3-8.2)
--- NOTE | 2021-02-04 22:59 | ED ---
Dizziness HPI - General Chief Complaint: Dizziness Stated Complaint: Light headed, BP High Time Seen by Provider: 02/04/21 22:32 Source: patient Mode of arrival: wheelchair Limitations: no limitations - Related Data Home Medications Medication Instructions Recorded Confirmed Gabapentin [Neurontin] 300 mg PO BID 08/15/17 02/04/21 Levothyroxine Sodium [Synthroid] 175 mcg PO DAILY 07/22/20 02/04/21 Triamterene-Hctz 37.5-25Mg 1 cap PO DAILY 07/22/20 02/04/21 [Dyazide 37.5-25 Capsule] lisinopriL 20 mg PO BID 07/22/20 02/04/21 Acetaminophen Tab [Tylenol Tab] 500 mg PO Q6H PRN 02/04/21 02/04/21 Amiodarone [Cordarone] 200 mg PO DAILY 02/04/21 02/04/21 Carboxymethylcellulose Sodium 1 drop BOTH EYES QID PRN 02/04/21 02/04/21 [Refresh Tears] Previous Rx's Medication Instructions Recorded Apixaban [Eliquis] 5 mg PO BID #60 tab 08/18/17 hydrALAZINE HCL [Apresoline] 50 mg PO BID 30 Days #120 tab 07/24/20 Allergies Allergy/AdvReac Type Severity Reaction Status Date / Time Penicillins Allergy Rash/Hives Verified 02/04/21 23:39 Jzdmbvm-Snc-Qwp Reductase AdvReac Right Side Verified 02/04/21 23:39 Inhibitor Numbness & Muscle Pain Review of Systems ROS Statement: Those systems with pertinent positive or pertinent negative responses have been documented in the HPI. ROS Other: All systems not noted in ROS Statement are negative. Past Medical History Past Medical History: Atrial Fibrillation, Hypertension, Osteoarthritis (OA), Thyroid Disorder Additional Past Medical History / Comment(s): Afib with RVR, arthritis es pecially in hips, hypothyroid, past L arm fracture/casted, en;arged heart History of Any Multi-Drug Resistant Organisms: None Reported Past Surgical History: No Surgical Hx Reported Additional Past Surgical History / Comment(s): 08/2017 SHAHEEN/cardioversion, bilateral laser eye surgery for cataracts; colonoscopy-normal Past Anesthesia/Blood Transfusion Reactions: No Reported Reaction Additional Past Anesthesia/Blood Transfusion Reaction / Comment(s): pt stated at age 23 had a misscarriage- received blood transfusion0 no reaction. 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 ] Respiratory 19 18 Rate Blood Pressure 186/96 139/89 O2 Sat by Pulse 98 96 Oximetry EKG Findings - EKG Comments: EKG Findings:: EKG shows sinus bradycardia 59 NM 218 QRS 14 QTC 433 Medical Decision Making - Lab Data Result diagrams: 02/04/21 22:25 02/04/21 22:25 Lab Results 02/04/21 02/04/21 02/04/21 Range/Units 22:25 22:25 22:25 WBC 6.2 (3.8-10.6) k/uL RBC 4.15 (3.80-5.40) m/uL Hgb 13.2 (11.4-16.0) gm/dL Hct 37.7 (34.0-46.0) % MCV 90.9 (80.0-100.0) fL MCH 31.9 (25.0-35.0) pg MCHC 35.1 (31.0-37.0) g/dL RDW 11.8 (11.5-15.5) % Plt Count 199 (150-450) k/uL MPV 8.4 Neutrophils % 62 % Lymphocytes % 29 % Monocytes % 7 % Eosinophils % 1 % Basophils % 1 % Neutrophils # 3.8 (1.3-7.7) k/uL Lymphocytes # 1.8 (1.0-4.8) k/uL Monocytes # 0.4 (0-1.0) k/uL Eosinophils # 0.0 (0-0.7) k/uL Basophils # 0.1 (0-0.2) k/uL PT 11.2 (9.0-12.0) sec INR 1.1 (<1.2) Sodium 129 L (137-145) mmol/L Potassium 3.5 (3.5-5.1) mmol/L Chloride 95 L (98-107) mmol/L Carbon Dioxide 24 (22-30) mmol/L Anion Gap 10 mmol/L BUN 14 (7-17) mg/dL Creatinine 0.62 (0.52-1.04) mg/dL Est GFR (CKD-EPI)AfAm >90 (>60 ml/min/1.73 sqM) Est GFR (CKD-EPI)NonAf >90 (>60 ml/min/1.73 sqM) Glucose 98 (74-99) mg/dL Calcium 9.4 (8.4-10.2) mg/dL Total Bilirubin 0.7 (0.2-1.3) mg/dL AST 20 (14-36) U/L ALT 18 (4-34) U/L Alkaline Phosphatase 72 (38-126) U/L Troponin I (0.000-0.034) ng/mL Total Protein 7.1 (6.3-8.2) g/dL Albumin 4.1 (3.5-5.0) g/dL 02/04/21 Range/Units 22:25 WBC (3.8-10.6) k/uL RBC (3.80-5.40) m/uL Hgb (11.4-16.0) gm/dL Hct (34.0-46.0) % MCV (80.0-100.0) fL MCH (25.0-35.0) pg MCHC (31.0-37.0) g/dL RDW (11.5-15.5) % Plt Count (150-450) k/uL MPV Neutrophils % % Lymphocytes % % Monocytes % % Eosinophils % % Basophils % % Neutrophils # (1.3-7.7) k/uL Lymphocytes # (1.0-4.8) k/uL Monocytes # (0-1.0) k/uL Eosinophils # (0-0.7) k/uL Basophils # (0-0.2) k/uL PT (9.0-12.0) sec INR (<1.2) Sodium (137-145) mmol/L Potassium (3.5-5.1) mmol/L Chloride (98-107) mmol/L Carbon Dioxide (22-30) mmol/L Anion Gap mmol/L BUN (7-17) mg/dL Creatinine (0.52-1.04) mg/dL Est GFR (CKD-EPI)AfAm (>60 ml/min/1.73 sqM) Est GFR (CKD-EPI)NonAf (>60 ml/min/1.73 sqM) Glucose (74-99) mg/dL Calcium (8.4-10.2) mg/dL Total Bilirubin (0.2-1.3) mg/dL AST (14-36) U/L ALT (4-34) U/L Alkaline Phosphatase (38-126) U/L Troponin I <0.012 (0.000-0.034) ng/mL Total Protein (6.3-8.2) g/dL Albumin (3.5-5.0) g/dL Disposition Clinical Impression: Atrial fibrillation, Chest pain, Chronic atrial fibrillation, Hypertension, Bradycardia Disposition: ADMITTED IP TO THIS HOSP Condition: Good Is patient prescribed a controlled substance at d/c from ED?: No Referrals: Carol Curtis MD [Primary Care Provider] - 1-2 days
[2021-02-04] MEDS ORDERED: SODIUM CHLORIDE 0.9% 1,000 ML IV STA (23:16)
[2021-02-04] MEDS ORDERED: LABETALOL 5 MG/ML VIAL MDV IVP STA (23:16)
[2021-02-04] MEDS ORDERED: hydrALAZINE HCL 20 MG/ML 1 ML VIAL IVP STA (23:57)
[2021-02-05 00:14] VITALS: RESP 18
[2021-02-05] MEDS ORDERED: NITROGLYCERIN SL TABS 0.4 MG TAB SUBLINGUAL PRN (00:37)
[2021-02-05] MEDS ORDERED: ASPIRIN 81 MG PO STA (00:37)
[2021-02-05] MEDS ORDERED: LEVOTHYROXINE 100 MCG TAB PO SCH (06:30)
[2021-02-05 06:49] VITALS: TEMP 97.6
[2021-02-05] MEDS ORDERED: hydrALAZINE HCL 20 MG/ML 1 ML VIAL IVP STA (06:52)
[2021-02-05] MEDS ORDERED: LEVOTHYROXINE 88 MCG TAB PO SCH ×2 (07:15→09:00)
[2021-02-05] MEDS ORDERED: GABAPENTIN 300 MG CAP PO SCH (09:00)
[2021-02-05] MEDS ORDERED: AMIODARONE 200 MG TAB PO SCH (09:00)
[2021-02-05] MEDS ORDERED: amLODIPine 5 MG TAB PO SCH (09:00)
[2021-02-05] MEDS ORDERED: APIXABAN 5 MG TAB PO SCH (09:00)
[2021-02-05] MEDS ORDERED: TRIAMTERENE-HCTZ 37.5-25MG 1 EACH CAP PO SCH (09:00)
[2021-02-05] MEDS ORDERED: hydrALAZINE HCL 50 MG TAB PO SCH (09:00)
[2021-02-05] MEDS ORDERED: lisinopriL 20 MG TAB PO SCH (09:00)
[2021-02-05] MEDS: LEVOTHYROXINE 88 MCG TAB PO SCH ×3 (09:06→09:54)
[2021-02-05 10:20] VITALS: BP 126/73; PULSE 62
--- NOTE | 2021-02-05 13:55 | CONS ---
CONSULTATION Mrs. Cervantes is a 65-year-old female who presented to the emergency room because of feeling flushed and having an elevated blood pressure. Patient has been under increased amount of stress recently, going through a divorce. She follows on a regular basis with Dr. Aguilar and has a prior history of atrial fibrillation, status post cardioversion performed in June of 2020. At that time her transesophageal echocardiogram showed a preserved left ventricular size and systolic function with a patent foramen ovale. The patient has no prior history of documented obstructive coronary artery disease. She is reasonably active. She denies any change in her breathing. She has some discomfort in the chest that is predominantly related to the pounding she feels in the chest. She denies any dizziness or palpitations. No peripheral edema. No clear PND or orthopnea. Her coronary risk factors are remarkable for hypertension. She is nondiabetic, a nonsmoker, and she is in sinus mechanism on presentation to the emergency room. MEDICATION: Her medication at home included Eliquis 5 mg twice a day, Cordarone 200 mg daily, Neurontin, levothyroxine, Dyazide once a day, hydralazine 50 mg twice a day, lisinopril 20 mg twice a day. REVIEW OF SYSTEMS: RESPIRATORY SYSTEM: She has no recent wheezing. No cough. No history of documented obstructive lung disease. GI SYSTEM: No recent GI bleeding. No peptic ulcer disease. SYSTEM: No dysuria or hematuria. NERVOUS SYSTEM: No stroke or seizure. PHYSICAL EXAMINATION: This is a 65-year-old female, alert, oriented, in no apparent distress. Blood pressure running in the 180s with a heart rate in the 50s. HEAD: Normocephalic. EYES: Sclerae anicteric. NECK: Good carotid upstroke. No bruit. No jugular venous distention. LUNGS: Clear to auscultation. HEART: Regular rate and rhythm. S1, S2. No S3. No S4. No murmur or rub. ABDOMEN: Soft, nontender. Positive bowel sounds. No organomegaly. EXTREMITIES: No edema. Intact distal pulses. LAB DATA: Troponin less than 0.012 for 3 samples. BUN and creatinine 14 and 0.62. Hemoglobin of 13.2. EKG revealed first-degree AV block and normal axis with minor nonspecific ST-T wave changes. IMPRESSION: 1. Hypertension, elevated, probably worsened by the stress. 2. Atrial fibrillation, status post cardioversion. Remains in sinus mechanism. 3. Chest discomfort; atypical for ischemic heart disease. RECOMMENDATIONS: I will re-initiate treatment with her antihypertensive regimen. I will add to her regimen Norvasc 5 mg daily, increase her level activity. If she remains stable, I would expect she should be able to be discharged home today and followed as an outpatient with Dr. Aguilar. Thank you for this consult. Will follow with you. MMODL / IJN: [id number] /
--- NOTE | 2021-02-05 23:23 | P.HPIM ---
History of Present Illness H&P Date: 02/05/21 Chief Complaint: Chest tightness Patient is a 65-year-old female with a known history of hypertension, paroxysmal atrial fibrillation on anticoagulation with Eliquis, hypothyroidism and history of SHAHEEN/cardioversion x4, bilateral laser eye surgery presents to ER with complaints of chest discomfort and tightness feeling in the chest. No radiation of the pain. Denies any complaints of nausea or vomiting. No palpitations. No cough or sputum production. No orthopnea no PND. No diaphoresis. Patient states that she checked her blood pressure at home with SBP greater than 200 and DBP greater than 100 at home and came to ER for evaluation. Patient states that she has been under a lot of stress recently and is going through divorce. On admission blood pressure was 186/96 pulse ox 98% on room air. EKG showed sinus bradycardia with first-degree AV block. Laboratory data showed WBC 6.2 hemoglobin 13.2 and platelets 199 Sodium 139 potassium 3.5 chloride 95 bicarb is 24 and BUN 14 and creatinine 0.62 Troponin x3 - Coronavirus PCR not detected. Review of Systems Constitutional: Patient denies any fever or chills . No generalized weakness or weight loss. Abdomen: Patient denied nausea vomiting and diarrhea and abdominal pain. patient felt chest tightness at home Cardiovascular: Patient denies any chest pain or short of breath no p alpitations. Respiratory: patient denied any cough or sputum production. No shortness of breath Neurologic: Patient denied any numbness or tingling headache. Musculoskeletal: Patient denies any complaints of joint swelling or deformity. Skin: Negative Psychiatric: Negative Endocrine: No heat or cold intolerance. No recent weight gain. Genitourinary: No dysuria or hematuria. All other 14 point ROS negative except the above Past Medical History Past Medical History: Atrial Fibrillation, Hypertension, Osteoarthritis (OA), Thyroid Disorder Additional Past Medical History / Comment(s): Afib with RVR, arthritis especially in hips, hypothyroid, past L arm fracture/casted, en;arged heart History of Any Multi-Drug Resistant Organisms: None Reported Past Surgical History: No Surgical Hx Reported Additional Past Surgical History / Comment(s): 08/2017 SHAHEEN/cardioversion, bilateral laser eye surgery for cataracts; colonoscopy-normal Past Anesthesia/Blood Transfusion Reactions: No Reported Reaction Additional Past Anesthesia/Blood Transfusion Reaction / Comment(s): pt stated at age 23 had a misscarriage- received blood transfusion0 no reaction. Past Psychological History: No Psychological Hx Reported Smoking Status: Never smoker Past Alcohol Use History: None Reported Past Drug Use History: None Reported - Past Family History Mother Family Medical History: Cancer, Diabetes Mellitus Additional Family Medical History / Comment(s): colon ca, uterine ca Father Family Medical History: Liver Disease Sister(s) Family Medical History: Diabetes Mellitus Medications and Allergies Home Medications Medication Instructions Recorded Confirmed Type Gabapentin [Neurontin] 300 mg PO BID 08/15/17 02/04/21 History Apixaban [Eliquis] 5 mg PO BID #60 tab 08/18/17 02/04/21 Rx Levothyroxine Sodium [Synthroid] 175 mcg PO DAILY 07/22/20 02/04/21 History Triamterene-Hctz 37.5-25Mg 1 cap PO DAILY 07/22/20 02/04/21 History [Dyazide 37.5-25 Capsule] lisinopriL 20 mg PO BID 07/22/20 02/04/21 History hydrALAZINE HCL [Apresoline] 50 mg PO BID 30 Days #120 tab 07/24/20 02/04/21 Rx Acetaminophen Tab [Tylenol] 500 mg PO Q6H PRN 02/04/21 02/04/21 History Amiodarone [Cordarone] 200 mg PO DAILY 02/04/21 02/04/21 History Carboxymethylcellulose Sodium 1 drop BOTH EYES QID PRN 02/04/21 02/04/21 History [Refresh Tears] amLODIPine [Norvasc] 5 mg PO DAILY #30 tab 02/05/21 Rx Allergies Allergy/AdvReac Type Severity Reaction Status Date / Time Penicillins Allergy Rash/Hives Verified 02/04/21 23:39 Nhgeukv-Ykx-Dab Reductase AdvReac Right Side Verified 02/04/21 23:39 Inhibitor Numbness & Muscle Pain Physical Exam Vitals: Vital Signs Temp Pulse Pulse Resp BP Pulse Ox 02/05/21 10:19 62 18 126/73 98 02/05/21 07:51 97.6 F 57 L 18 183/91 96 02/05/21 06:48 97.6 F 53 L 18 181/93 94 L 02/05/21 05:00 50 L 18 02/05/21 04:00 54 L 18 97 02/05/21 02:00 64 18 176/91 97 02/05/21 01:06 59 L 18 170/89 96 02/05/21 00:15 53 L 02/05/21 00:00 52 L 18 139/89 96 02/04/21 22:03 98.0 F 90 19 186/96 98 Intake and Output 02/04/21 02/05/21 02/05/21 22:59 06:59 14:59 Other: Weight 83.915 kg PHYSICAL EXAMINATION: Patient is lying in the bed comfortably, no acute distress, awake alert and oriented.. HEENT: Normocephalic. Neck is supple. Pupils reactive. Nostrils clear. Oral cavity is moist. Neck reveals no JVD, carotid bruits, or thyromegaly. CHEST EXAMINATION: Trachea is central. Symmetrical expansion. Lung goldman clear to auscultation and percussion. CARDIAC: Normal S1, S2 with no gallops. No murmurs ABDOMEN: Soft. Bowel sounds normal. No organomegaly. No abdominal bruits. Extremities: reveal no edema. No clubbing or cyanosis Neurologically awake, alert, oriented x3 with well-coordinated movements. No focal deficits noted Skin: No rash or skin lesions. Psychiatric: Cooperative. Nonsuicidal Musculoskeletal: No joint swelling or deformity. Normal range of motion. Results CBC & Chem 7: 02/04/21 22:25 02/04/21 22:25 Labs: Abnormal Lab Results - Last 24 Hours (Table) 02/04/21 Range/Units 22:25 Sodium 129 L (137-145) mmol/L Chloride 95 L (98-107) mmol/L Thrombosis Risk Factor Assmnt - DVT/VTE Prophylaxis DVT/VTE Prophylaxis: Pharmacologic Prophylaxis ordered Assessment and Plan Assessment: Accelerated essential hypertension likely due to stressful situation. Improved now. Paroxysmal atrial fibrillation with history of cardioversion x4 and currently m aintaining sinus rhythm. On anticoagulation with Eliquis. Chest discomfort. Rule out ACS. Likely due to elevated blood pressure and stress. Hypothyroidism Hypovolemic hyponatremia. DVT prophylaxis. Patient is already on Eliquis. Plan: Patient is being continued on telemetry monitoring. Serial EKG and troponin x3 -. Cardiology has seen the patient and patient was started on Norvasc along wit h lisinopril, hydralazine. Continue with amiodarone. Continue with home medications including anticoagulation with Eliquis. Blood pressure is improved now. Continue to follow closely. Cardiology is on board.
--- NOTE | 2021-02-05 23:25 | P.DS ---
Providers Date of admission: 02/05/21 00:38 Expected date of discharge: 02/05/21 Attending physician: Talya Cox Consults: 02/05/21 00:38 Consult Physician Urgent Consulting Provider: Yessica Hutson Consult Reason/Comments: cp Do you want consulting provider notified?: Yes Primary care physician: Carol Curtis Hospital Course: Discharge diagnosis Accelerated essential hypertension likely due to stressful situation. Improved now. Paroxysmal atrial fibrillation with history of cardioversion x4 and currently maintaining sinus rhythm. On anticoagulation with Eliquis. Chest discomfort. Rule out ACS. Likely due to elevated blood pressure and stress. Hypothyroidism Hypovolemic hyponatremia. DVT prophylaxis. Patient is already on Eliquis. Hospital course Patient is a 65-year-old female with a known history of hypertension, paroxysmal atrial fibrillation on anticoagulation with Eliquis, hypothyroidism and history of SHAHEEN/cardioversion x4, bilateral laser eye surgery presents to ER with complaints of chest discomfort and tightness feeling in the chest. No radiation of the pain. Denies any complaints of nausea or vomiting. No palpitations. No cough or sputum production. No orthopnea no PND. No diaphoresis. Patient states that she checked her blood pressure at home with SBP greater than 200 and DBP greater than 100 at home and came to ER for evaluation. Patient states that she has been under a lot of stress recently and is going through divorce. On admission blood pressure was 186/96 pulse ox 98% on room air. EKG showed sinus bradycardia with first-degree AV block. Laboratory data showed WBC 6.2 hemoglobin 13.2 and platelets 199 Sodium 139 potassium 3.5 chloride 95 bicarb is 24 and BUN 14 and creatinine 0.62 Troponin x3 - Coronavirus PCR not detected. Patient was continued on telemetry monitoring. Serial EKG and troponin x3 -. Cardiology has seen the patient and patient was started on Norvasc along with lisinopril, hydralazine. Continue with amiodarone. Continue with home medications including anticoagulation with Eliquis. Blood pressure is improved now. Patient did improve clinically and would like to be discharged home. Recommends to follow-up with cardiology in the clinic. Discharge physical examination was done and vitals reviewed. Patient Condition at Discharge: Good Plan - Discharge Summary New Discharge Prescriptions: New amLODIPine [Norvasc] 5 mg PO DAILY #30 tab Continue Gabapentin [Neurontin] 300 mg PO BID Apixaban [Eliquis] 5 mg PO BID #60 tab Triamterene-Hctz 37.5-25Mg [Dyazide 37.5-25 Capsule] 1 cap PO DAILY lisinopriL 20 mg PO BID Acetaminophen Tab [Tylenol] 500 mg PO Q6H PRN PRN Reason: Pain Or Fever > 100.5 Levothyroxine Sodium [Synthroid] 175 mcg PO DAILY hydrALAZINE HCL [Apresoline] 50 mg PO BID 30 Days #120 tab Carboxymethylcellulose Sodium [Refresh Tears] 1 drop BOTH EYES QID PRN PRN Reason: DRY EYES Amiodarone [Cordarone] 200 mg PO DAILY Discharge Medication List Gabapentin [Neurontin] 300 mg PO BID 08/15/17 [History] Apixaban [Eliquis] 5 mg PO BID #60 tab 08/18/17 [Rx] Levothyroxine Sodium [Synthroid] 175 mcg PO DAILY 07/22/20 [History] Triamterene-Hctz 37.5-25Mg [Dyazide 37.5-25 Capsule] 1 cap PO DAILY 07/22/20 [History] lisinopriL 20 mg PO BID 07/22/20 [History] hydrALAZINE HCL [Apresoline] 50 mg PO BID 30 Days #120 tab 07/24/20 [Rx] Acetaminophen Tab [Tylenol] 500 mg PO Q6H PRN 02/04/21 [History] Amiodarone [Cordarone] 200 mg PO DAILY 02/04/21 [History] Carboxymethylcellulose Sodium [Refresh Tears] 1 drop BOTH EYES QID PRN 02/04/21 [History] amLODIPine [Norvasc] 5 mg PO DAILY #30 tab 02/05/21 [Rx] Follow up Appointment(s)/Referral(s): Carol Curtis MD [Primary Care Provider] - 1-2 days Ginny Aguilar MD [STAFF PHYSICIAN] - 1 Week Discharge Disposition: HOME SELF-CARE
[2021-02-06] MEDS ORDERED: ASPIRIN 325 MG TAB PO SCH (09:00)
== END 2021-02-05 20:34 | disposition home or self-care (01) ==
LOC: EC 21:38 → 1SOBS 02-05 00:38 → 6NMEDSUR 02-05 13:56
PROVIDERS: ADMIT Hospitalist; ATTEND Hospitalist
DX: I10 Essential (primary) hypertension (principal); I48.0 Paroxysmal atrial fibrillation; R07.89 Other chest pain; E03.9 Hypothyroidism, unspecified; E86.1 Hypovolemia; E87.1 Hypo-osmolality and hyponatremia; M13.852 Other specified arthritis, left hip; M13.851 Other specified arthritis, right hip; R00.1 Bradycardia, unspecified; Z63.5 Disruption of family by separation and divorce; I44.0 Atrioventricular block, first degree; Z20.822 Contact with and (suspected) exposure to COVID-19; Z79.899 Other long term (current) drug therapy; Z79.890 Hormone replacement therapy; Z79.01 Long term (current) use of anticoagulants; Z88.8 Allergy status to other drugs, medicaments and biological substances; Z88.0 Allergy status to penicillin; Z83.3 Family history of diabetes mellitus; Z80.0 Family history of malignant neoplasm of digestive organs; Z80.49 Family history of malignant neoplasm of other genital organs; Z83.79 Family history of other diseases of the digestive system
CPT/HCPCS: 96376; 96361; 96374; 99285; 36415; 93005; 80053; 84484 ×2; 85025; 85610; 87635; G0378 ×2; J0360

== ENCOUNTER 2021-02-10 06:56 | Emergency (ER) | payer MEDICARE ==
[2021-02-10 07:08] VITALS: RESP 18; TEMP 97.9
[2021-02-10] MEDS ORDERED: SODIUM CHLORIDE 0.9% 1,000 ML IV STA (08:01)
[2021-02-10] MEDS ORDERED: diphenhydrAMINE 50 MG/ML 1 ML VIAL IVP STA (08:01)
[2021-02-10] MEDS ORDERED: METOCLOPRAMIDE 5 MG/ML 2 ML VIAL IVP STA (08:01)
--- NOTE | 2021-02-10 08:04 | ED ---
General Adult HPI - General Source: patient, RN notes reviewed Mode of arrival: ambulatory Limitations: no limitations <Lui Lopez - Last Filed: 02/10/21 09:46> <Nyla Cooley - Last Filed: 02/13/21 00:55> - General Chief complaint: Headache Stated complaint: Revist- High BP, headache Time Seen by Provider: 02/10/21 07:41 - History of Present Illness Initial comments: 65-year-old female with a past medical history of atrial fibrillation, hypertension presents to the emergency room for chief complaint of headache. Patient reports she has had a headache for the past 3 days. States it is constant. It is in the front of her head. Patient states she was just discharged for high blood pressure. She states that Norvasc was added to her hypertension regimen. States she has been somewhat hypertensive at home and thinks her headaches are from this. Denies neck stiffness. Denies fevers. Patient did not take her blood pressure medication today. Patient did try to call her doctor on Wednesday but they did not call back. Has not tried to call this morning yet. (Lui Lopez) - Related Data Home Medications Medication Instructions Recorded Confirmed Gabapentin [Neurontin] 300 mg PO BID 08/15/17 02/10/21 Levothyroxine Sodium [Synthroid] 175 mcg PO DAILY 07/22/20 02/10/21 Triamterene-Hctz 37.5-25Mg 1 cap PO DAILY 07/22/20 02/10/21 [Dyazide 37.5-25 Capsule] lisinopriL 20 mg PO BID 07/22/20 02/10/21 Acetaminophen Tab [Tylenol] 500 mg PO Q6H PRN 02/04/21 02/10/21 Amiodarone [Cordarone] 200 mg PO DAILY 02/04/21 02/10/21 Carboxymethylcellulose Sodium 1 drop BOTH EYES QID PRN 02/04/21 02/10/21 [Refresh Tears] Previous Rx's Medication Instructions Recorded Apixaban [Eliquis] 5 mg PO BID #60 tab 08/18/17 hydrALAZINE HCL [Apresoline] 50 mg PO BID 30 Days #120 tab 07/24/20 amLODIPine [Norvasc] 5 mg PO DAILY #30 tab 02/05/21 Allergies Allergy/AdvReac Type Severity Reaction Status Date / Time Penicillins Allergy Rash/Hives Verified 02/10/21 10:06 Kocagly-Ami-Jvi Reductase AdvReac Right Side Verified 02/10/21 10:06 Inhibitor Numbness & Muscle Pain Review of Systems ROS Other: All systems not noted in ROS Statement are negative. <Vinita Lopezey P - Last Filed: 02/10/21 09:46> ROS Other: All systems not noted in ROS Statement are negative. <Nyla Cooley - Last Filed: 02/13/21 00:55> ROS Statement: Those systems with pertinent positive or pertinent negative responses have been documented in the HPI. Past Medical History Past Medical History: Atrial Fibrillation, Hypertension, Osteoarthritis (OA), Thyroid Disorder Additional Past Medical History / Comment(s): Afib with RVR, arthritis especially in hips, hypothyroid, past L arm fracture/casted, en;arged heart History of Any Multi-Drug Resistant Organisms: None Reported Past Surgical History: No Surgical Hx Reported Additional Past Surgical History / Comment(s): 08/2017 SHAHEEN/cardioversion, bilateral laser eye surgery for cataracts; colonoscopy-normal Past Anesthesia/Blood Transfusion Reactions: No Reported Reaction Additional Past Anesthesia/Blood Transfusion Reaction / Comment(s): pt stated at age 23 had a misscarriage- received blood transfusion0 no reaction. Past Psychological History: No Psychological Hx Reported Smoking Status: Never smoker Past Alcohol Use History: None Reported Past Drug Use History: None Reported - Past Family History Mother Family Medical History: Cancer, Diabetes Mellitus Additional Family Medical History / Comment(s): colon ca, uterine ca Father Family Medical History: Liver Disease Sister(s) Family Medical History: Diabetes Mellitus <Lui Lopez P - Last Filed: 02/10/21 09:46> General Exam Limitations: no limitations General appearance: alert, in no apparent distress Eye exam: Present: normal appearance, PERRL, EOMI. Absent: scleral icterus, co njunctival injection ENT exam: Present: normal exam, mucous membranes moist Neck exam: Present: normal inspection, full ROM. Absent: tenderness Respiratory exam: Present: normal lung sounds bilaterally. Absent: respiratory distress, wheezes Cardiovascular Exam: Present: regular rate, normal rhythm, normal heart sounds GI/Abdominal exam: Present: soft, normal bowel sounds. Absent: distended, tenderness Neurological exam: Present: alert, oriented X3, normal gait <Lui Lopez - Last Filed: 02/10/21 09:46> Course Vital Signs 02/10/21 02/10/21 02/10/21 07:02 09:40 10:44 Temperature 97.9 F 97.9 F Pulse Rate 65 54 L 54 L Respiratory 18 18 18 Rate Blood Pressure 187/99 144/93 147/78 O2 Sat by Pulse 97 93 L 94 L Oximetry Medical Decision Making - Lab Data Result diagrams: 02/10/21 08:32 02/10/21 08:32 <Lui Lopez - Last Filed: 02/10/21 09:46> - Lab Data Result diagrams: 02/10/21 08:32 02/10/21 08:32 <Nyla Cooley - Last Filed: 02/13/21 00:55> - Medical Decision Making She presents hypertensive. This did improve throughout her stay after she took her normal scheduled blood pressure medications. Patient was given migraine cocktail after CT showed no acute process. Her evaluation did reveal minor hyponatremia which is treated with gentle IV fluids. Patient will be discharged home to follow up with primary care. (Lui Lopez) I was available for consultation in the emergency department. The history and physical exam were done by the midlevel provider. I was consulted for this patients care. I reviewed the case with the midlevel provider and based on their presentation of the patient, I agree with the assessment, medical decision making and plan of care as documented. Chart was dictated using [employer] dictation software. Attempts were made to correct any dictation errors however some typographical errors may persist. (Nyla Cooley) - Lab Data Lab Results 02/10/21 02/10/21 Range/Units 08:32 08:32 WBC 6.0 (3.8-10.6) k/uL RBC 4.24 (3.80-5.40) m/uL Hgb 13.5 (11.4-16.0) gm/dL Hct 39.3 (34.0-46.0) % MCV 92.7 (80.0-100.0) fL MCH 31.9 (25.0-35.0) pg MCHC 34.4 (31.0-37.0) g/dL RDW 12.0 (11.5-15.5) % Plt Count 199 (150-450) k/uL MPV 8.3 Neutrophils % 65 % Lymphocytes % 26 % Monocytes % 6 % Eosinophils % 0 % Basophils % 1 % Neutrophils # 3.9 (1.3-7.7) k/uL Lymphocytes # 1.6 (1.0-4.8) k/uL Monocytes # 0.4 (0-1.0) k/uL Eosinophils # 0.0 (0-0.7) k/uL Basophils # 0.1 (0-0.2) k/uL Sodium 129 L (137-145) mmol/L Potassium 3.7 (3.5-5.1) mmol/L Chloride 95 L (98-107) mmol/L Carbon Dioxide 28 (22-30) mmol/L Anion Gap 6 mmol/L BUN 11 (7-17) mg/dL Creatinine 0.64 (0.52-1.04) mg/dL Est GFR (CKD-EPI)AfAm >90 (>60 ml/min/1.73 sqM) Est GFR (CKD-EPI)NonAf >90 (>60 ml/min/1.73 sqM) Glucose 102 H (74-99) mg/dL Calcium 9.2 (8.4-10.2) mg/dL Disposition Is patient prescribed a controlled substance at d/c from ED?: No Time of Disposition: 09:46 <Lui Lopez P - Last Filed: 02/10/21 09:46> <Nyla Cooley A - Last Filed: 02/13/21 00:55> Clinical Impression: Hypertension, Headache Disposition: ADMITTED IP TO THIS [facility] Instructions (If sedation given, give patient instructions): Acute Headache (ED), Hypertension (ED) Additional Instructions: Please follow-up with your doctor in one to 2 days. Return to the emergency room for any worsening symptoms. Referrals: Carol Curtis MD [Primary Care Provider] - 1-2 days
[2021-02-10 08:54] LABS: Basophils # (A) 0.1 k/uL (0-0.2); Basophils % (A) 1 %; Eosinophils % (A) 0 %; HCT 39.3 % (34.0-46.0); HGB 13.5 gm/dL (11.4-16.0); Lymphocytes # (A) 1.6 k/uL (1.0-4.8); Lymphocytes % (A) 26 %; MCH 31.9 pg (25.0-35.0); MCHC 34.4 g/dL (31.0-37.0); MCV 92.7 fL (80.0-100.0); Mean Platelet Volume 8.3; Monocytes # (A) 0.4 k/uL (0-1.0); Monocytes % (A) 6 %; Neutrophils # (A) 3.9 k/uL (1.3-7.7); Neutrophils % (A) 65 %; Platelet Count 199 k/uL (150-450); RBC 4.24 m/uL (3.80-5.40)
--- NOTE | 2021-02-10 08:56 | CT ---
EXAMINATION TYPE: CT brain wo con DATE OF EXAM: 02/10/2021 COMPARISON: 05/22/2018 INDICATION: Headache DLP: 1080.4 mGycm, Automated exposure control for dose reduction was used. CONTRAST: None CT of the brain is performed utilizing 3 mm thick sections through the posterior fossa and 3 mm thick sections through the remaining calvarium. Study is performed within 24 hours of arrival to the hosp ital. No abnormal hyperdensity is present to suggest an acute intracranial hemorrhage. No mass lesion is evident. No acute infarcts are evident. Ventricles and sulci are appropriate for the patient age. Paranasal sinuses and mastoid air cells within the mvjsx-ys-fqiq are clear. IMPRESSIONS: 1. No acute intracranial process.
[2021-02-10] MEDS ORDERED: KETOROLAC 15 MG/ML 1 ML VIAL IVP STA (09:09)
[2021-02-10 09:13] LABS: African American GFR (CKD) >90 (>60 ml/min/1.73 sqM); Anion Gap 6 mmol/L; Blood Urea Nitrogen 11 mg/dL (7-17); Calcium 9.2 mg/dL (8.4-10.2); Carbon Dioxide 28 mmol/L (22-30); Chloride 95 mmol/L (98-107); Glucose 102 mg/dL (74-99); Non-African American GFR(CKD) >90 (>60 ml/min/1.73 sqM); Potassium 3.7 mmol/L (3.5-5.1); Sodium 129 mmol/L (137-145)
[2021-02-10 09:41] VITALS: PULSE 54
[2021-02-10 10:45] VITALS: BP 147/78
== END 2021-02-10 10:45 | disposition other institution (70) ==
LOC: EC 06:56
DX: R51.9 Headache, unspecified (principal); I10 Essential (primary) hypertension; I48.91 Unspecified atrial fibrillation; M19.90 Unspecified osteoarthritis, unspecified site; E07.9 Disorder of thyroid, unspecified; Z79.01 Long term (current) use of anticoagulants; Z88.0 Allergy status to penicillin
CPT/HCPCS: 99285; 96374; 96375 ×2; 96361; 36415; 80048; 85025; 70450; J1200; J2765; J1885

== ENCOUNTER → 2021-02-26 | Outpatient (CLI) | payer MEDICARE ==
[2021-02-26 17:00] LABS: African American GFR (CKD) >90 (>60 ml/min/1.73 sqM); Blood Urea Nitrogen 13 mg/dL (7-17); Non-African American GFR(CKD) >90 (>60 ml/min/1.73 sqM)
--- NOTE | 2021-02-27 07:20 | CT ---
EXAMINATION TYPE: CT angio COW [facility] [place] [facility] [place] DATE OF EXAM: 02/26/2021 6:14 PM COMPARISON: CT brain February 10, 2021 HISTORY: headaches CT DLP: 130.2 mGycm Automated exposure control for dose reduction was used. TECHNIQUE: Performed with IV Contrast, patient injected with 65 mL of Isovue 370. 3D reconstructed images are created on an independent workstation and reviewed.. FINDINGS: There are codominant vertebral arteries with slightly tortuous course distally patent to the basilar junction. There is patent right posterior communicating artery. There is hypoplastic left posterior c ommunicating artery. There is no significant focal stenosis or aneurysm in the posterior circulation. Anterior circulation shows poor visualization of anterior communicating artery due to location near t he skull base and close proximity of the anterior cerebral arteries. There is no significant focal st enosis or aneurysm. IMPRESSION: No aneurysm at the level of the [facility] [place] [facility] [place] [facility] [place].
== END | disposition home or self-care (01) ==
LOC: RADCTMAIN 16:21
PROVIDERS: ATTEND Psychiatry & Neurology Neurology
DX: R51.9 Headache, unspecified (principal)
CPT/HCPCS: 82565; 84520; 70496; 36415; Q9967

== ENCOUNTER 2023-07-20 12:58 | Emergency (ER) | payer MEDICARE ==
[2023-07-20 13:30] VITALS: TEMP 98.2
[2023-07-20 13:38] LABS: Basophils % (A) 0 %; Eosinophils % (A) 0 %; HCT 39.9 % (34.0-46.0); HGB 13.3 gm/dL (11.4-16.0); Lymphocytes # (A) 1.6 k/uL (1.0-4.8); Lymphocytes % (A) 26 %; MCH 31.3 pg (25.0-35.0); MCHC 33.2 g/dL (31.0-37.0); MCV 94.3 fL (80.0-100.0); Mean Platelet Volume 8.1; Monocytes # (A) 0.3 k/uL (0-1.0); Monocytes % (A) 6 %; Neutrophils # (A) 4.1 k/uL (1.3-7.7); Neutrophils % (A) 67 %; Platelet Count 209 k/uL (150-450); RBC 4.23 m/uL (3.80-5.40); RDW 12.6 % (11.5-15.5); WBC 6.2 k/uL (3.8-10.6)
--- NOTE | 2023-07-20 13:43 | ED ---
General Adult HPI - General Chief complaint: Syncope Stated complaint: Syncope Time Seen by Provider: 07/20/23 13:00 Source: patient, RN notes reviewed Mode of arrival: EMS Limitations: no limitations - History of Present Illness Initial comments: 68-year-old female presents emergency department with chief complaint of near syncopal event. She states she was shopping states she became very lightheaded felt like she was going to pass out. She states that symptoms did improve after sitting down. EMS was called at time and brought here. She does have a history of A-fib with cardioversion. Patient is on Eliquis denies chest pain shortness of breath no headache no focal weakness no other complaints. - Related Data Home Medications Medication Instructions Recorded Confirmed Gabapentin [Neurontin] 300 mg PO BID 08/15/17 07/20/23 Levothyroxine Sodium [Synthroid] 175 mcg PO DAILY 07/22/20 07/20/23 Triamterene-Hctz 37.5-25Mg 1 cap PO DAILY 07/22/20 07/20/23 [Dyazide 37.5-25 Capsule] lisinopriL [Prinivil] 20 mg PO DAILY 07/22/20 07/20/23 Acetaminophen Tab [Tylenol] 500 mg PO Q6H PRN 02/04/21 07/20/23 ALPRAZolam [Xanax] 0.25 mg PO BID PRN 07/20/23 07/20/23 Ergocalciferol (Vitamin D2) 1,250 mcg PO WE 07/20/23 07/20/23 [Drisdol (50,000 Iu)] Estradiol Cream [Estrace Cream 1 gm VAGINAL MOWEFR 07/20/23 07/20/23 0.01%] Oxybutynin Chloride [oxyBUTYnin 10 mg PO DAILY 07/20/23 07/20/23 chloride ER] hydrALAZINE HCL [Apresoline] 50 mg PO DAILY 07/20/23 07/20/23 Previous Rx's Medication Instructions Recorded Apixaban [Eliquis] 5 mg PO BID #60 tab 08/18/17 amLODIPine [Norvasc] 5 mg PO DAILY #30 tab 02/05/21 Allergies Allergy/AdvReac Type Severity Reaction Status Date / Time Penicillins Allergy Rash/Hives Verified 07/20/23 15:04 Xxrdgpd-EXV-UbR Reductase AdvReac Right Side Verified 07/20/23 15:04 Inhibitor Numbness & [Cxanjan-Qls-Qti Reductase Muscle Pain Inhibitor] Review of Systems ROS Statement: Those systems with pertinent positive or pertinent negative responses have been documented in the HPI. ROS Other: All systems not noted in ROS Statement are negative. Past Medical History Past Medical History: Atrial Fibrillation, Hypertension, Osteoarthritis (OA), Thyroid Disorder Additional Past Medical History / Comment(s): Afib with RVR, arthritis especially in hips, hypothyroid, past L arm fracture/casted, en;arged heart History of Any Multi-Drug Resistant Organisms: None Reported Past Surgical History: No Surgical Hx Reported Additional Past Surgical History / Comment(s): 08/2017 SHAHEEN/cardioversion, bilateral laser eye surgery for cataracts; colonoscopy-normal Past Anesthesia/Blood Transfusion Reactions: No Reported Reaction Additional Past Anesthesia/Blood Transfusion Reaction / Comment(s): pt stated at age 23 had a misscarriage- received blood transfusion0 no reaction. Past Psychological History: No Psychological Hx Reported Smoking Status: Never smoker Past Alcohol Use History: None Reported Past Drug Use History: None Reported - Past Family History Mother Family Medical History: Cancer, Diabetes Mellitus Additional Family Medical History / Comment(s): colon ca, uterine ca Father Family Medical History: Liver Disease Sister(s) Family Medical History: Diabetes Mellitus General Exam Limitations: no limitations General appearance: alert, in no apparent distress Head exam: Present: atraumatic, normocephalic, normal inspection ENT exam: Present: normal exam, mucous membranes moist. Absent: normal oropharynx Neck exam: Present: normal inspection. Absent: tenderness, meningismus, lymphadenopathy Respiratory exam: Present: normal lung sounds bilaterally. Absent: respiratory distress, wheezes, rales, rhonchi, stridor Cardiovascular Exam: Present: irregular rhythm, normal heart sounds. Absent: regular rate, normal rhythm, systolic murmur, diastolic murmur, rubs, gallop, clicks Neurological exam: Present: alert, oriented X3, CN II-XII intact, reflexes normal. Absent: motor sensory deficit Skin exam: Present: warm, dry, intact, normal color. Absent: rash Course Vital Signs 07/20/23 07/20/23 07/20/23 13:00 13:05 14:05 Temperature 98.2 F Pulse Rate 74 72 78 Pulse Rate [ Sitting] Pulse Rate [ Standing] Pulse Rate [ Supine] Respiratory 18 16 16 Rate Blood Pressure 110/68 112/72 122/76 Blood Pressure [Sitting] Blood Pressure [Standing] Blood Pressure [Supine] O2 Sat by Pulse 98 99 98 Oximetry 07/20/23 07/20/23 07/20/23 14:19 15:05 16:05 Temperature Pulse Rate 66 81 Pulse Rate [ 72 Sitting] Pulse Rate [ 72 Standing] Pulse Rate [ 85 Supine] Respiratory 16 16 20 Rate Blood Pressure 110/80 114/56 Blood Pressure 111/62 [Sitting] Blood Pressure 103/70 [Standing] Blood Pressure 112/71 [Supine] O2 Sat by Pulse 98 99 99 Oximetry 07/20/23 16:31 Temperature Pulse Rate 74 Pulse Rate [ Sitting] Pulse Rate [ Standing] Pulse Rate [ Supine] Respiratory 16 Rate Blood Pressure 124/78 Blood Pressure [Sitting] Blood Pressure [Standing] Blood Pressure [Supine] O2 Sat by Pulse 97 Oximetry EKG Findings - EKG Comments: EKG Findings:: EKG performed at 13: 54 A-fib with a rate of 70 QRS 107 QT/QTc 409/431 - EKG Results: EKG: interpreted by SARAH Medical Decision Making - Medical Decision Making Was pt. sent in by a medical professional or institution (, PA, SUBCONTRACT MANAGER, urgent care, hospital, or halfway...) When possible be specific @ -No Did you speak to anyone other than the patient for history (EMS, parent, family, police, friend...)? What history was obtained from this source @ -No Did you review nursing and triage notes (agree or disagree)? Why? @ -I reviewed and agree with nursing and triage notes Were old charts reviewed (outside hosp., previous admission, EMS record, old EKG , old radiological studies, urgent care reports/EKG's, halfway records)? Report findings @ -No old charts were reviewed Differential Diagnosis (chest pain, altered mental status, abdominal pain women, abdominal pain men, vaginal bleeding, weakness, fever, dyspnea, syncope, headache, dizziness, GI bleed, back pain, seizure, CVA, palpatations, mental health, musculoskeletal)? @ -Differential Syncope: Valvular disease, hypertrophic cardiomyopathy, pulmonary embolism, tamponade, tachycardia, bradycardia, [place], hypovolemia, hemorrhage, dissection, anemia, intracranial hemorrhage, seizure, hypoglycemia, carbon monoxide poisoning, this is not meant to be an all-inclusive list. EKG interpreted by me (3pts min.). @ -As above X-rays interpreted by me (1pt min.). @ -None done CT interpreted by me (1pt min.). @ -None done U/S interpreted by me (1pt. min.). @ -None done What testing was considered but not performed or refused? (CT, X-rays, U/S, labs)? Why? @ -None What meds were considered but not given or refused? Why? @ -None Did you discuss the management of the patient with other professionals (professionals i.e. Dr., PA, SUBCONTRACT MANAGER, lab, RT, psych nurse, manager social work, energy manager, teacher, juvenile officer, therapeutic case manager)? Give summary @ -No Was smoking cessation discussed for >3mins.? @ -No Was critical care preformed (if so, how long)? @ -No Were there social determinants of health that impacted care today? How? (Homelessness, low income, unemployed, alcoholism, drug addiction, transportati on, low edu. Level, literacy, decrease access to med. care, correction, rehab)? @ -No Was there de-escalation of care discussed even if they declined (Discuss DNR or withdrawal of care, Hospice)? DNR status @ -No What co-morbidities impacted this encounter? (DM, HTN, Smoking, COPD, CAD, Cancer, CVA, ARF, Chemo, Hep., AIDS, mental health diagnosis, sleep apnea, morbid obesity)? @ -A-fib Was patient admitted / discharged? Hospital course, mention meds given and route, prescriptions, significant lab abnormalities, going to OR and other pertinent info. @ -Discharge patient feels great improved she is asymptomatic patient near syncopal episode with no acute findings. Patient offered admission but states that she is from out of town and feels comfortable discharge Undiagnosed new problem with uncertain prognosis? @ -No Drug Therapy requiring intensive monitoring for toxicity (Heparin, Nitro, Insuli n, Cardizem)? @ -No Were any procedures done? @ -No Diagnosis/symptom? @ -Near syncope Acute, or Chronic, or Acute on Chronic? @ -Acute Uncomplicated (without systemic symptoms) or Complicated (systemic symptoms)? @ -Complicated Side effects of treatment? @ -No Exacerbation, Progression, or Severe Exacerbation? @ -No Poses a threat to life or bodily function? How? (Chest pain, [place], [place], pneumonia, PE, COPD, DKA, ARF, appy, cholecystitis, CVA, Diverticulitis, Homicidal, Suicidal, threat to staff... and all critical care pts) @ -No - Lab Data Result diagrams: 07/20/23 13:28 07/20/23 13:28 Lab Results 07/20/23 07/20/23 07/20/23 Range/Units 13:28 13:28 13:28 WBC 6.2 (3.8-10.6) k/uL RBC 4.23 (3.80-5.40) m/uL Hgb 13.3 (11.4-16.0) gm/dL Hct 39.9 (34.0-46.0) % MCV 94.3 (80.0-100.0) fL MCH 31.3 (25.0-35.0) pg MCHC 33.2 (31.0-37.0) g/dL RDW 12.6 (11.5-15.5) % Plt Count 209 (150-450) k/uL MPV 8.1 Neutrophils % 67 % Lymphocytes % 26 % Monocytes % 6 % Eosinophils % 0 % Basophils % 0 % Neutrophils # 4.1 (1.3-7.7) k/uL Lymphocytes # 1.6 (1.0-4.8) k/uL Monocytes # 0.3 (0-1.0) k/uL Eosinophils # 0.0 (0-0.7) k/uL Basophils # 0.0 (0-0.2) k/uL PT 11.6 (10.0-12.5) sec INR 1.1 (<1.2) APTT 26.6 (22.0-30.0) sec Sodium 130 L (137-145) mmol/L Potassium 3.5 (3.5-5.1) mmol/L Chloride 100 (98-107) mmol/L Carbon Dioxide 23 (22-30) mmol/L Anion Gap 7 mmol/L BUN 15 (7-17) mg/dL Creatinine 0.87 (0.52-1.04) mg/dL Est GFR (CKD-EPI)AfAm 78 (>60 ml/min/1.73 sqM) Est GFR (CKD-EPI)NonAf 68 (>60 ml/min/1.73 sqM) Glucose 101 H (74-99) mg/dL Calcium 8.9 (8.4-10.2) mg/dL Magnesium 1.7 (1.6-2.3) mg/dL Total Bilirubin 1.5 H (0.2-1.3) mg/dL AST 21 (14-36) U/L ALT 16 (4-34) U/L Alkaline Phosphatase 56 (38-126) U/L Troponin I (0.000-0.034) ng/mL Total Protein 6.3 (6.3-8.2) g/dL Albumin 3.7 (3.5-5.0) g/dL 07/20/23 Range/Units 13:28 WBC (3.8-10.6) k/uL RBC (3.80-5.40) m/uL Hgb (11.4-16.0) gm/dL Hct (34.0-46.0) % MCV (80.0-100.0) fL MCH (25.0-35.0) pg MCHC (31.0-37.0) g/dL RDW (11.5-15.5) % Plt Count (150-450) k/uL MPV Neutrophils % % Lymphocytes % % Monocytes % % Eosinophils % % Basophils % % Neutrophils # (1.3-7.7) k/uL Lymphocytes # (1.0-4.8) k/uL Monocytes # (0-1.0) k/uL Eosinophils # (0-0.7) k/uL Basophils # (0-0.2) k/uL PT (10.0-12.5) sec INR (<1.2) APTT (22.0-30.0) sec Sodium (137-145) mmol/L Potassium (3.5-5.1) mmol/L Chloride (98-107) mmol/L Carbon Dioxide (22-30) mmol/L Anion Gap mmol/L BUN (7-17) mg/dL Creatinine (0.52-1.04) mg/dL Est GFR (CKD-EPI)AfAm (>60 ml/min/1.73 sqM) Est GFR (CKD-EPI)NonAf (>60 ml/min/1.73 sqM) Glucose (74-99) mg/dL Calcium (8.4-10.2) mg/dL Magnesium (1.6-2.3) mg/dL Total Bilirubin (0.2-1.3) mg/dL AST (14-36) U/L ALT (4-34) U/L Alkaline Phosphatase (38-126) U/L Troponin I 0.015 (0.000-0.034) ng/mL Total Protein (6.3-8.2) g/dL Albumin (3.5-5.0) g/dL Disposition Clinical Impression: Near syncope Disposition: HOME SELF-CARE Condition: Stable Instructions (If sedation given, give patient instructions): Near Syncope (ED) Additional Instructions: Please return to the Emergency Department if symptoms worsen or any other concerns. Is patient prescribed a controlled substance at d/c from ED?: No Referrals: Carol Curtis MD [Primary Care Provider] - 1-2 days Time of Disposition: 15:34
[2023-07-20 13:51] LABS: INR 1.1 (<1.2); Partial Thromboplastin Time 26.6 sec (22.0-30.0); Prothrombin Time 11.6 sec (10.0-12.5)
[2023-07-20] MEDS: SODIUM CHLORIDE 0.9% 1,000 ML IV STA (14:28)
[2023-07-20 14:31] LABS: ALT 16 U/L (4-34); AST 21 U/L (14-36); African American GFR (CKD) 78 (>60 ml/min/1.73 sqM); Albumin 3.7 g/dL (3.5-5.0); Alkaline Phosphatase 56 U/L (38-126); Anion Gap 7 mmol/L; Blood Urea Nitrogen 15 mg/dL (7-17); Calcium 8.9 mg/dL (8.4-10.2); Carbon Dioxide 23 mmol/L (22-30); Chloride 100 mmol/L (98-107); Glucose 101 mg/dL (74-99); Magnesium 1.7 mg/dL (1.6-2.3); Non-African American GFR(CKD) 68 (>60 ml/min/1.73 sqM); Potassium 3.5 mmol/L (3.5-5.1); Sodium 130 mmol/L (137-145); Total Bilirubin 1.5 mg/dL (0.2-1.3); Total Protein 6.3 g/dL (6.3-8.2)
[2023-07-20 15:00] VITALS: RESP 16
[2023-07-20 17:08] VITALS: BP 124/78; PULSE 74
== END 2023-07-20 16:35 | disposition home or self-care (01) ==
LOC: EC 12:58
DX: R55 Syncope and collapse (principal); I48.91 Unspecified atrial fibrillation; Z88.0 Allergy status to penicillin; Z88.8 Allergy status to other drugs, medicaments and biological substances
CPT/HCPCS: 36415; 80053; 83735; 84484; 85025; 85610; 85730; 93005; 96360; 99285